=== PATIENT | female | born 1955 | race Caucasian/White ===

== ENCOUNTER 2017-05-24 17:46 | Inpatient (IN) | payer BC, SELFPAY ==
[~2017-05-24] VITALS: Ht 167.6 cm; Wt 100.0 kg
[~2017-05-24 17:46] MED LIST: AMLO5; ASPI81CH PO; Ativan1 MG PO; CRUTCH2 USE; CYCL10 PO; ESCI10 PO; FISH1000 PO; GABA300 PO; GEMF600; GEMF600 PO; HYDACE5 PO; HYDMOR2 PO; IBUP800 PO; LOSA25 PO; LOSA50 PO; LOSHYD; LOSHYD100 PO; Lopressor 50 mg50 MG PO; METCAR500 PO; METO50; METO50 PO; NIACIN; NIASPAN PO; NITR100 PO; Norco 5-325 Ta1 EACH PO; OLME20 PO; OLME20-12. PO; OMEP20ER PO; ONDA4 PO; OXYACE5T PO; OXYC30 PO; PENVK500 PO; POLY500 PO; PRED20; PRED20 PO; SPRIX1 EACH NS; ZOLP5 PO; [UNRECOGNIZED DRUG - OTHER]
[2017-05-24 18:16] LABS: BASOPHILS ABSOLUTE AUTO 0.03 K/mm3 (0.00-0.23); BASOPHILS PERCENT AUTO 0 % (0-2); EOSINOPHILS ABSOLUTE AUTO 0.04 K/mm3 (0.00-0.68); EOSINOPHILS PERCENT AUTO 0 % (0-6); Hematocrit 44.8 % (33.0-51.0); Hemoglobin 15.6 g/dL (11.5-16.0); IMMATURE GRAN ABSOLUTE AUTO 0.02 K/mm3 (0.00-0.10); IMMATURE GRAN PERCENT AUTO 0 % (0-1); LYMPHOCYTES PERCENT AUTO 34 % (21-46); MONOCYTES ABSOLUTE AUTO 0.69 K/mm3 (0.16-1.47); MONOCYTES PERCENT AUTO 7 % (4-13); Mean Corpuscular HGB 34.1 pg (26.0-34.0); Mean Corpuscular HGB Conc 34.8 g/dL (31.5-36.5); Mean Corpuscular Volume 98 fL (80-100); Mean Platelet Volume 9.3 fL (9.1-12.4); NEUTROPHILS ABSOLUTE AUTO 5.39 K/mm3 (1.96-9.15); NEUTROPHILS PERCENT AUTO 58 % (41-73); Platelet Count 343 K/mm3 (150-400); RDW Coefficient Variation 12.5 % (11.7-14.2); RDW Standard Deviation 44.5 fL (35.1-46.3); Red Blood Cell Count 4.58 M/mm3 (3.80-5.20); White Blood Cell Count 9.37 K/mm3 (4.00-11.30)
[2017-05-24] MEDS ORDERED: Omeprazole20 M1 PO (18:31)
[2017-05-24] MEDS ORDERED: ZOLP5 PO (18:32)
[2017-05-24] MEDS ORDERED: GEMF600 PO (18:33)
[2017-05-24] MEDS ORDERED: NIAC500ER PO (18:34)
[2017-05-24] MEDS ORDERED: ONDA4ODT MM (18:34)
[2017-05-24] MEDS ORDERED: Aspirin EC81 MG PO (18:34)
[2017-05-24] MEDS ORDERED: CYCL10 PO (18:34)
[2017-05-24 18:35] LABS: D-Dimer, Quantitative 1.14 mg/L FEU (0.00-0.52)
[2017-05-24] MEDS ORDERED: HYDPAM25 PO (18:35)
[2017-05-24] MEDS ORDERED: METCAR500 PO (18:35)
[2017-05-24 18:40] LABS: Alanine Aminotransfer (ALT/SGP 29 U/L (12-78); Albumin, Blood 3.7 g/dL (3.4-5.0); Albumin/Globulin Ratio 0.9 (0.8-1.8); Alk Phos 116 U/L (50-136); Anion Gap 19 mmol/L (6-16); Aspartate Aminotrans (AST/SGOT 25 U/L (12-37); Blood Urea Nitrogen 20 mg/dL (8-24); Bun/Creatinine Ratio 27.6 (12.0-20.0); CO2, Blood 18 mmol/L (21-32); Calcium, Blood 10.2 mg/dL (8.5-10.1); Chloride, Blood 99 mmol/L (98-108); Creatinine, Blood 0.72 mg/dL (0.40-1.00); Globulin, Blood 3.9 g/dL (2.2-4.0); Glomerular Filtration Rate >60 (60-); Glucose, Blood 201 mg/dL (70-99); Magnesium, Blood 2.5 mg/dL (1.6-2.4); Potassium, Blood 2.6 mmol/L (3.5-5.5); Sodium, Blood 136 mmol/L (136-145); Total Protein, Blood 7.6 g/dL (6.4-8.2); Troponin I <0.015 ng/mL (0.000-0.040)
[2017-05-24 21:43] LABS: International Normalized Ratio 0.96
[2017-05-25 04:25] LABS: BASOPHILS ABSOLUTE AUTO 0.04 K/mm3 (0.00-0.23); BASOPHILS PERCENT AUTO 1 % (0-2); EOSINOPHILS PERCENT AUTO 2 % (0-6); Hematocrit 38.9 % (33.0-51.0); Hemoglobin 13.2 g/dL (11.5-16.0); IMMATURE GRAN ABSOLUTE AUTO 0.02 K/mm3 (0.00-0.10); IMMATURE GRAN PERCENT AUTO 0 % (0-1); LYMPHOCYTES ABSOLUTE AUTO 3.47 K/mm3 (0.84-5.20); LYMPHOCYTES PERCENT AUTO 39 % (21-46); MONOCYTES ABSOLUTE AUTO 0.87 K/mm3 (0.16-1.47); MONOCYTES PERCENT AUTO 10 % (4-13); Mean Corpuscular HGB 34.3 pg (26.0-34.0); Mean Corpuscular HGB Conc 33.9 g/dL (31.5-36.5); Mean Platelet Volume 9.3 fL (9.1-12.4); NEUTROPHILS ABSOLUTE AUTO 4.27 K/mm3 (1.96-9.15); NEUTROPHILS PERCENT AUTO 48 % (41-73); Platelet Count 275 K/mm3 (150-400); RDW Coefficient Variation 12.9 % (11.7-14.2); RDW Standard Deviation 46.9 fL (35.1-46.3); Red Blood Cell Count 3.85 M/mm3 (3.80-5.20); White Blood Cell Count 8.87 K/mm3 (4.00-11.30)
[2017-05-25 04:30] LABS: Mean Corpuscular Volume 101 fL (80-100)
[2017-05-25 05:01] LABS: Alanine Aminotransfer (ALT/SGP 21 U/L (12-78); Albumin, Blood 3.2 g/dL (3.4-5.0); Alk Phos 85 U/L (50-136); Anion Gap 9 mmol/L (6-16); Aspartate Aminotrans (AST/SGOT 21 U/L (12-37); Bilirubin, Total 1.4 mg/dL (0.1-1.0); Blood Urea Nitrogen 18 mg/dL (8-24); Bun/Creatinine Ratio 27.5 (12.0-20.0); CO2, Blood 26 mmol/L (21-32); Chloride, Blood 104 mmol/L (98-108); Creatinine, Blood 0.65 mg/dL (0.40-1.00); Globulin, Blood 3.1 g/dL (2.2-4.0); Glomerular Filtration Rate >60 (60-); Glucose, Blood 142 mg/dL (70-99); Potassium, Blood 3.7 mmol/L (3.5-5.5); Sodium, Blood 139 mmol/L (136-145); Total Protein, Blood 6.3 g/dL (6.4-8.2)
[2017-05-25 05:27] LABS: Calcium, Blood 8.4 mg/dL (8.5-10.1)
[2017-05-26 05:11] LABS: BASOPHILS ABSOLUTE AUTO 0.03 K/mm3 (0.00-0.23); BASOPHILS PERCENT AUTO 1 % (0-2); EOSINOPHILS ABSOLUTE AUTO 0.19 K/mm3 (0.00-0.68); EOSINOPHILS PERCENT AUTO 4 % (0-6); Hemoglobin 12.1 g/dL (11.5-16.0); IMMATURE GRAN ABSOLUTE AUTO 0.01 K/mm3 (0.00-0.10); IMMATURE GRAN PERCENT AUTO 0 % (0-1); LYMPHOCYTES ABSOLUTE AUTO 1.99 K/mm3 (0.84-5.20); LYMPHOCYTES PERCENT AUTO 42 % (21-46); MONOCYTES ABSOLUTE AUTO 0.45 K/mm3 (0.16-1.47); MONOCYTES PERCENT AUTO 10 % (4-13); Mean Corpuscular HGB Conc 32.7 g/dL (31.5-36.5); Mean Platelet Volume 9.2 fL (9.1-12.4); NEUTROPHILS ABSOLUTE AUTO 2.07 K/mm3 (1.96-9.15); NEUTROPHILS PERCENT AUTO 44 % (41-73); Platelet Count 205 K/mm3 (150-400); RDW Coefficient Variation 12.7 % (11.7-14.2); RDW Standard Deviation 48.5 fL (35.1-46.3); Red Blood Cell Count 3.56 M/mm3 (3.80-5.20); White Blood Cell Count 4.74 K/mm3 (4.00-11.30)
[2017-05-26 05:17] LABS: Mean Corpuscular Volume 104 fL (80-100)
[2017-05-26 05:47] LABS: Magnesium, Blood 2.3 mg/dL (1.6-2.4)
[2017-05-26 05:48] LABS: Anion Gap 5 mmol/L (6-16); Blood Urea Nitrogen 19 mg/dL (8-24); Bun/Creatinine Ratio 31.4 (12.0-20.0); CO2, Blood 27 mmol/L (21-32); Calcium, Blood 8.4 mg/dL (8.5-10.1); Chloride, Blood 105 mmol/L (98-108); Creatinine, Blood 0.61 mg/dL (0.40-1.00); Glomerular Filtration Rate >60 (60-); Glucose, Blood 113 mg/dL (70-99); Potassium, Blood 4.1 mmol/L (3.5-5.5); Sodium, Blood 137 mmol/L (136-145)
[2017-05-26] MEDS ORDERED: LOPE2C PO (10:30)
[2017-05-26] MEDS ORDERED: Percocet 5-3251 EACH PO (10:32)
== END 2017-05-26 11:33 | disposition home or self-care (01) | DRG 309 ==
LOC: ER 17:46 → PCU 17:47
PROVIDERS: Emergency Medicine; Internal Medicine
PROC: 3E0234Z Introduction of Serum, Toxoid and Vaccine into Muscle, Percutaneous Approach (ICD-10-PCS; principal; 2017-05-25)
DX: I48.91 Unspecified atrial fibrillation (principal); S22.31XA Fracture of one rib, right side, initial encounter for closed fracture; E86.0 Dehydration; E87.6 Hypokalemia; I10 Essential (primary) hypertension; K44.9 Diaphragmatic hernia without obstruction or gangrene; Z23 Encounter for immunization; Z79.82 Long term (current) use of aspirin; Z79.899 Other long term (current) drug therapy; Z88.8 Allergy status to other drugs, medicaments and biological substances
CPT/HCPCS: 36415; 70450; 71045; 71260; 80048; 80053; 83036; 83735; 83880; 84484; 85025; 85379; 85610; 85730; 87015; 87045; 87046; 87205; 87899; 93005; 93010; 96365; 96367; 96368; 96372; 96375; 96376; 99285; G0008; G0378; J1644; J1650; J2001; J2060; J2270; J2405; J3480; J7030; J7050; Q2038; Q9967

== ENCOUNTER 2017-05-28 17:46 | Observation (INO) | payer BC, SELFPAY ==
[~2017-05-28] VITALS: Ht 167.6 cm; Wt 104.7 kg
[~2017-05-28 17:46] MED LIST changes: +Aspirin EC81 MG PO; +HYDPAM25 PO; +LOPE2C PO; +NIAC500ER PO; +ONDA4ODT MM; +Omeprazole20 M1 PO; +Percocet 5-3251 EACH PO
[2017-05-28 18:28] LABS: BASOPHILS ABSOLUTE AUTO 0.02 K/mm3 (0.00-0.23); BASOPHILS PERCENT AUTO 0 % (0-2); EOSINOPHILS ABSOLUTE AUTO 0.11 K/mm3 (0.00-0.68); EOSINOPHILS PERCENT AUTO 2 % (0-6); Hematocrit 42.8 % (33.0-51.0); Hemoglobin 15.3 g/dL (11.5-16.0); IMMATURE GRAN ABSOLUTE AUTO 0.02 K/mm3 (0.00-0.10); IMMATURE GRAN PERCENT AUTO 0 % (0-1); LYMPHOCYTES ABSOLUTE AUTO 3.19 K/mm3 (0.84-5.20); LYMPHOCYTES PERCENT AUTO 46 % (21-46); MONOCYTES ABSOLUTE AUTO 0.33 K/mm3 (0.16-1.47); MONOCYTES PERCENT AUTO 5 % (4-13); Mean Corpuscular HGB 34.9 pg (26.0-34.0); Mean Corpuscular HGB Conc 35.7 g/dL (31.5-36.5); Mean Platelet Volume 9.2 fL (9.1-12.4); NEUTROPHILS PERCENT AUTO 47 % (41-73); Platelet Count 287 K/mm3 (150-400); RDW Coefficient Variation 12.5 % (11.7-14.2); RDW Standard Deviation 44.5 fL (35.1-46.3); Red Blood Cell Count 4.38 M/mm3 (3.80-5.20); White Blood Cell Count 6.97 K/mm3 (4.00-11.30)
[2017-05-28 18:39] LABS: Mean Corpuscular Volume 98 fL (80-100)
[2017-05-28 18:42] LABS: Source, Urine Clean Catch
[2017-05-28 18:53] LABS: Troponin I <0.015 ng/mL (0.000-0.040)
[2017-05-28 18:53] LABS: Appearance, Urine Clear (Clear); Bilirubin, Urine Neg (Neg); Blood, Urine 2+ (Neg); Color, Urine Yellow (P-Yellow); Glucose Qualitative, Urine Neg (Neg); Ketones, Urine Neg (Neg); Leukocyte Esterase, Urine 1+ (Neg); Nitrite, Urine Neg (Neg); Protein, Urine Neg (Neg); Specific Gravity, Urine 1.005 (1.003-1.022); Urobilinogen, Urine NORM (Normal)
[2017-05-28 19:09] LABS: Alanine Aminotransfer (ALT/SGP 36 U/L (12-78); Albumin, Blood 3.6 g/dL (3.4-5.0); Albumin/Globulin Ratio 0.9 (0.8-1.8); Alk Phos 102 U/L (50-136); Anion Gap 17 mmol/L (6-16); Aspartate Aminotrans (AST/SGOT 42 U/L (12-37); Bilirubin, Total 0.6 mg/dL (0.1-1.0); Blood Urea Nitrogen 13 mg/dL (8-24); Bun/Creatinine Ratio 21.8 (12.0-20.0); CO2, Blood 16 mmol/L (21-32); Calcium, Blood 8.8 mg/dL (8.5-10.1); Chloride, Blood 107 mmol/L (98-108); Glomerular Filtration Rate >60 (60-); Glucose, Blood 156 mg/dL (70-99); Sodium, Blood 140 mmol/L (136-145); Total Protein, Blood 7.6 g/dL (6.4-8.2)
[2017-05-28 19:15] LABS: White Blood Cells, Urine 0-2 /hpf (0-5)
[2017-05-28 19:16] LABS: Bacteria Few /hpf; Squamous Epithelial Cells Few /hpf (Few)
[2017-05-28] MEDS ORDERED: ZOLP5 PO (20:49)
[2017-05-29 02:24] LABS: BASOPHILS ABSOLUTE AUTO 0.04 K/mm3 (0.00-0.23); BASOPHILS PERCENT AUTO 1 % (0-2); EOSINOPHILS ABSOLUTE AUTO 0.21 K/mm3 (0.00-0.68); EOSINOPHILS PERCENT AUTO 3 % (0-6); Hematocrit 40.8 % (33.0-51.0); Hemoglobin 13.9 g/dL (11.5-16.0); IMMATURE GRAN ABSOLUTE AUTO 0.02 K/mm3 (0.00-0.10); IMMATURE GRAN PERCENT AUTO 0 % (0-1); LYMPHOCYTES ABSOLUTE AUTO 4.14 K/mm3 (0.84-5.20); LYMPHOCYTES PERCENT AUTO 55 % (21-46); MONOCYTES ABSOLUTE AUTO 0.74 K/mm3 (0.16-1.47); MONOCYTES PERCENT AUTO 10 % (4-13); Mean Corpuscular HGB 34.5 pg (26.0-34.0); Mean Corpuscular HGB Conc 34.1 g/dL (31.5-36.5); Mean Platelet Volume 9.2 fL (9.1-12.4); NEUTROPHILS ABSOLUTE AUTO 2.33 K/mm3 (1.96-9.15); NEUTROPHILS PERCENT AUTO 31 % (41-73); Platelet Count 248 K/mm3 (150-400); RDW Coefficient Variation 12.8 % (11.7-14.2); RDW Standard Deviation 46.9 fL (35.1-46.3); Red Blood Cell Count 4.03 M/mm3 (3.80-5.20); White Blood Cell Count 7.48 K/mm3 (4.00-11.30)
[2017-05-29 02:27] LABS: Mean Corpuscular Volume 101 fL (80-100)
[2017-05-29 02:44] LABS: CPK Creatine Kinase 48 U/L (26-193); Troponin I <0.015 ng/mL (0.000-0.040)
[2017-05-29 02:47] LABS: Alanine Aminotransfer (ALT/SGP 27 U/L (12-78); Albumin, Blood 3.4 g/dL (3.4-5.0); Alk Phos 82 U/L (50-136); Anion Gap 6 mmol/L (6-16); Aspartate Aminotrans (AST/SGOT 28 U/L (12-37); Bilirubin, Total 0.4 mg/dL (0.1-1.0); Blood Urea Nitrogen 14 mg/dL (8-24); Bun/Creatinine Ratio 24.3 (12.0-20.0); CO2, Blood 25 mmol/L (21-32); Calcium, Blood 8.4 mg/dL (8.5-10.1); Chloride, Blood 110 mmol/L (98-108); Creatinine, Blood 0.58 mg/dL (0.40-1.00); Globulin, Blood 3.5 g/dL (2.2-4.0); Glomerular Filtration Rate >60 (60-); Glucose, Blood 98 mg/dL (70-99); Sodium, Blood 141 mmol/L (136-145); Total Protein, Blood 6.9 g/dL (6.4-8.2)
[2017-05-29 12:06] LABS: CPK Creatine Kinase 39 U/L (26-193); Troponin I <0.015 ng/mL (0.000-0.040)
[2017-05-29] MEDS ORDERED: ALPR.5 PO (12:11)
== END 2017-05-29 14:41 | disposition home or self-care (01) ==
LOC: ER 17:46 → MEDS 17:47 → ER 17:47 → MEDS 17:47 → ENPENDDIS 05-29 10:00 → MEDS 05-29 13:15 → ER 05-29 14:04 → MEDS 05-29 14:04
PROVIDERS: Internal Medicine; Physician Assistant
DX: R07.89 Other chest pain (principal); G89.29 Other chronic pain; I10 Essential (primary) hypertension; Z79.891 Long term (current) use of opiate analgesic; F10.20 Alcohol dependence, uncomplicated; E87.6 Hypokalemia; I48.0 Paroxysmal atrial fibrillation; E87.2 Acidosis; M19.90 Unspecified osteoarthritis, unspecified site; K31.84 Gastroparesis; Z79.82 Long term (current) use of aspirin; Z79.899 Other long term (current) drug therapy; Z88.1 Allergy status to other antibiotic agents; Z88.8 Allergy status to other drugs, medicaments and biological substances
CPT/HCPCS: 36415; 71046; 80053; 81001; 82550; 83690; 84484; 85025; 87086; 93005; 93010; 96372; 96374; 96375; 96376; 99285; G0378; J1170; J1650; J2060; J2270; J3480; J3490; J7030

== ENCOUNTER 2017-05-30 20:45 | Emergency (ER) | payer BC, SELFPAY ==
[~2017-05-30] VITALS: Ht 167.6 cm; Wt 95.2 kg
[~2017-05-30 20:45] MED LIST changes: +ALPR.5 PO
[2017-05-30 22:03] LABS: BASOPHILS ABSOLUTE AUTO 0.03 K/mm3 (0.00-0.23); BASOPHILS PERCENT AUTO 0 % (0-2); EOSINOPHILS ABSOLUTE AUTO 0.24 K/mm3 (0.00-0.68); EOSINOPHILS PERCENT AUTO 3 % (0-6); Hematocrit 41.4 % (33.0-51.0); Hemoglobin 14.2 g/dL (11.5-16.0); IMMATURE GRAN ABSOLUTE AUTO 0.03 K/mm3 (0.00-0.10); IMMATURE GRAN PERCENT AUTO 0 % (0-1); LYMPHOCYTES ABSOLUTE AUTO 2.72 K/mm3 (0.84-5.20); LYMPHOCYTES PERCENT AUTO 37 % (21-46); MONOCYTES ABSOLUTE AUTO 0.65 K/mm3 (0.16-1.47); MONOCYTES PERCENT AUTO 9 % (4-13); Mean Corpuscular HGB 34.5 pg (26.0-34.0); Mean Corpuscular HGB Conc 34.3 g/dL (31.5-36.5); Mean Corpuscular Volume 101 fL (80-100); Mean Platelet Volume 9.5 fL (9.1-12.4); NEUTROPHILS ABSOLUTE AUTO 3.77 K/mm3 (1.96-9.15); NEUTROPHILS PERCENT AUTO 51 % (41-73); Platelet Count 284 K/mm3 (150-400); RDW Coefficient Variation 12.7 % (11.7-14.2); RDW Standard Deviation 46.2 fL (35.1-46.3); Red Blood Cell Count 4.12 M/mm3 (3.80-5.20); White Blood Cell Count 7.44 K/mm3 (4.00-11.30)
[2017-05-30 22:23] LABS: Alanine Aminotransfer (ALT/SGP 24 U/L (12-78); Albumin, Blood 3.6 g/dL (3.4-5.0); Alk Phos 93 U/L (50-136); Anion Gap 8 mmol/L (6-16); Aspartate Aminotrans (AST/SGOT 29 U/L (12-37); Bilirubin, Total 0.4 mg/dL (0.1-1.0); Blood Urea Nitrogen 11 mg/dL (8-24); Bun/Creatinine Ratio 18.1 (12.0-20.0); CO2, Blood 25 mmol/L (21-32); Calcium, Blood 8.6 mg/dL (8.5-10.1); Chloride, Blood 109 mmol/L (98-108); Creatinine, Blood 0.61 mg/dL (0.40-1.00); Globulin, Blood 3.7 g/dL (2.2-4.0); Glomerular Filtration Rate >60 (60-); Glucose, Blood 138 mg/dL (70-99); Potassium, Blood 3.7 mmol/L (3.5-5.5); Sodium, Blood 142 mmol/L (136-145); Total Protein, Blood 7.3 g/dL (6.4-8.2); Troponin I <0.015 ng/mL (0.000-0.040)
== END 2017-05-31 00:10 | disposition home or self-care (01) ==
LOC: ER 20:45
PROVIDERS: Emergency Medicine
DX: R07.89 Other chest pain (principal); I48.91 Unspecified atrial fibrillation; F41.9 Anxiety disorder, unspecified; Z88.8 Allergy status to other drugs, medicaments and biological substances; Z88.5 Allergy status to narcotic agent; Z91.030 Bee allergy status; Z88.1 Allergy status to other antibiotic agents; Z79.899 Other long term (current) drug therapy; Z79.82 Long term (current) use of aspirin; Z96.653 Presence of artificial knee joint, bilateral; Z90.710 Acquired absence of both cervix and uterus; Z90.89 Acquired absence of other organs; Z90.49 Acquired absence of other specified parts of digestive tract
CPT/HCPCS: 36415; 71046; 80053; 84484; 85025; 93005; 93010; 96374; 96375; 96376; 99284; J2270; J2405

== ENCOUNTER 2017-08-07 17:03 | Observation (INO) | payer BC, SELFPAY ==
[~2017-08-07] VITALS: Ht 167.6 cm; Wt 95.2 kg
[2017-08-07 17:45] LABS: Hematocrit 42.9 % (33.0-51.0); Hemoglobin 14.9 g/dL (11.5-16.0); Mean Corpuscular HGB 34.6 pg (26.0-34.0); Mean Corpuscular HGB Conc 34.7 g/dL (31.5-36.5); Mean Corpuscular Volume 100 fL (80-100); RDW Coefficient Variation 11.8 % (11.7-14.2); RDW Standard Deviation 43.6 fL (35.1-46.3); Red Blood Cell Count 4.31 M/mm3 (3.80-5.20); White Blood Cell Count 5.31 K/mm3 (4.00-11.30)
[2017-08-07 17:47] LABS: Mean Platelet Volume 9.6 fL (9.1-12.4); Platelet Count 240 K/mm3 (150-400)
[2017-08-07 17:54] LABS: Alanine Aminotransfer (ALT/SGP 42 U/L (12-78); Albumin, Blood 3.6 g/dL (3.4-5.0); Albumin/Globulin Ratio 0.9 (0.8-1.8); Alk Phos 109 U/L (50-136); Anion Gap 15 mmol/L (6-16); Aspartate Aminotrans (AST/SGOT 53 U/L (12-37); Bilirubin, Total 0.7 mg/dL (0.1-1.0); Blood Urea Nitrogen 18 mg/dL (8-24); Bun/Creatinine Ratio 29.3 (12.0-20.0); CO2, Blood 18 mmol/L (21-32); Calcium, Blood 9.1 mg/dL (8.5-10.1); Chloride, Blood 105 mmol/L (98-108); Creatinine, Blood 0.61 mg/dL (0.40-1.00); Glomerular Filtration Rate >60 (60-); Glucose, Blood 175 mg/dL (70-99); Potassium, Blood 2.9 mmol/L (3.5-5.5); Sodium, Blood 138 mmol/L (136-145); Total Protein, Blood 7.6 g/dL (6.4-8.2); Troponin I <0.015 ng/mL (0.000-0.040)
[2017-08-07 18:03] LABS: BASOPHILS PERCENT MAN 0 % (0-2); EOSINOPHILS ABSOLUTE MAN 0.15 K/mm3 (0.00-0.68); EOSINOPHILS PERCENT MAN 3 % (0-6); LYMPHOCYTES ABSOLUTE MAN 2.44 K/mm3 (0.84-5.20); LYMPHOCYTES PERCENT MAN 46 % (21-46); MONOCYTES ABSOLUTE MAN 0.47 K/mm3 (0.16-1.47); MONOCYTES PERCENT MAN 9 % (4-13); NEUTROPHILS ABSOLUTE MAN 2.23 K/mm3 (1.96-9.15); SEG NEUTROPHILS PERCENT MAN 42 % (41-73); TOTAL CELLS COUNTED 100
[2017-08-07] MEDS ORDERED: GABA600 PO (19:23)
[2017-08-07] MEDS ORDERED: ELIQUIS5 MG PO (19:36)
[2017-08-08 01:42] LABS: Anion Gap 11 mmol/L (6-16); Blood Urea Nitrogen 21 mg/dL (8-24); Bun/Creatinine Ratio 37.6 (12.0-20.0); CO2, Blood 22 mmol/L (21-32); Calcium, Blood 8.6 mg/dL (8.5-10.1); Chloride, Blood 107 mmol/L (98-108); Creatinine, Blood 0.56 mg/dL (0.40-1.00); Glomerular Filtration Rate >60 (60-); Glucose, Blood 126 mg/dL (70-99); Potassium, Blood 3.3 mmol/L (3.5-5.5); Sodium, Blood 140 mmol/L (136-145)
[2017-08-08] MEDS ORDERED: ASPI81CH PO (18:11)
[2017-08-08] MEDS ORDERED: Percocet 5-3251 EACH PO (18:12)
== END 2017-08-08 18:47 | disposition home or self-care (01) ==
LOC: ER 17:03 → MEDS 17:04
PROVIDERS: Internal Medicine; Physician Assistant
DX: R07.9 Chest pain, unspecified (principal); I48.91 Unspecified atrial fibrillation; I10 Essential (primary) hypertension; E87.6 Hypokalemia; R01.1 Cardiac murmur, unspecified; Z88.1 Allergy status to other antibiotic agents; Z88.5 Allergy status to narcotic agent; Z88.8 Allergy status to other drugs, medicaments and biological substances; Z79.899 Other long term (current) drug therapy
CPT/HCPCS: 36415; 71046; 80048; 80053; 83036; 83735; 83880; 84484; 85025; 93005; 93010; 93308; 93321; 96365; 96366; 96375; 99285; G0378; J2001; J2405; J3480; J7030

== ENCOUNTER → 2017-11-03 | Outpatient (CLI) | payer BC, SELFPAY ==
[~2017-11-03] MED LIST changes: +ELIQUIS5 MG PO; +GABA600 PO
== END | disposition home or self-care (01) ==
LOC: LAB SHORT 10:20 → LAB UCHC 10:20
DX: N39.0 Urinary tract infection, site not specified (principal)
CPT/HCPCS: 87077; 87086; 87186

== ENCOUNTER → 2017-11-10 | Outpatient (CLI) | payer BC, SELFPAY | END | disposition home or self-care (01) | LOC: LAB EV 12:38 → LAB SHORT 12:38 | DX: N39.0 Urinary tract infection, site not specified (principal) | CPT/HCPCS: 87086 ==

== ENCOUNTER 2018-01-10 20:26 | Emergency (ER) | payer BC, SELFPAY ==
[~2018-01-10] VITALS: Ht 170.2 cm; Wt 95.2 kg
== END 2018-01-10 22:35 | disposition home or self-care (01) ==
LOC: ER 20:26
DX: S01.112A Laceration without foreign body of left eyelid and periocular area, initial encounter (principal); K21.9 Gastro-esophageal reflux disease without esophagitis; G62.9 Polyneuropathy, unspecified; Z91.030 Bee allergy status; Z91.038 Other insect allergy status; Z88.1 Allergy status to other antibiotic agents; Z88.8 Allergy status to other drugs, medicaments and biological substances; Z88.5 Allergy status to narcotic agent; Z79.899 Other long term (current) drug therapy; Z23 Encounter for immunization; W19.XXXA Unspecified fall, initial encounter; W22.8XXA Striking against or struck by other objects, initial encounter
CPT/HCPCS: 12013; 90471; 90714; 99282

== ENCOUNTER → 2018-02-09 | Outpatient (CLI) | payer BC | END | disposition home or self-care (01) | LOC: LAB EV 13:22 → LAB SHORT 13:22 | DX: N39.0 Urinary tract infection, site not specified (principal) | CPT/HCPCS: 87086 ==

== ENCOUNTER 2018-07-31 07:14 | Day surgery (SDC) | payer BC, OTHER ==
[2018-08-16] MEDS ORDERED: METO50 PO (11:03)
[2018-08-16] MEDS ORDERED: POLY500 PO (11:04)
[2018-08-16] MEDS ORDERED: LOSA50 PO (11:04)
[2018-08-16] MEDS ORDERED: FISH OIL 1,001000 MG PO (11:04)
[2018-08-16] MEDS ORDERED: ONDA8 PO (11:05)
[2018-08-16] MEDS ORDERED: ASPI81CH PO (11:05)
[2018-08-16] MEDS ORDERED: Percocet 5-3251 EACH PO (11:06)
== END 2018-07-31 22:38 | disposition home or self-care (01) ==
LOC: MOI US 07:14 → MOI MAM 07:30 → MOI US 08:30 → MOI MAM 08:30 → MOI US 22:38
PROC: 0HBU3ZX Excision of Left Breast, Percutaneous Approach, Diagnostic (ICD-10-PCS; principal; 2018-07-31)
DX: C50.812 Malignant neoplasm of overlapping sites of left female breast (principal); Z17.0 Estrogen receptor positive status [ER+]
CPT/HCPCS: 19083; 19084; 77065; 88305; 88360; A4648; G0279

== ENCOUNTER 2018-08-21 07:22 | Day surgery (SDC) | payer MEDICARE, BC ==
[~2018-08-21] VITALS: Ht 160 cm; Wt 101.6 kg
[~2018-08-21 07:22] MED LIST changes: +FISH OIL 1,001000 MG PO; +ONDA8 PO
--- NOTE | 2018-08-21 10:48 | NUR ---
History, Chart, Medications and Allergies reviewed before start of procedure. Patient confirms NPO status and agrees with scheduled surgery. Lungs clear T/O to Auscultation. Patient reports completing Chlorhexadine shower X2 prior to admission to hospital. Patient States Post-Procedure ride home has been arranged. Pre-Op teaching done. Pt verbalizes understanding.
--- NOTE | 2018-08-21 11:12 | NUR ---
FAMILY LIFE EDUCATOR REPORT COMPLETED AT BEDSIDE.
--- NOTE | 2018-08-21 15:42 | NUR ---
1535 Patient up to Ambulate independently. Gait steady. Discharge instructions reviewed with patient. Patient verbalizes understanding. Copy given to patient to take home. Patient States Post-Procedure ride home has been arranged. Discharged via wheelchair to private car for ride home. PT PLACES CONTACT LENSES IN BILAT EYES PRIOR TO DC.
== END 2018-08-21 22:43 | disposition home or self-care (01) ==
LOC: RAD 07:22 → MOI US 07:30 → RAD 07:30 → ORSCMMR 09:23 → RAD 22:43
DX: C50.412 Malignant neoplasm of upper-outer quadrant of left female breast (principal); I10 Essential (primary) hypertension; E11.9 Type 2 diabetes mellitus without complications; M54.9 Dorsalgia, unspecified; E78.5 Hyperlipidemia, unspecified; Z79.82 Long term (current) use of aspirin; Z79.899 Other long term (current) drug therapy; Z88.1 Allergy status to other antibiotic agents; Z88.8 Allergy status to other drugs, medicaments and biological substances; Z88.5 Allergy status to narcotic agent
CPT/HCPCS: 19281; 19282; 38792; A9520; J0690; J1100; J1200; J2250; J2270; J2370; J2405; J2704; J2710; J3010; J7120; Q9968

== ENCOUNTER 2018-09-09 12:55 | Emergency (ER) | payer BC ==
[~2018-09-09] VITALS: Ht 165.1 cm; Wt 99.8 kg
[2018-09-09] MEDS ORDERED: ZOLP5 PO (13:55)
[2018-09-09] MEDS ORDERED: Norco 5-325 Ta1 EACH PO (14:42)
== END 2018-09-09 15:02 | disposition home or self-care (01) ==
LOC: ER 12:55
DX: S43.014A Anterior dislocation of right humerus, initial encounter (principal); S43.034A Inferior dislocation of right humerus, initial encounter; I10 Essential (primary) hypertension; I48.91 Unspecified atrial fibrillation; Z79.82 Long term (current) use of aspirin; Z79.899 Other long term (current) drug therapy; W18.30XA Fall on same level, unspecified, initial encounter
CPT/HCPCS: 23650; 36415; 73020; 99152; 99283-25; J2704; J7030

== ENCOUNTER 2018-09-12 12:37 | Day surgery (SDC) | payer BC ==
[~2018-09-12] VITALS: Ht 165.1 cm; Wt 100.3 kg
[2018-09-12] MEDS ORDERED: BAYER CHEWABLE81 MG (12:57)
--- NOTE | 2018-09-12 15:34 | NUR ---
09/12/18 1534 Leeann Cross LATE ENTRY PORT CXR TO CONFIRM PLACEMENT AT 1505
== END 2018-09-12 16:09 | disposition home or self-care (01) ==
LOC: ORSCSDS 12:37
PROVIDERS: Surgery
PROC: 0JH60WZ Insertion of Totally Implantable Vascular Access Device into Chest Subcutaneous Tissue and Fascia, Open Approach (ICD-10-PCS; principal; 2018-09-12 13:45)
DX: C50.412 Malignant neoplasm of upper-outer quadrant of left female breast (principal); I10 Essential (primary) hypertension; E78.5 Hyperlipidemia, unspecified; Z79.899 Other long term (current) drug therapy
CPT/HCPCS: 77001; C1788; J0690; J1100; J1642; J2250; J2370; J2405; J2704; J7120

== ENCOUNTER 2018-09-28 11:24 | Emergency (ER) | payer BC, OTHER ==
[~2018-09-28] VITALS: Ht 165.1 cm; Wt 95.2 kg
[~2018-09-28 11:24] MED LIST changes: +BAYER CHEWABLE81 MG
[2018-09-28 12:28] LABS: Hematocrit 36.9 % (33.0-51.0); Hemoglobin 12.6 g/dL (11.5-16.0); Mean Corpuscular HGB 35.7 pg (26.0-34.0); Mean Corpuscular HGB Conc 34.1 g/dL (31.5-36.5); Mean Corpuscular Volume 105 fL (80-100); Platelet Count 129 K/mm3 (150-400); RDW Coefficient Variation 12.2 % (11.7-14.2); RDW Standard Deviation 47.2 fL (35.1-46.3); Red Blood Cell Count 3.53 M/mm3 (3.80-5.20); White Blood Cell Count 3.79 K/mm3 (4.00-11.30)
[2018-09-28 12:51] LABS: Alanine Aminotransfer (ALT/SGP 297 U/L (12-78); Albumin, Blood 3.1 g/dL (3.4-5.0); Albumin/Globulin Ratio 0.9 (0.8-1.8); Alk Phos 150 U/L (50-136); Anion Gap 6 mmol/L (6-16); Aspartate Aminotrans (AST/SGOT 269 U/L (12-37); Bilirubin, Total 0.5 mg/dL (0.1-1.0); Blood Urea Nitrogen 11 mg/dL (8-24); Bun/Creatinine Ratio 19.4 (12.0-20.0); CO2, Blood 29 mmol/L (21-32); Calcium, Blood 8.9 mg/dL (8.5-10.1); Chloride, Blood 107 mmol/L (98-108); Creatinine, Blood 0.57 mg/dL (0.40-1.00); Globulin, Blood 3.3 g/dL (2.2-4.0); Glomerular Filtration Rate >60 (60-); Glucose, Blood 104 mg/dL (70-99); Potassium, Blood 4.3 mmol/L (3.5-5.5); Sodium, Blood 142 mmol/L (136-145); Total Protein, Blood 6.4 g/dL (6.4-8.2); Troponin I <0.015 ng/mL (0.000-0.040)
[2018-09-28 13:04] LABS: BAND PERCENT MAN 3 % (0-8); BASOPHILS ABSOLUTE MAN 0.11 K/mm3 (0.00-0.23); BASOPHILS PERCENT MAN 3 % (0-2); EOSINOPHILS ABSOLUTE MAN 0.11 K/mm3 (0.00-0.68); EOSINOPHILS PERCENT MAN 3 % (0-6); LYMPHOCYTES % ATYPICAL MANUAL 2 % (0-0); LYMPHOCYTES ABSOLUTE MAN 1.55 K/mm3 (0.84-5.20); LYMPHOCYTES PERCENT MAN 39 % (21-46); MONOCYTES ABSOLUTE MAN 0.11 K/mm3 (0.16-1.47); MONOCYTES PERCENT MAN 3 % (4-13); NEUTROPHILS ABSOLUTE MAN 1.89 K/mm3 (1.96-9.15); SEG NEUTROPHILS PERCENT MAN 47 % (41-73); TOTAL CELLS COUNTED 100
[2018-09-28] MEDS ORDERED: Percocet 5-3251 EACH PO (16:55)
== END 2018-09-28 17:18 | disposition home or self-care (01) ==
LOC: ER 11:24
PROVIDERS: Emergency Medicine
DX: R07.9 Chest pain, unspecified (principal); Z79.899 Other long term (current) drug therapy; Z90.49 Acquired absence of other specified parts of digestive tract; Z88.1 Allergy status to other antibiotic agents; Z91.038 Other insect allergy status; Z88.8 Allergy status to other drugs, medicaments and biological substances
CPT/HCPCS: 36415; 71046; 71260; 74177; 80053; 83690; 84484; 85025; 85379; 93005; 93010; 96374-59; 96375-59; 99284-25; J2270; J2405; Q9967

== ENCOUNTER 2018-10-15 22:19 | Observation (INO) | payer BC, OTHER ==
[~2018-10-15] VITALS: Ht 165.1 cm; Wt 98.7 kg
[2018-10-15 22:58] LABS: BASOPHILS ABSOLUTE AUTO 0.07 K/mm3 (0.00-0.23); BASOPHILS PERCENT AUTO 1 % (0-2); Hematocrit 33.7 % (33.0-51.0); Hemoglobin 11.8 g/dL (11.5-16.0); LYMPHOCYTES PERCENT AUTO 7 % (21-46); MONOCYTES ABSOLUTE AUTO 0.82 K/mm3 (0.16-1.47); MONOCYTES PERCENT AUTO 6 % (4-13); Mean Corpuscular HGB 35.4 pg (26.0-34.0); NRBC ABSOLUTE 0.04 K/mm3 (0.00-0.02); NRBC Auto 0.3 /100 WBC (0.0-0.2); RDW Coefficient Variation 12.5 % (11.7-14.2); RDW Standard Deviation 45.1 fL (35.1-46.3); Red Blood Cell Count 3.33 M/mm3 (3.80-5.20); White Blood Cell Count 12.88 K/mm3 (4.00-11.30)
[2018-10-15 22:59] LABS: EOSINOPHILS ABSOLUTE AUTO 0.01 K/mm3 (0.00-0.68); EOSINOPHILS PERCENT AUTO 0 % (0-6); IMMATURE GRAN PERCENT AUTO 6 % (0-1); Mean Corpuscular Volume 101 fL (80-100); NEUTROPHILS ABSOLUTE AUTO 10.28 K/mm3 (1.96-9.15); NEUTROPHILS PERCENT AUTO 80 % (41-73); Platelet Count 200 K/mm3 (150-400)
[2018-10-15 23:07] LABS: BAND PERCENT MAN 2 % (0-8); BASOPHILS PERCENT MAN 0 % (0-2); EOSINOPHILS PERCENT MAN 0 % (0-6); LYMPHOCYTES ABSOLUTE MAN 0.77 K/mm3 (0.84-5.20); LYMPHOCYTES PERCENT MAN 6 % (21-46); METAMYELOCYTE ABSOLUTE MAN 0.12 K/mm3 (0.00-0.00); METAMYELOCYTE PERCENT MAN 1 % (0-0); MONOCYTES ABSOLUTE MAN 1.15 K/mm3 (0.16-1.47); MONOCYTES PERCENT MAN 9 % (4-13); NEUTROPHILS ABSOLUTE MAN 10.69 K/mm3 (1.96-9.15); SEG NEUTROPHILS PERCENT MAN 81 % (41-73); TOTAL CELLS COUNTED 100
[2018-10-15 23:09] LABS: Alanine Aminotransfer (ALT/SGP 27 U/L (12-78); Albumin, Blood 3.3 g/dL (3.4-5.0); Albumin/Globulin Ratio 0.9 (0.8-1.8); Alk Phos 121 U/L (50-136); Anion Gap 10 mmol/L (6-16); Aspartate Aminotrans (AST/SGOT 17 U/L (12-37); Bilirubin, Total 0.3 mg/dL (0.1-1.0); Blood Urea Nitrogen 8 mg/dL (8-24); Bun/Creatinine Ratio 14.1 (12.0-20.0); CO2, Blood 25 mmol/L (21-32); Calcium, Blood 9.2 mg/dL (8.5-10.1); Chloride, Blood 107 mmol/L (98-108); Creatinine, Blood 0.57 mg/dL (0.40-1.00); Globulin, Blood 3.8 g/dL (2.2-4.0); Glomerular Filtration Rate >60 (60-); Glucose, Blood 157 mg/dL (70-99); Sodium, Blood 142 mmol/L (136-145); Total Protein, Blood 7.1 g/dL (6.4-8.2)
[2018-10-15 23:10] LABS: PROMYELOCYTE ABSOLUTE MAN 0.12 K/mm3 (0.00-0.00); PROMYELOCYTE PERCENT MAN 1 % (0-0)
[2018-10-15] MEDS ORDERED: FLUC100 PO (23:34)
[2018-10-15 23:45] LABS: D-Dimer, Quantitative 1.16 mg/L FEU (0.00-0.52); International Normalized Ratio 0.99; Prothrombin Time Results 10.5 Sec (9.7-11.5)
[2018-10-16] MEDS ORDERED: Lomotil Tablet1 EACH PO (02:02)
--- NOTE | 2018-10-16 04:42 | NUR ---
PROPELLANT CHARGE ZONE ASSEMBLER SUMMARY NEW ADMIT FROM THE ED TONIGHT. PT AAOX4 AND PLEASANT WITH CARE. CAME IN WITH CP R/T AFIB W/ RVR. PT PLACED ON TELEMETRY, HAS BEEN NSR IN 80-90'S SINCE ARRIVING TO THE FLOOR. GAVE PERCOCET FOR SOME CHEST DISCOMFORT WHICH RELIEVED PAIN. PT DENIES SOB, N/V, DIAPHORESIS. PT ABLE TO AMBULATE WITH A STANDBY ASSIST. SAYS SHE IS MORE WEAK THAN NORMAL DUE TO RECENTLY STARTING CHEMO. LAST TREATMENT 2 WEEKS AGO. VSS, WILL CONTINUE TO MONITOR.
[2018-10-16 05:21] LABS: Anion Gap 7 mmol/L (6-16); Blood Urea Nitrogen 10 mg/dL (8-24); Bun/Creatinine Ratio 19.9 (12.0-20.0); CO2, Blood 25 mmol/L (21-32); Calcium, Blood 8.4 mg/dL (8.5-10.1); Chloride, Blood 109 mmol/L (98-108); Glomerular Filtration Rate >60 (60-); Glucose, Blood 133 mg/dL (70-99); Sodium, Blood 141 mmol/L (136-145)
[2018-10-16] MEDS ORDERED: XYLOCAINE 2% VISCOUS PO (12:23)
[2018-10-16] MEDS ORDERED: NYST100000 PO (12:24)
--- NOTE | 2018-10-16 14:45 | NUR ---
DISCHARGE PT DISCHARGED TO HOME. THIS RN EXPLAINED DISCHARGE INSTRUCTIONS AND MEDICATIONS TO PT AND SHE REPORTS SHE UNDERSTANDS. IV REMOVED WITHOUT DIFFICULTY. [facility] ON [address] PER PT REQUEST. PT TRANSFERRED TO PRIVATE VEHICLE VIA WHEELCHAIR. BELONGINGS WITH PT.
== END 2018-10-16 14:00 | disposition home or self-care (01) ==
LOC: ER 22:19 → MEDS 22:20
PROVIDERS: Emergency Medicine; ADMIT Hospitalist
DX: R07.9 Chest pain, unspecified (principal); I48.0 Paroxysmal atrial fibrillation; C50.912 Malignant neoplasm of unspecified site of left female breast; I11.9 Hypertensive heart disease without heart failure; I35.0 Nonrheumatic aortic (valve) stenosis; G89.29 Other chronic pain; M54.9 Dorsalgia, unspecified; M19.90 Unspecified osteoarthritis, unspecified site; B37.0 Candidal stomatitis; K21.9 Gastro-esophageal reflux disease without esophagitis; Z88.1 Allergy status to other antibiotic agents; Z88.5 Allergy status to narcotic agent; Z88.8 Allergy status to other drugs, medicaments and biological substances; Z79.899 Other long term (current) drug therapy; Z98.890 Other specified postprocedural states
CPT/HCPCS: 36415; 71260; 80048; 80053; 83735; 84443; 84484; 85025; 85379; 85610; 85730; 93005; 93010; 93306; 96361-59; 96372; 96374-59; 96375-59; 96376-59; 99285-25; G0378; J0153; J1650; J2270; J7030; Q9967

== ENCOUNTER 2018-12-08 12:21 | Emergency (ER) | payer BC, OTHER ==
[~2018-12-08] VITALS: Ht 167.6 cm; Wt 86.2 kg
[~2018-12-08 12:21] MED LIST changes: +FLUC100 PO; +Lomotil Tablet1 EACH PO; +NYST100000 PO; +XYLOCAINE 2% VISCOUS PO
[2018-12-08 12:54] LABS: BASOPHILS ABSOLUTE AUTO 0.01 K/mm3 (0.00-0.23); BASOPHILS PERCENT AUTO 0 % (0-2); EOSINOPHILS ABSOLUTE AUTO 0.03 K/mm3 (0.00-0.68); EOSINOPHILS PERCENT AUTO 1 % (0-6); Hematocrit 28.4 % (33.0-51.0); Hemoglobin 9.6 g/dL (11.5-16.0); IMMATURE GRAN ABSOLUTE AUTO 0.02 K/mm3 (0.00-0.10); IMMATURE GRAN PERCENT AUTO 1 % (0-1); LYMPHOCYTES ABSOLUTE AUTO 0.63 K/mm3 (0.84-5.20); LYMPHOCYTES PERCENT AUTO 18 % (21-46); MONOCYTES ABSOLUTE AUTO 0.23 K/mm3 (0.16-1.47); MONOCYTES PERCENT AUTO 6 % (4-13); Mean Corpuscular HGB 39.7 pg (26.0-34.0); Mean Corpuscular HGB Conc 33.8 g/dL (31.5-36.5); Mean Platelet Volume 9.8 fL (9.1-12.4); NEUTROPHILS ABSOLUTE AUTO 2.66 K/mm3 (1.96-9.15); NEUTROPHILS PERCENT AUTO 74 % (41-73); NRBC ABSOLUTE 0.03 K/mm3 (0.00-0.02); NRBC Auto 0.8 /100 WBC (0.0-0.2); Platelet Count 223 K/mm3 (150-400); RDW Coefficient Variation 14.1 % (11.7-14.2); Red Blood Cell Count 2.42 M/mm3 (3.80-5.20); White Blood Cell Count 3.58 K/mm3 (4.00-11.30)
[2018-12-08 12:55] LABS: Mean Corpuscular Volume 117 fL (80-100)
[2018-12-08 13:19] LABS: Salicylate <1.7 mg/dL (2.8-20.0)
[2018-12-08 13:20] LABS: Alanine Aminotransfer (ALT/SGP 19 U/L (12-78); Albumin, Blood 3.2 g/dL (3.4-5.0); Albumin/Globulin Ratio 0.9 (0.8-1.8); Alk Phos 59 U/L (50-136); Anion Gap 13 mmol/L (6-16); Aspartate Aminotrans (AST/SGOT 21 U/L (12-37); Bilirubin, Total 0.7 mg/dL (0.1-1.0); Blood Urea Nitrogen 10 mg/dL (8-24); Bun/Creatinine Ratio 15.8 (12.0-20.0); CO2, Blood 18 mmol/L (21-32); Calcium, Blood 8.4 mg/dL (8.5-10.1); Chloride, Blood 107 mmol/L (98-108); Creatinine, Blood 0.63 mg/dL (0.40-1.00); Globulin, Blood 3.5 g/dL (2.2-4.0); Glomerular Filtration Rate >60 (60-); Glucose, Blood 124 mg/dL (70-99); Potassium, Blood 3.3 mmol/L (3.5-5.5); Sodium, Blood 138 mmol/L (136-145); Total Protein, Blood 6.7 g/dL (6.4-8.2)
[2018-12-08 13:23] LABS: Thyroid Stimulating Hormone 0.637 uIU/mL (0.360-4.800)
[2018-12-08 13:29] LABS: Ethanol (Alcohol), Blood, Med 327 mg/dL
[2018-12-08 13:33] LABS: Acetaminophen, Random <2.0 ug/mL (10.0-30.0)
[2018-12-08 14:11] LABS: Source, Urine Clean Catch
[2018-12-08 14:16] LABS: Bilirubin, Urine Neg (Neg); Blood, Urine Neg (Neg); Glucose Qualitative, Urine Neg (Neg); Ketones, Urine Neg (Neg); Leukocyte Esterase, Urine Neg (Neg); Nitrite, Urine Neg (Neg); Protein, Urine Neg (Neg); Specific Gravity, Urine 1.005 (1.003-1.022); Urobilinogen, Urine NORM (Normal); pH, Urine 6.5 (5.0-8.0)
[2018-12-08 14:28] LABS: Appearance, Urine Clear (Clear); Color, Urine Yellow (P-Yellow)
[2018-12-08 14:37] LABS: U Amphetamine Screen Not Detected; U Barbituate Screen Not Detected; U Benzodiazapine Screen DETECTED; U Buprenorphine Screen Not Detected; U Cannabinoids Screen Not Detected; U Cocaine Screen Not Detected; U Methadone Screen Not Detected; U Methamphetamine Screen Not Detected; U Opiates Screen Not Detected; U Oxycodone Screen Not Detected; U Phencyclidine Screen Not Detected; U Propoxyphene Screen Not Detected
== END 2018-12-08 15:56 | disposition home or self-care (01) ==
LOC: ER 12:21
PROVIDERS: Emergency Medicine
DX: F10.129 Alcohol abuse with intoxication, unspecified (principal); R41.82 Altered mental status, unspecified; Y90.8 Blood alcohol level of 240 mg/100 ml or more; Z88.8 Allergy status to other drugs, medicaments and biological substances; Z88.6 Allergy status to analgesic agent; Z88.1 Allergy status to other antibiotic agents; Z91.030 Bee allergy status; Z79.899 Other long term (current) drug therapy
CPT/HCPCS: 70450; 72125; 80053; 81003; 81025; 84443; 85025; 93005; 93010; 96374; 96375; 99285-25; G0480; J2310; J2405

== ENCOUNTER 2019-03-12 13:43 | Emergency (ER) | payer BC, OTHER ==
[~2019-03-12] VITALS: Ht 165.1 cm; Wt 88.9 kg
[2019-03-12 14:22] LABS: BASOPHILS ABSOLUTE AUTO 0.04 K/mm3 (0.00-0.23); BASOPHILS PERCENT AUTO 0 % (0-2); EOSINOPHILS ABSOLUTE AUTO 0.22 K/mm3 (0.00-0.68); EOSINOPHILS PERCENT AUTO 2 % (0-6); Hematocrit 39.4 % (33.0-51.0); Hemoglobin 12.9 g/dL (11.5-16.0); IMMATURE GRAN ABSOLUTE AUTO 0.03 K/mm3 (0.00-0.10); IMMATURE GRAN PERCENT AUTO 0 % (0-1); LYMPHOCYTES ABSOLUTE AUTO 2.31 K/mm3 (0.84-5.20); LYMPHOCYTES PERCENT AUTO 24 % (21-46); MONOCYTES ABSOLUTE AUTO 0.78 K/mm3 (0.16-1.47); MONOCYTES PERCENT AUTO 8 % (4-13); Mean Corpuscular HGB Conc 32.7 g/dL (31.5-36.5); Mean Corpuscular Volume 107 fL (80-100); Mean Platelet Volume 9.3 fL (9.1-12.4); NEUTROPHILS ABSOLUTE AUTO 6.31 K/mm3 (1.96-9.15); NEUTROPHILS PERCENT AUTO 65 % (41-73); Platelet Count 277 K/mm3 (150-400); RDW Coefficient Variation 13.2 % (11.7-14.2); RDW Standard Deviation 52.7 fL (35.1-46.3); Red Blood Cell Count 3.69 M/mm3 (3.80-5.20); White Blood Cell Count 9.69 K/mm3 (4.00-11.30)
[2019-03-12 14:41] LABS: Alanine Aminotransfer (ALT/SGP 20 U/L (12-78); Albumin, Blood 3.4 g/dL (3.4-5.0); Albumin/Globulin Ratio 0.9 (0.8-1.8); Alk Phos 114 U/L (50-136); Anion Gap 4 mmol/L (6-16); Aspartate Aminotrans (AST/SGOT 16 U/L (12-37); Bilirubin, Total 0.6 mg/dL (0.1-1.0); Blood Urea Nitrogen 16 mg/dL (8-24); Bun/Creatinine Ratio 27.4 (12.0-20.0); CO2, Blood 27 mmol/L (21-32); Calcium, Blood 9.5 mg/dL (8.5-10.1); Chloride, Blood 107 mmol/L (98-108); Creatinine, Blood 0.59 mg/dL (0.40-1.00); Globulin, Blood 3.7 g/dL (2.2-4.0); Glomerular Filtration Rate >60 (60-); Glucose, Blood 117 mg/dL (70-99); Potassium, Blood 3.7 mmol/L (3.5-5.5); Sodium, Blood 138 mmol/L (136-145); Total Protein, Blood 7.1 g/dL (6.4-8.2); Troponin I 0.027 ng/mL (0.000-0.040)
== END 2019-03-12 15:23 | disposition home or self-care (01) ==
LOC: ER 13:43
PROVIDERS: Physician Assistant
DX: R09.1 Pleurisy (principal); I10 Essential (primary) hypertension; I48.91 Unspecified atrial fibrillation; Z85.3 Personal history of malignant neoplasm of breast; Z88.1 Allergy status to other antibiotic agents; Z91.030 Bee allergy status; Z88.5 Allergy status to narcotic agent; Z88.8 Allergy status to other drugs, medicaments and biological substances; Z79.899 Other long term (current) drug therapy
CPT/HCPCS: 36415; 71260; 80053; 84484; 85025; 93005; 93010; 96374-59; 99284-25; J1170; Q9967

== ENCOUNTER 2019-06-26 19:45 | Inpatient (IN) | payer MEDICARE, BC, OTHER ==
[~2019-06-26] VITALS: Ht 165.1 cm; Wt 96.3 kg
[~2019-06-26 19:45] MED LIST changes: -GABA600 PO; +GABAPENTIN600 MG PO; -ONDA8 PO; -Omeprazole20 M1 PO; +Ondansetron Odt8 MG SL
[2019-06-26] MEDS ORDERED: ELIQUIS5 MG PO (20:13)
[2019-06-26 20:51] LABS: International Normalized Ratio 1.1; Prothrombin Time Results 11.7 Sec (9.7-11.5)
[2019-06-26 20:57] LABS: Troponin I 0.117 ng/mL (0.000-0.040)
[2019-06-26] MEDS ORDERED: Ventolin/Prove6.7 GM INH (20:57)
[2019-06-26] MEDS ORDERED: CYCL10 PO (20:57)
[2019-06-26] MEDS ORDERED: OXYC10TA19 PO (20:59)
[2019-06-26] MEDS ORDERED: Doxepin HCl10 MG PO (20:59)
[2019-06-26] MEDS ORDERED: ANAS1 PO (21:03)
[2019-06-26] MEDS ORDERED: D3-501250 MCG PO (21:04)
[2019-06-26 21:18] LABS: BASOPHILS ABSOLUTE AUTO 0.05 K/mm3 (0.00-0.23); BASOPHILS PERCENT AUTO 1 % (0-2); EOSINOPHILS ABSOLUTE AUTO 0.09 K/mm3 (0.00-0.68); EOSINOPHILS PERCENT AUTO 1 % (0-6); Hematocrit 41.3 % (33.0-51.0); Hemoglobin 13.6 g/dL (11.5-16.0); IMMATURE GRAN ABSOLUTE AUTO 0.02 K/mm3 (0.00-0.10); IMMATURE GRAN PERCENT AUTO 0 % (0-1); LYMPHOCYTES ABSOLUTE AUTO 1.25 K/mm3 (0.84-5.20); LYMPHOCYTES PERCENT AUTO 18 % (21-46); MONOCYTES ABSOLUTE AUTO 0.69 K/mm3 (0.16-1.47); MONOCYTES PERCENT AUTO 10 % (4-13); Mean Corpuscular HGB 35.6 pg (26.0-34.0); Mean Corpuscular HGB Conc 32.9 g/dL (31.5-36.5); Mean Corpuscular Volume 108 fL (80-100); NEUTROPHILS ABSOLUTE AUTO 4.71 K/mm3 (1.96-9.15); NEUTROPHILS PERCENT AUTO 69 % (41-73); Platelet Count 244 K/mm3 (150-400); RDW Coefficient Variation 15.2 % (11.7-14.2); RDW Standard Deviation 60.1 fL (35.1-46.3); Red Blood Cell Count 3.82 M/mm3 (3.80-5.20); White Blood Cell Count 6.81 K/mm3 (4.00-11.30)
[2019-06-26 21:27] LABS: Alanine Aminotransfer (ALT/SGP 32 U/L (12-78); Albumin, Blood 3.4 g/dL (3.4-5.0); Albumin/Globulin Ratio 0.9 (0.8-1.8); Alk Phos 187 U/L (50-136); Anion Gap 14 mmol/L (6-16); Aspartate Aminotrans (AST/SGOT 23 U/L (12-37); Bilirubin, Total 0.6 mg/dL (0.1-1.0); Blood Urea Nitrogen 12 mg/dL (8-24); Bun/Creatinine Ratio 15.9 (12.0-20.0); CO2, Blood 18 mmol/L (21-32); Calcium, Blood 8.9 mg/dL (8.5-10.1); Chloride, Blood 110 mmol/L (98-108); Creatinine, Blood 0.75 mg/dL (0.40-1.00); Globulin, Blood 3.6 g/dL (2.2-4.0); Glomerular Filtration Rate >60 (60-); Glucose, Blood 145 mg/dL (70-99); Potassium, Blood 3.5 mmol/L (3.5-5.5); Sodium, Blood 142 mmol/L (136-145)
[2019-06-27] MEDS ORDERED: ACET500 PO (02:05)
--- NOTE | 2019-06-27 02:25 | NUR ---
ASSUMED CARE OF PATIENT AT APPROXIMATELY 0200; CROSSBAR FRAME WIRER [place] Miller TOOK REPORT AND CARE OF PATIENT AT 0130. PATIENT ALERT AND ORIENTED X4; WEAKNESS AND SOB WITH AMBULATION. PATIENT REPORTS SHE FEELS BETTER COMPARED TO ARRIVAL TO ED. PATIENT REPORTS CHEST PRESSURE 4/10 MID CHEST; NO RADIATION ANYWHERE. PATIENT REPORTS IMPROVED SINCE IN ED; REPORTS JUST TOOK OXYCODONE BEFORE ADMIT. PATIENT REPORTS CHRONIC NUMBNESS IN FINGERS FROM CHEMO. PATIENT DENIES TINGLING, DIZZINESS AND NAUSEA. SR/ST WITH POSSIBLE FLUTTER AT TIMES ON TELE; OXYGEN SATURATION ABOVE 90% ON ROOM AIR. CARDIZEM AT 10ML/HR. ADMISSION COMPLETE. PATIENT CURRENTLY RESTING IN BED; CALL LIGHT IN REACH; BED IN LOWEST POSISTION; BED ALARM ON; WILL CONTINUE TO MONITOR AND ASSESS UNTIL END OF SHIFT.
[2019-06-27 03:03] LABS: Anion Gap 6 mmol/L (6-16); Blood Urea Nitrogen 11 mg/dL (8-24); Bun/Creatinine Ratio 16.4 (12.0-20.0); CO2, Blood 25 mmol/L (21-32); Calcium, Blood 8.8 mg/dL (8.5-10.1); Chloride, Blood 110 mmol/L (98-108); Creatinine, Blood 0.67 mg/dL (0.40-1.00); Glomerular Filtration Rate >60 (60-); Glucose, Blood 130 mg/dL (70-99); Potassium, Blood 4.1 mmol/L (3.5-5.5); Sodium, Blood 141 mmol/L (136-145); Troponin I 0.109 ng/mL (0.000-0.040)
--- NOTE | 2019-06-27 03:15 | NUR ---
CALLED DR. HENDERSON TO REPORT PATIENT HAS BEEN SR/ST; CARDZIEM GTT HAS BEEN TURNED OFF; EKG DONE BY AFTAB SERRANO CN SHOWS SR. PATIENT ALSO REQUESTED MEDICAION FOR COUGH. ORDERS TO RESTART HOME DOSE OF METOPROLOL AND DR. HENDERSON WILL PUT ORDERS IN FOR COUGH. WILL CONTINUE TO MONITOR AND ASSESS UNTIL END OF SHIFT.
--- NOTE | 2019-06-27 03:20 | NUR ---
CALLED ER TO REPORT 4 MEDICATIONS PULLED ON OVERRIDE AND OVERDUE; SPOKE TO GAEL; WILL PASS ONTO ER BUILDING COORDINATOR
--- NOTE | 2019-06-27 05:24 | NUR ---
PATIENT REPORTS CHEST PAIN DOWN FROM 4 TO A 3 WITH NO INTERVENTIONS. REQUESTED PRN PAIN MEDICATIONS FOR LEFT KNEE PAIN THAT IS CHRONIC.
--- NOTE | 2019-06-27 16:08 | NUR ---
Spiritual care visit conducted. Patient is lying in bed and alert. Patient shares about her medical history, her family history and her amish background. Patient expresses her desire to be around for a while and shares her concerns with all she has been through. I listen empathically, conduct a life review, explore spiritual beliefs and provide pastoral correctional classification counselor and prayer. Patient responds well and shows signs of improved hope. I will continue to remain available to patient and family.
--- NOTE | 2019-06-27 17:40 | NUR ---
SHIFT NOTE PT RESTING WELL IN BED T/O THE DAY. PT INDEPENDANT UP TO BSC. PT DID REPORTS KNEE PAIN THIS AFTERNNON WHICH SHE WAS TREATED WITH OXYCODONE FOR PAIN WHICH WAS TOLERATED WELL. DOSAGE CHANGE OF METOPOROL AND LASIX ORDERED, WHICH WERE ADMINISTERED ACCORDINGLY. PT OTHERWISE IS ALERT, SLIGHTLY FORGETFULL AT TIMES OF HER OWN HEALTH HX WHICH SHE CONTRIBUTES TO "CANCER BRAIN", PT IS OTHERWISE APPROPRIATE AND USES CALL LIGHT NEEDED
--- NOTE | 2019-06-27 21:47 | NUR ---
FLAG SIGNALER MISTI REPORTS PATIENT AFIB 139. WAS NSR 90 AT SHIFT CHANGE. PO TOPROL 75 MG GIVEN AT 20:58. WILL CONTINUE TO MONITOR.
--- NOTE | 2019-06-27 22:16 | NUR ---
PRN LOPRESSOR 25 MG GIVEN FOR HR >110. [employer] (T/A) REPORTS AFIB 140. NATURAL GAS BASIS TRADERMARIANO STREETER REPORTED TO GIVE PRN LOPRESSOR. WILL CONTINUE TO MONITOR.
--- NOTE | 2019-06-27 23:04 | NUR ---
NANOTECHNICIAN MISTI REPORTS AFIB 160-170 AND THAN PATIENT CONVERTED TO ST 109. WILL CONTINUE TO MONITOR.
--- NOTE | 2019-06-28 04:53 | NUR ---
INBOUND TELEMARKETER REPORTS NSR 86. WILL CONTINUE TO MONITOR.
--- NOTE | 2019-06-28 04:55 | NUR ---
SHIFT SUMMARY PATIENT HAD MULTIPLE TELEMETRY EVENTS. STARTED OUT AT NSR 90 AT SHIFT CHANGE AND CONVERTED TO AFIB 139 FOLLOWED BY AFIB 160-170. PO LOPRESSOR 75 MG XL HAD BEEN GIVEN AND ANOTHER PRN 25 MG LOPRESSOR GIVEN PER EMAR.PATIENT CONVERTED TO ST 109 AND CURRENTLY NSR 86. AXOX 4 AND SBA TO BR. PIV REMAINS INTACT. REPORTED BILATERAL KNEE PAIN AND 10 MG OXYCODONE GIVEN PER EMAR. PATIENT REQUESTED AMBIEN 5 MG AND HOSPITALIST [employer] APPEALS REPRESENTATIVE ORDERED IT X ONE FOR INSOMNIA. DENIES SOB AND N/V. SPOUSE PRESENT FIRST FEW HOURS OF SHIFT. COOPERATIVE WITH CARE. CALL LIGHT IN REACH. BED IN LOWEST POSITION. WILL CONTINUE TO MONITOR UNTIL DAY SHIFT NURSE ASSUMES CARE.
[2019-06-28 06:03] LABS: Anion Gap 7 mmol/L (6-16); Blood Urea Nitrogen 17 mg/dL (8-24); Bun/Creatinine Ratio 24.8 (12.0-20.0); CO2, Blood 25 mmol/L (21-32); Chloride, Blood 105 mmol/L (98-108); Creatinine, Blood 0.69 mg/dL (0.40-1.00); Glomerular Filtration Rate >60 (60-); Glucose, Blood 126 mg/dL (70-99); Potassium, Blood 4.1 mmol/L (3.5-5.5); Sodium, Blood 137 mmol/L (136-145)
[2019-06-28] MEDS ORDERED: BENZ100A PO (09:43)
[2019-06-28] MEDS ORDERED: ANAS1 PO (09:43)
[2019-06-28] MEDS ORDERED: FURO40 PO (09:44)
[2019-06-28] MEDS ORDERED: METO25 PO (09:46)
[2019-06-28] MEDS ORDERED: POTA10T PO (09:46)
[2019-06-28] MEDS ORDERED: METO100ER PO (09:47)
--- NOTE | 2019-06-28 11:20 | NUR ---
PT D/C WITH ALL BELONGINGS WITH HER, EXPRESSED UNDERSTANDING OF DC TEACHING DENIES FURHTER NEEDS, REPORTS UNDERSTANDING OF MEDICATIONS
== END 2019-06-28 11:14 | disposition home or self-care (01) | DRG 280 ==
LOC: ER 19:45 → ERHOLD 21:39 → PCU 21:39
PROVIDERS: Emergency Medicine; Internal Medicine; Physician Assistant; ADMIT Hospitalist
DX: I48.0 Paroxysmal atrial fibrillation (principal); I50.41 Acute combined systolic (congestive) and diastolic (congestive) heart failure; I21.A1 Myocardial infarction type 2; K21.9 Gastro-esophageal reflux disease without esophagitis; C50.912 Malignant neoplasm of unspecified site of left female breast; I08.3 Combined rheumatic disorders of mitral, aortic and tricuspid valves; Z92.21 Personal history of antineoplastic chemotherapy; Z92.3 Personal history of irradiation
CPT/HCPCS: 36415; 71045; 80048; 80053; 83735; 83880; 84443; 84484; 85025; 85610; 93005; 93010; 93306; 94640; 96365; 96366; 96375; 96376; 99285-25; A9270-GY; J1940; J2270; J2405; J3010; J7030

== ENCOUNTER 2019-07-12 14:36 | Inpatient (IN) | payer MEDICARE, BC, OTHER ==
[~2019-07-12] VITALS: Ht 167.6 cm; Wt 98.7 kg
[~2019-07-12 14:36] MED LIST changes: +ACET500 PO; +ANAS1 PO; +BENZ100A PO; +D3-501250 MCG PO; +Doxepin HCl10 MG PO; +FURO40 PO; +METO25 PO; +METO50ER PO; +OXYC10TA19 PO; -Ondansetron Odt8 MG SL; +POTCHL20ER PO; +Ventolin/Prove6.7 GM INH
[2019-07-12 16:00] LABS: BASOPHILS ABSOLUTE AUTO 0.05 K/mm3 (0.00-0.23); BASOPHILS PERCENT AUTO 1 % (0-2); EOSINOPHILS PERCENT AUTO 1 % (0-6); Hematocrit 42.9 % (33.0-51.0); IMMATURE GRAN ABSOLUTE AUTO 0.02 K/mm3 (0.00-0.10); IMMATURE GRAN PERCENT AUTO 0 % (0-1); LYMPHOCYTES ABSOLUTE AUTO 1.09 K/mm3 (0.84-5.20); LYMPHOCYTES PERCENT AUTO 15 % (21-46); MONOCYTES ABSOLUTE AUTO 0.93 K/mm3 (0.16-1.47); MONOCYTES PERCENT AUTO 13 % (4-13); Mean Corpuscular HGB 34.5 pg (26.0-34.0); Mean Corpuscular HGB Conc 32.6 g/dL (31.5-36.5); Mean Corpuscular Volume 106 fL (80-100); Mean Platelet Volume 9.4 fL (9.1-12.4); NEUTROPHILS ABSOLUTE AUTO 4.96 K/mm3 (1.96-9.15); NEUTROPHILS PERCENT AUTO 69 % (41-73); Platelet Count 215 K/mm3 (150-400); RDW Coefficient Variation 13.9 % (11.7-14.2); RDW Standard Deviation 54.4 fL (35.1-46.3); Red Blood Cell Count 4.06 M/mm3 (3.80-5.20); White Blood Cell Count 7.15 K/mm3 (4.00-11.30)
[2019-07-12 16:14] LABS: Alanine Aminotransfer (ALT/SGP 37 U/L (12-78); Albumin, Blood 3.5 g/dL (3.4-5.0); Albumin/Globulin Ratio 1.1 (0.8-1.8); Alk Phos 142 U/L (50-136); Anion Gap 7 mmol/L (6-16); Aspartate Aminotrans (AST/SGOT 27 U/L (12-37); Bilirubin, Total 1.4 mg/dL (0.1-1.0); Blood Urea Nitrogen 19 mg/dL (8-24); Bun/Creatinine Ratio 26.4 (12.0-20.0); CO2, Blood 29 mmol/L (21-32); Calcium, Blood 9.1 mg/dL (8.5-10.1); Chloride, Blood 100 mmol/L (98-108); Creatinine, Blood 0.72 mg/dL (0.40-1.00); Globulin, Blood 3.3 g/dL (2.2-4.0); Glomerular Filtration Rate >60 (60-); Glucose, Blood 124 mg/dL (70-99); Potassium, Blood 3.5 mmol/L (3.5-5.5); Sodium, Blood 136 mmol/L (136-145); Total Protein, Blood 6.8 g/dL (6.4-8.2); Troponin I 0.034 ng/mL (0.000-0.040)
[2019-07-12 17:52] LABS: Free Thyroxine 1.21 ng/dL (0.70-1.60)
[2019-07-12 17:53] LABS: Thyroid Stimulating Hormone 4.23 uIU/mL (0.360-4.800)
[2019-07-12] MEDS ORDERED: Pacerone400 MG PO (19:07)
[2019-07-12] MEDS ORDERED: AMBIEN5 MG PO (19:09)
[2019-07-13 05:34] LABS: BASOPHILS ABSOLUTE AUTO 0.06 K/mm3 (0.00-0.23); BASOPHILS PERCENT AUTO 1 % (0-2); EOSINOPHILS ABSOLUTE AUTO 0.22 K/mm3 (0.00-0.68); EOSINOPHILS PERCENT AUTO 4 % (0-6); Hemoglobin 12.5 g/dL (11.5-16.0); IMMATURE GRAN ABSOLUTE AUTO 0.01 K/mm3 (0.00-0.10); IMMATURE GRAN PERCENT AUTO 0 % (0-1); LYMPHOCYTES ABSOLUTE AUTO 0.96 K/mm3 (0.84-5.20); LYMPHOCYTES PERCENT AUTO 19 % (21-46); MONOCYTES ABSOLUTE AUTO 0.88 K/mm3 (0.16-1.47); MONOCYTES PERCENT AUTO 18 % (4-13); Mean Corpuscular HGB 34.1 pg (26.0-34.0); Mean Corpuscular HGB Conc 32.1 g/dL (31.5-36.5); Mean Corpuscular Volume 106 fL (80-100); Mean Platelet Volume 9.9 fL (9.1-12.4); NEUTROPHILS ABSOLUTE AUTO 2.82 K/mm3 (1.96-9.15); NEUTROPHILS PERCENT AUTO 57 % (41-73); Platelet Count 198 K/mm3 (150-400); RDW Coefficient Variation 13.8 % (11.7-14.2); RDW Standard Deviation 54.9 fL (35.1-46.3); Red Blood Cell Count 3.67 M/mm3 (3.80-5.20); White Blood Cell Count 4.95 K/mm3 (4.00-11.30)
[2019-07-13 06:09] LABS: Anion Gap 7 mmol/L (6-16); Blood Urea Nitrogen 18 mg/dL (8-24); CO2, Blood 30 mmol/L (21-32); Calcium, Blood 8.7 mg/dL (8.5-10.1); Chloride, Blood 103 mmol/L (98-108); Creatinine, Blood 0.78 mg/dL (0.40-1.00); Glomerular Filtration Rate >60 (60-); Glucose, Blood 116 mg/dL (70-99); Potassium, Blood 2.8 mmol/L (3.5-5.5); Sodium, Blood 140 mmol/L (136-145)
--- NOTE | 2019-07-13 18:23 | NUR ---
PT D/O DIAPHORESIS, CHEST PAIN /10, AND SHOB. B/P NOTED LOW 87/[address] LEZAMA CALLED AND NEW ORDER REC'D. BLOOD PRESSURE CONTINUES TO DROP.
--- NOTE | 2019-07-13 18:30 | NUR ---
pt states that diaphoresis and shortness of breath had started in the ED. Per Blessing Rosenberg, pt had low blood pressure in the Ed. pt states that the right side chest pain, which she states is now a sharp pain, started once she came up to PCU. She is breathing at 20 breaths/minute,. lying down, without use of accessory muscles or obvious difficulty. States diaphoresis is gone, but still feels short of breath. Blood pressure still low, with NS infusing at wide open. She is also receiving amiodarone drip. Dr. Fonseca states she will be here to see the pt shortly.
--- NOTE | 2019-07-13 18:33 | NUR ---
States pain is 7/10, the same level of pain since she arrived. Appears without distress or anxiety at this time. Respirations even, unlabored, and sinus rhythm in the 70s per patient monitor tech.
--- NOTE | 2019-07-13 18:51 | NUR ---
PT PRESSURE IS IN THE LOW 70'S, ONE READING 65 SYSTOLIC, IN TOUCH WITH DR. LEZAMA, WILL BE MOVING PT TO ICU, BOLUS WILL CONTINUE.
--- NOTE | 2019-07-13 18:51 | NUR ---
Call to the pt s Arsh to let him know that the pt will be transferring to ICU 10 shortly. Pt reports that her chest pain is sharp, 6/10 on the right side. Respiratory effort and rate are unchanged from earlier.
--- NOTE | 2019-07-13 19:53 | NUR ---
in to see pt. new orders recieved, will move pt to icu, report given to Alan QUINTANA. taken to icu via bed.
--- NOTE | 2019-07-13 21:19 | NUR ---
ASSUMED CARE PT ARRIVED TO ICU 10 AT 1945. PT IS AWAKE, ALERT, AND ORIENTED. PT IS DIAPHORETIC AND COMPLAINING OF CHEST PAIN THAT RADIATES TO RIGHT SHOULDER. PT IS COMPLAINING OF SOB. SPO2 >94% ON 2L NC. HR 70'S NSR. UNABLE TO OBTAIN BP AT TIME OF ARRIVAL WITH NIBP AND MANUAL. DR LEZAMA IN ROOM AT TIME OF ARRIVAL. STAT CT CHEST ORDERED. PT MED WITH 0.5MG MORPHINE IV PRIOR TO BEING TAKEN TO CT. PT TOLERATED CT WELL. UPON RETURN TO ICU, BP VIA DOPPLER ON BOTH RIGHT AND LEFT ARM'S IS 70/D. DR LEZAMA UPDATED TO BP'S AND CT RESULTS. ORDERS RECIEVED TO DC AMIO GTT AND START LOW DOSE LEVOPHED VIA PERIPHERAL IV TO KEEP SBP GREATER THAN 90. PT REMAINS NSR 70'S. IV KCL INFUSING AT THIS TIME. PT COLOR HAS IMPROVED AND PT DOES NOT APPEAR TO BE IN ANY DISTRESS. NO FAMILY AT BEDSIDE. WILL CONTINUE TO MONITOR.
--- NOTE | 2019-07-13 22:58 | NUR ---
DOPPLER BP LEVOPHED INCREASED TO 8 MCG/MIN, BP 83/ DOPPLER.
--- NOTE | 2019-07-13 23:30 | NUR ---
DR CROUCH CONSULT PT CONTINUES TO HAVE HYPOTENSION WITH DOPPLER BP'S IN THE 70'S. LEVOPHED AT 8 MCG/MIN THROUGH RIGHT HAND PERIPHERAL IV. DR CROUCH CALLED AND STATES SHE WILL COME IN TO SEE THE PT TONIGHT.
[2019-07-14 04:19] LABS: BASOPHILS ABSOLUTE AUTO 0.02 K/mm3 (0.00-0.23); BASOPHILS PERCENT AUTO 0 % (0-2); EOSINOPHILS ABSOLUTE AUTO 0.01 K/mm3 (0.00-0.68); EOSINOPHILS PERCENT AUTO 0 % (0-6); Hematocrit 49.3 % (33.0-51.0); Hemoglobin 15.3 g/dL (11.5-16.0); IMMATURE GRAN ABSOLUTE AUTO 0.11 K/mm3 (0.00-0.10); IMMATURE GRAN PERCENT AUTO 1 % (0-1); LYMPHOCYTES ABSOLUTE AUTO 0.92 K/mm3 (0.84-5.20); LYMPHOCYTES PERCENT AUTO 12 % (21-46); MONOCYTES ABSOLUTE AUTO 0.67 K/mm3 (0.16-1.47); MONOCYTES PERCENT AUTO 9 % (4-13); Mean Corpuscular HGB 33.8 pg (26.0-34.0); Mean Platelet Volume 9.5 fL (9.1-12.4); NEUTROPHILS ABSOLUTE AUTO 6.15 K/mm3 (1.96-9.15); NEUTROPHILS PERCENT AUTO 78 % (41-73); NRBC ABSOLUTE 0.02 K/mm3 (0.00-0.02); NRBC Auto 0.3 /100 WBC (0.0-0.2); Platelet Count 218 K/mm3 (150-400); RDW Coefficient Variation 14.6 % (11.7-14.2); RDW Standard Deviation 60.1 fL (35.1-46.3); Red Blood Cell Count 4.52 M/mm3 (3.80-5.20); White Blood Cell Count 7.88 K/mm3 (4.00-11.30)
[2019-07-14 04:25] LABS: Mean Corpuscular Volume 109 fL (80-100)
[2019-07-14 04:40] LABS: Troponin I 0.04 ng/mL (0.000-0.040)
[2019-07-14 04:42] LABS: Bun/Creatinine Ratio 14.1 (12.0-20.0); Calcium, Blood 8.7 mg/dL (8.5-10.1); Creatinine, Blood 1.63 mg/dL (0.40-1.00)
[2019-07-14 04:46] LABS: Potassium, Blood 5.3 mmol/L (3.5-5.5)
--- NOTE | 2019-07-14 06:14 | NUR ---
SHIFT SUMMARY PT HAS REMAINED ALERT AND ORIENTED THROUGHOUT THE SHIFT. DR CROUCH AND DR LEZAMA MADE MULTIPLE VISITS THROUGHOUT THE NIGHT TO SEE PT. CENTRAL LINE PLACED TO RIGHT IJ, AND LEVOPHED INFUSING AT 10 MCG/MIN. UNABLE TO OBTAIN NIBP OR MANUAL BP'S THROUHOUT THE NIGHT DESPITE DIFFERENT BP CUFFS AND POSITIONS. DOPPLER BP'S HAVE REMAINED 80-100'S. DR CROUCH AND LISE ARE AWARE. PT CONTINUES TO HAVE PAIN TO RIGHT SHOULDER/CHEST. PT MED PER EMAR. PT TAKING PO FLUIDS WELL. PT COMPLAINS OF DRY MOUTH. PT WITH ONE VOID ON BEDPAN THIS SHIFT. HR HAS REMAINED NSR 60-70'S. PT ON 2L O2 NC. NO FAMILY AT BEDSIDE AT THIS TIME. WILL CONTINUE TO MONITOR AND REPORT OFF TO ONCOMING RN.
--- NOTE | 2019-07-14 08:30 | NUR ---
ASSESSMENT- PT AWAKE, ALERT, COOPERATIVE. C/O GENERALIZED PAIN AND DISCOMFORT. STATES HAD SOME DIAPHORESIS. SKIN COOL, COLD LEFT ARM AND HAND. RADIAL PULSES FAINT, HAVE BEEN UNABLE TO OBTAIN MONITOR BP, NOW ONE BP READABLE, THEN READING ONLY MEAN PRESSURE. LEVOPHED GTT AT 10 MCG/MIN VIA RIJ CENTRAL LINE, DI. LUNGS CLEAR, NO SOB AT REST BUT STATES BECOMES VERY DYSPNEIC WITH ANY ACTIVITY. NO N/V. FEET COOL, STATES HAS NEUROPHATHY.
[2019-07-14 08:42] LABS: Source, Urine Catheter
[2019-07-14 09:03] LABS: Bilirubin, Urine Neg (Neg); Blood, Urine Neg (Neg); Glucose Qualitative, Urine Neg (Neg); Ketones, Urine Neg (Neg); Leukocyte Esterase, Urine Neg (Neg); Nitrite, Urine Neg (Neg); Protein, Urine 1+ (Neg); Urobilinogen, Urine NORM (Normal); pH, Urine 6.5 (5.0-8.0)
--- NOTE | 2019-07-14 09:06 | NUR ---
DR. LEZAMA HERE-UDPATED. ASSESSED PT. PT TOLERATED TURNING FOR LINEN CHANGE-C/O SOB WITH ANY MOVEMENT. COLOR PALE, NSR. STILL DOPPLE BP. C/O ACHE RIGHT NECK TO JAW. RHYTHM UNCHANGED. CLEANING PLACED FOR INCREASED WOB WITH ANY ACTIVITY AND TO MONITOR UO. UA SENT.
[2019-07-14 09:21] LABS: Appearance, Urine Clear (Clear); Color, Urine Yellow (P-Yellow)
--- NOTE | 2019-07-14 11:28 | NUR ---
PT RESTING IN BED VISITING WITH FAMILY. NO DISTRESS. BP READING FROM MONITOR
--- NOTE | 2019-07-14 12:21 | NUR ---
PT TAKING CLEAR LIQUIDS. BP STABLE, LEVOPHED OFF. ENCOURAGED TO REST. UO LOW
--- NOTE | 2019-07-14 13:06 | NUR ---
PHYSICIAN VISIT- DR. CROUCH HERE-UPDATED WITH URINE OUTPUT, VS, LABS. LEVOPHED REMAINS OFF.
--- NOTE | 2019-07-14 14:11 | NUR ---
PT HAS BEEN ABLE TO SLEEP WITHOUT COMPLAINTS. VS STABLE. MAINTAINING SATURATIONS WITH NASAL CANNULA 1 L/MIN. LEVOPHED REMAINS OFF. HANDS WARM, FEET COOL. CONTINUE TO MONITOR. NS STARTED AT 100 CC/HR
--- NOTE | 2019-07-14 16:16 | NUR ---
PHYSICIAN- DR. LEZAMA HERE AND UPDATED. NS HAS BEEN STARTED. HEPARIN GTT TO START AT 1800. VSS. PT ABLE TO SLEEP WITHOUT COMPLAINTS
--- NOTE | 2019-07-14 18:17 | NUR ---
PT WITH STABLE VS. WAS ABLE TO TAKE NAP AND STATES FEELS BETTER. LESS SOB WITH MOVEMENT. UO LOW BUT IMPROVING. HEPARIN GTT STARTED PER ORDERS. REMAINS SR. ANASARCA, FEET SWOLLEN TO KNEES. LEFT FOOT COOL BUT RIGHT FOOT WARM. RADIAL PULSES, PT PULSES PALPABLE.
--- NOTE | 2019-07-14 18:52 | NUR ---
DR. LEZAMA, DR. AVILA HERE. PLANS FOR TRANSFER TO [facility]. PT AGREEABLE.
--- NOTE | 2019-07-14 19:20 | NUR ---
ASSUMED CARE BEDSIDE REPORT RECIEVED. PT IS AWAKE, ALERT, AND ORIENTED. PT EXPRESSED CONCERN/ANXEITY ABOUT TRANSFER TO [facility]. PT AND FAMILY REASSURED AND EDUCATED ABOUT NEED FOR TRANSFER AND CURRENT ILLNESS. VITAL SIGNS STABLE AT THIS TIME. PT ON 1L O2 NC. CL TO RIJ C/D/I, HEPARIN INFUSING AT 13 UNITS/KG/HR AND NS AT 100 ML/HR. PT TAKING PO FLUID INTAKE WELL. CLEANING IN PLACE WITH YELLOW OUTPUT NOTED. PT SKIN COLOR PINK/PALE AND WARM. WILL CONTINUE TO MONITOR.
--- NOTE | 2019-07-15 00:01 | NUR ---
TRANSFER TO [facility] REPORT CALLED TO MARIANO SWANN AT [facility]. ALL QUESTIONS ANSWERED. PT AND FAMILY UPDATED. BELONGING TO BE TAKEN WITH PT. PT IS ALERT, ORIENTED AND VITAL SIGNS STABLE. PT ANXIOUS AT THIS TIME. PT PROVIDED WITH REASSURANCE. NS INFUSING AT 100 ML/HR AND HEPARIN GTT INFUSING AT 13 UNIT/KG/HR. CLEANING IN PLACE.
[2019-08-10] MEDS ORDERED: LANOXIN125 MCG PO (17:05)
[2019-08-10] MEDS ORDERED: ATOR80 PO (17:05)
[2019-08-10] MEDS ORDERED: CLOP75 PO (17:05)
[2019-08-10] MEDS ORDERED: DOCU100 PO ×2 (17:05→19:05)
[2019-08-10] MEDS ORDERED: TUMS500 MG PO (17:06)
[2019-08-10] MEDS ORDERED: MAGNESIUM OXID500 MG PO (17:06)
[2019-08-10] MEDS ORDERED: GUAI600T33 PO (17:06)
[2019-08-10] MEDS ORDERED: BENZ100A PO (17:06)
[2019-08-10] MEDS ORDERED: MIRALAX17 GM PO (17:07)
[2019-08-10] MEDS ORDERED: NITR.4SL SL (17:07)
[2019-08-10] MEDS ORDERED: METO25 PO (18:56)
[2019-08-10] MEDS ORDERED: LISI5 PO (18:56)
[2019-08-14] MEDS ORDERED: PANT20 PO (11:24)
== END 2019-07-15 00:50 | disposition short-term general hospital (02) | DRG 306 ==
LOC: ER 14:36 → ERHOLD 17:21 → ICUW 17:21 → PCU 07-13 18:10 → ICUW 07-13 19:45
PROVIDERS: Emergency Medicine; Internal Medicine Cardiovascular Disease; ADMIT Hospitalist
PROC: 3E043XZ Introduction of Vasopressor into Central Vein, Percutaneous Approach (ICD-10-PCS; principal; 2019-07-14)
PROC: 05HM33Z Insertion of Infusion Device into Right Internal Jugular Vein, Percutaneous Approach (ICD-10-PCS; 2019-07-14)
DX: I08.3 Combined rheumatic disorders of mitral, aortic and tricuspid valves (principal); I50.33 Acute on chronic diastolic (congestive) heart failure; R57.0 Cardiogenic shock; N17.0 Acute kidney failure with tubular necrosis; E27.49 Other adrenocortical insufficiency; I48.91 Unspecified atrial fibrillation; C50.912 Malignant neoplasm of unspecified site of left female breast; E87.6 Hypokalemia; I27.20 Pulmonary hypertension, unspecified
CPT/HCPCS: 36415; 36556; 71045; 71275; 80048; 80053; 80400; 82533; 82947; 83880; 84439; 84443; 84484; 85025; 85730; 87040; 92960; 93005; 93010; 93306; 96374-59; 96375-59; 96376-59; 99285-25; C1751; J0282; J0461; J0696; J0834; J1100; J1644; J1720; J1940; J2270; J2543; J2704; J3480; J7030; J7040; J7050; J7060; Q9967

== ENCOUNTER 2019-10-03 15:57 | Observation (INO) | payer BC, OTHER ==
[~2019-10-03] VITALS: Ht 167.6 cm; Wt 91.3 kg
[~2019-10-03 15:57] MED LIST changes: +AMBIEN5 MG PO; +AMIODARONE HCL200 M1 PO; +ATOR80 PO; +CLOP75 PO; +DOCU100 PO; -GABAPENTIN600 MG PO; +GUAI600T33 PO; +LANOXIN125 MCG PO; +LISI5 PO; +MAGNESIUM OXID500 MG PO; +MIRALAX17 GM PO; +NITR.4SL SL; +PANT20 PO; +TUMS500 MG PO
[2019-10-03 16:30] LABS: BASOPHILS ABSOLUTE AUTO 0.05 K/mm3 (0.00-0.23); BASOPHILS PERCENT AUTO 1 % (0-2); EOSINOPHILS ABSOLUTE AUTO 0.36 K/mm3 (0.00-0.68); EOSINOPHILS PERCENT AUTO 6 % (0-6); Hematocrit 38.7 % (33.0-51.0); Hemoglobin 13.2 g/dL (11.5-16.0); IMMATURE GRAN ABSOLUTE AUTO 0.02 K/mm3 (0.00-0.10); IMMATURE GRAN PERCENT AUTO 0 % (0-1); LYMPHOCYTES PERCENT AUTO 27 % (21-46); MONOCYTES ABSOLUTE AUTO 0.72 K/mm3 (0.16-1.47); MONOCYTES PERCENT AUTO 11 % (4-13); Mean Corpuscular HGB 34.4 pg (26.0-34.0); Mean Corpuscular HGB Conc 34.1 g/dL (31.5-36.5); Mean Corpuscular Volume 101 fL (80-100); Mean Platelet Volume 9.4 fL (9.1-12.4); NEUTROPHILS ABSOLUTE AUTO 3.45 K/mm3 (1.96-9.15); NEUTROPHILS PERCENT AUTO 55 % (41-73); Platelet Count 231 K/mm3 (150-400); RDW Coefficient Variation 13.1 % (11.7-14.2); RDW Standard Deviation 47.7 fL (35.1-46.3); Red Blood Cell Count 3.84 M/mm3 (3.80-5.20)
[2019-10-03 16:49] LABS: Alanine Aminotransfer (ALT/SGP 29 U/L (12-78); Albumin, Blood 3.9 g/dL (3.4-5.0); Alk Phos 127 U/L (50-136); Anion Gap 5 mmol/L (6-16); Aspartate Aminotrans (AST/SGOT 38 U/L (12-37); Bilirubin, Total 0.9 mg/dL (0.1-1.0); Blood Urea Nitrogen 11 mg/dL (8-24); CO2, Blood 30 mmol/L (21-32); Calcium, Blood 9.5 mg/dL (8.5-10.1); Chloride, Blood 100 mmol/L (98-108); Creatinine, Blood 0.65 mg/dL (0.40-1.00); Globulin, Blood 3.9 g/dL (2.2-4.0); Glomerular Filtration Rate >60 (60-); Glucose, Blood 162 mg/dL (70-99); Potassium, Blood 4.2 mmol/L (3.5-5.5); Sodium, Blood 135 mmol/L (136-145); Total Protein, Blood 7.8 g/dL (6.4-8.2); Troponin I 0.026 ng/mL (0.000-0.040)
[2019-10-03] MEDS ORDERED: OMEP20ER PO (16:50)
[2019-10-03] MEDS ORDERED: METO50 PO (23:00)
--- NOTE | 2019-10-04 07:26 | NUR ---
PROFESSOR OF BUSINESS SUMMARY PT ARRIVED TO UNIT AT 2127 VIA STRETCHER. A/O X4. INTRODUCTED TO STAFF AND ROOM. TELE APPLIED. PT STATES CHEST 3/10 "SQUEEZING" PAIN, PT STATES PAIN TOLERALE. PAIN DOES NOT RADIATE AND THERE IS PAIN AT REST. PT EDUCATED TROPONINS WERE WNL AND CHEST XAY WAS INSIGNIFICANT. PT STATES CHEST PAIN HAS DECREASED TO A 2/10 THIS MORNING. 1 ASSIST WITH FWW. MEDICATED FOR ARTHRITIC PAIN ONCE TONIGHT. REPORT GIVEN TO AM NURSE. PLEASANT AND COOPERATIVE.
--- NOTE | 2019-10-04 11:40 | NUR ---
PATIENT DISCHARGED TO HOME, TAKEN OUT TO MEET HER SPOUSE VIA W/C. IV REMOVED WITHOUT INCIDENT. HAS ALL BELONGINGS.
== END 2019-10-04 11:36 | disposition home or self-care (01) ==
LOC: ER 15:57 → MEDS 15:58 → ENPENDDIS 10-04 10:41 → MEDS 10-04 11:36
PROVIDERS: Physician Assistant; ADMIT Internal Medicine
DX: R07.89 Other chest pain (principal); I25.10 Atherosclerotic heart disease of native coronary artery without angina pectoris; I63.9 Cerebral infarction, unspecified; I50.32 Chronic diastolic (congestive) heart failure; I25.2 Old myocardial infarction; K21.9 Gastro-esophageal reflux disease without esophagitis; Z95.2 Presence of prosthetic heart valve; Z88.5 Allergy status to narcotic agent; Z88.1 Allergy status to other antibiotic agents; Z91.038 Other insect allergy status; Z88.8 Allergy status to other drugs, medicaments and biological substances; Z79.01 Long term (current) use of anticoagulants; Z79.899 Other long term (current) drug therapy; Z79.02 Long term (current) use of antithrombotics/antiplatelets
CPT/HCPCS: 36415; 71046; 80053; 83880; 84484; 85025; 93005; 93010; 94760; 96374; 99285-25; A9270-GY; G0378; J2270

== ENCOUNTER 2019-10-19 14:40 | Inpatient (IN) | payer MEDICARE, BC, OTHER ==
[~2019-10-19] VITALS: Ht 165.1 cm; Wt 86.3 kg
[2019-10-19] MEDS ORDERED: Amiodarone HCl200 MG PO (15:21)
[2019-10-19] MEDS ORDERED: ELIQUIS5 M2 PO (15:22)
[2019-10-19] MEDS ORDERED: ATOR80 PO (15:22)
[2019-10-19] MEDS ORDERED: Plavix75 MG PO (15:23)
[2019-10-19] MEDS ORDERED: DIGOX125 MC2 PO (15:24)
[2019-10-19] MEDS ORDERED: Docusate Sodiu100 M1 PO (15:24)
[2019-10-19] MEDS ORDERED: FURO40 PO ×2 (15:24)
[2019-10-19] MEDS ORDERED: MAGNESIUM OXID500 MG PO (15:25)
[2019-10-19] MEDS ORDERED: Hair, Skin & N1 EACH PO (15:25)
[2019-10-19] MEDS ORDERED: LISI5 PO (15:25)
[2019-10-19] MEDS ORDERED: GABA300 PO (15:25)
[2019-10-19] MEDS ORDERED: Nitro-Dur1 EAC5 (15:26)
[2019-10-19] MEDS ORDERED: OMEP20ER PO (15:26)
[2019-10-19] MEDS ORDERED: POTA10T PO (15:26)
[2019-10-19] MEDS ORDERED: ALBU90OI INH (15:27)
[2019-10-19] MEDS ORDERED: BENZ100A PO ×2 (15:27→21:18)
[2019-10-19] MEDS ORDERED: GUAI600T33 PO ×2 (15:27→19:48)
[2019-10-19] MEDS ORDERED: CYCL10 PO ×2 (15:27→19:46)
[2019-10-19] MEDS ORDERED: POLYETHYLENE G500 G1 PO (15:28)
[2019-10-19] MEDS ORDERED: NITROGLYCERIN0.4 M2 SL (15:29)
[2019-10-19] MEDS ORDERED: ONDA4ODT MM (15:29)
[2019-10-19] MEDS ORDERED: OXYC10TA19 PO (15:29)
[2019-10-19 15:31] LABS: BASOPHILS ABSOLUTE AUTO 0.04 K/mm3 (0.00-0.23); BASOPHILS PERCENT AUTO 1 % (0-2); EOSINOPHILS ABSOLUTE AUTO 0.37 K/mm3 (0.00-0.68); EOSINOPHILS PERCENT AUTO 5 % (0-6); Hematocrit 35.2 % (33.0-51.0); Hemoglobin 12.1 g/dL (11.5-16.0); IMMATURE GRAN ABSOLUTE AUTO 0.02 K/mm3 (0.00-0.10); IMMATURE GRAN PERCENT AUTO 0 % (0-1); LYMPHOCYTES ABSOLUTE AUTO 1.95 K/mm3 (0.84-5.20); LYMPHOCYTES PERCENT AUTO 26 % (21-46); MONOCYTES ABSOLUTE AUTO 0.81 K/mm3 (0.16-1.47); MONOCYTES PERCENT AUTO 11 % (4-13); Mean Corpuscular HGB Conc 34.4 g/dL (31.5-36.5); Mean Corpuscular Volume 99 fL (80-100); Mean Platelet Volume 9.5 fL (9.1-12.4); NEUTROPHILS ABSOLUTE AUTO 4.26 K/mm3 (1.96-9.15); NEUTROPHILS PERCENT AUTO 57 % (41-73); Platelet Count 208 K/mm3 (150-400); RDW Coefficient Variation 12.8 % (11.7-14.2); RDW Standard Deviation 46.4 fL (35.1-46.3); Red Blood Cell Count 3.56 M/mm3 (3.80-5.20); White Blood Cell Count 7.45 K/mm3 (4.00-11.30)
[2019-10-19 15:49] LABS: Alanine Aminotransfer (ALT/SGP 27 U/L (12-78); Albumin, Blood 3.6 g/dL (3.4-5.0); Alk Phos 109 U/L (50-136); Anion Gap 9 mmol/L (6-16); Aspartate Aminotrans (AST/SGOT 33 U/L (12-37); Bilirubin, Total 0.8 mg/dL (0.1-1.0); Blood Urea Nitrogen 16 mg/dL (8-24); Bun/Creatinine Ratio 18.3 (12.0-20.0); CO2, Blood 24 mmol/L (21-32); Chloride, Blood 106 mmol/L (98-108); Creatinine, Blood 0.87 mg/dL (0.40-1.00); Globulin, Blood 3.6 g/dL (2.2-4.0); Glomerular Filtration Rate >60 (60-); Glucose, Blood 110 mg/dL (70-99); Potassium, Blood 3.2 mmol/L (3.5-5.5); Sodium, Blood 139 mmol/L (136-145); Total Protein, Blood 7.2 g/dL (6.4-8.2); Troponin I 0.023 ng/mL (0.000-0.040)
[2019-10-19 15:58] LABS: Digoxin (Lanoxin) 0.88 ug/mL (0.80-2.00)
[2019-10-19] MEDS ORDERED: AMBIEN5 MG PO (16:58)
[2019-10-19] MEDS ORDERED: DIGOX125 MC1 PO (16:59)
--- NOTE | 2019-10-19 18:56 | NUR ---
PT ADMITTED. PT ORIENTED TO FLOOR. CALL LIGHT & PHONE IN REACH. PAIN MEDS GIVEN. REPORT TO BE GIVEN TO ONCOMING NURSE.
[2019-10-19] MEDS ORDERED: MIRALAX17 GM PO (19:47)
[2019-10-19] MEDS ORDERED: DIPATR PO (19:49)
[2019-10-19] MEDS ORDERED: Percocet 10-321 EACH PO ×2 (19:50→19:51)
[2019-10-19] MEDS ORDERED: ANAS1 PO (21:05)
[2019-10-20 03:35] LABS: BASOPHILS ABSOLUTE AUTO 0.05 K/mm3 (0.00-0.23); BASOPHILS PERCENT AUTO 1 % (0-2); EOSINOPHILS ABSOLUTE AUTO 0.39 K/mm3 (0.00-0.68); EOSINOPHILS PERCENT AUTO 7 % (0-6); Hematocrit 34.6 % (33.0-51.0); Hemoglobin 11.2 g/dL (11.5-16.0); IMMATURE GRAN ABSOLUTE AUTO 0.02 K/mm3 (0.00-0.10); IMMATURE GRAN PERCENT AUTO 0 % (0-1); LYMPHOCYTES PERCENT AUTO 29 % (21-46); MONOCYTES ABSOLUTE AUTO 0.69 K/mm3 (0.16-1.47); MONOCYTES PERCENT AUTO 13 % (4-13); Mean Corpuscular HGB 33.5 pg (26.0-34.0); Mean Corpuscular HGB Conc 32.4 g/dL (31.5-36.5); Mean Corpuscular Volume 104 fL (80-100); Mean Platelet Volume 9.1 fL (9.1-12.4); NEUTROPHILS ABSOLUTE AUTO 2.62 K/mm3 (1.96-9.15); NEUTROPHILS PERCENT AUTO 50 % (41-73); Platelet Count 176 K/mm3 (150-400); RDW Coefficient Variation 13.2 % (11.7-14.2); RDW Standard Deviation 49.9 fL (35.1-46.3); Red Blood Cell Count 3.34 M/mm3 (3.80-5.20); White Blood Cell Count 5.27 K/mm3 (4.00-11.30)
[2019-10-20 04:00] LABS: Alanine Aminotransfer (ALT/SGP 21 U/L (12-78); Albumin, Blood 3.2 g/dL (3.4-5.0); Albumin/Globulin Ratio 0.9 (0.8-1.8); Alk Phos 96 U/L (50-136); Anion Gap 5 mmol/L (6-16); Aspartate Aminotrans (AST/SGOT 24 U/L (12-37); Bilirubin, Total 0.8 mg/dL (0.1-1.0); Blood Urea Nitrogen 20 mg/dL (8-24); Bun/Creatinine Ratio 26.5 (12.0-20.0); CO2, Blood 30 mmol/L (21-32); Calcium, Blood 8.7 mg/dL (8.5-10.1); Chloride, Blood 106 mmol/L (98-108); Creatinine, Blood 0.75 mg/dL (0.40-1.00); Globulin, Blood 3.4 g/dL (2.2-4.0); Glomerular Filtration Rate >60 (60-); Glucose, Blood 110 mg/dL (70-99); Magnesium, Blood 2.4 mg/dL (1.6-2.4); Sodium, Blood 141 mmol/L (136-145); Total Protein, Blood 6.6 g/dL (6.4-8.2)
--- NOTE | 2019-10-20 04:14 | NUR ---
SUMMARY PT HAD SOME CX PAIN UPON ARRIVAL. PROVIDER CALLED AND ORDERED MORPHINE. PT HAS EXPERIENCED INCREASED RELIEF W/ MORPHINE. PT HAD NO OTHER ISSUES. PT WAS ABLE TO SLEEP DURING SHIFT. PT CURRENTLY SLEEPING AND BREATHING EASY. CALL LIGHT IN REACH.
--- NOTE | 2019-10-20 16:34 | NUR ---
SHIFT SUMMARY- PT A/OX4, SBA WITH FWW UP TO BATHROOM. PT MEDICATED FOR CHRONIC LEFT HIP PAIN/ JOINT PAIN WELL HEADACHE. LS CLEAR, ON RA. TELE SR WITH FIRST DEGREE AT 81, CADIOLOGY CONSULT WITH PLAN FOR ANGIO ON TUESDAY AND HEPARIN GTT TO START TOMORROW AM AT 0800. XARELTO STOPPED. RAPID COVID NEGATIVE. 2+ BLE EDEMA. PT DID REPORT SOME MILD CHEST PAIN THAT RESOLVED WITH MORPHINE. DIZZINESS AT TIMES UPON STANDING. MULTIPLE IV ATTEMPTS TODAY FOR NEW IV SITE WITHOUT SUCCESS, PT DOES HAVE A FUNCTIONING FIELD START AT THIS TIME. NO OTHER ACUTE CHANGES THIS SHIFT.
[2019-10-21 05:12] LABS: International Normalized Ratio 1.05; Prothrombin Time Results 11.2 Sec (9.7-11.5)
--- NOTE | 2019-10-21 05:45 | NUR ---
SHIFT SUMMARY ASSUMED CARE OF PT AT 1900. PT IS A/OX4, DENIES N/T IN EXTREMITES. HEART SOUNDS REGULAR, TELE SHOWS SINUS WITH FIRST DEGREE BLOCK @ 81, DENIES CP AT THIS TIME BUT C/O HEADACHE DUE TO INCREASED DOSE OF NITRO, PATCHES TAKEN OFF AT 2230 AND REAPPLIED THIS AM. LUNG SOUNDS CLEAR, DENIES SOB AT THIS TIME. PT IS SBA WITH WALKER TO BATHROOM. PT C/O PAIN IN HER JOINTS AND HIPS, MEDICATED PER EMAR. NO ACUTE EVENTS DURING THE NIGHT. PT SLEPT T/O THE NIGHT. CALL LIGHT IN REACH, BED IN LOWEST POSTION, WILL CONTINUE TO MONITOR UNTIL DAYSHIFT NURSE ARRIVES.
--- NOTE | 2019-10-21 18:31 | NUR ---
SHIFT SUMMARY PATIENT IS PLEASNAT, ALERT AND ORIENTED INDEPENDENT IN THE ROOM. CALLS APPROPRIATLEY. ALVARADO BE NPO AT MIDNIGHT 10/22/19. PATIENT HAS NOTED INTERMITTENT CHEST PAIN TODAY. SHE WAS STARTED ON A HEPARIN DRIP AND IS EXPECTED FOR ANGIOGRAPHY TOMORROW AM ON 10/22/19. 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 DOES HAVE CHRONIC PAIN FROM OSTEOARTHRITIS.
--- NOTE | 2019-10-22 04:39 | NUR ---
SHIFT SUMMARY PT HAD UNEVENTFUL NIGHT. CHRONIC PAIN TO LEFT HIP. MEDICATED PER EMAR. SOME MILD CHEST PAIN WITH EXERTION. PT DENIES ANY SOB OR NAUSEA. PT NPO SINCE MIDNIGHT FOR ANGIO TODAY. VITAL SIGNS STABLE. NO ACUTE CHANGES THIS SHIFT. WILL CONTINUE TO MONITOR.
--- NOTE | 2019-10-22 09:26 | NUR ---
PT LEFT FOR ANGIO RIGHT AT SHIFT CHANGE. PT LOOK TO BE COMFORTABLE AND COOPERATIVE. NO DISTRESS NOTED. REPORT WAS PASSED TO ICU 7 NURSE AT 0922. ALL BELONGINGS WHERE COLLECTED AND TAKEN TO ICU.
--- NOTE | 2019-10-22 09:30 | NUR ---
INITIAL ASSESSMENT Assumed care of pt upon arrival to ICU 7 at 0910 from [facility]. Pt PCU status. Pt previously in room 328, went to [facility] for coronary angiogram. Pt arrived to unit with right transradial site with TR band in place. Color, sensation, pulses, capillary refill equal BUE. Site free of drainage or hematoma. Pt educated on activity restrictions and verbalizes understanding. Pt A&O x 4. Answers questions, follows commands, verbalizes needs. SpO2 90% or greater RA. Lungs clear, dim in bases. SR per monitor. BLE edema, nonpitting. ABD soft, nontender, nondistended. Bed in lowest position. Call light in reach. Pt denies need at this time.
--- NOTE | 2019-10-22 09:43 | NUR ---
CALL PLACED TO DR MYERS Clarified nitro paste. Provider states this order to be discontinued.
[2019-10-22] MEDS ORDERED: ASPI81CH PO (14:27)
[2019-10-22] MEDS ORDERED: AMLO5 PO (14:27)
[2019-10-22] MEDS ORDERED: METO50ER PO (14:28)
[2019-10-22] MEDS ORDERED: OXYC10TA19 PO (14:30)
--- NOTE | 2019-10-22 15:44 | NUR ---
DISCHARGE Pt discharged from ICU 8 at 1520 via wheelchair accompanied by this RN. Pt met spouse at patient entrance, who is driving her home. Medication list faxed to [facility], which pt states is her preferred pharmacy. This RN scheduled cardiology follow up for patient. Attempted to schedule appointment for primary care provider, however unable to reach a vector control specialist. Pt states she will call and arrange an appoitment. TR band deflated at 1400. Opsite placed at 1500. No changes to initial assessment of site. Pt verbalizes understanding of radial site precautions. Reviewed new medication regimen. Discussed side effects of new prescribed medications and blood thinners.
== END 2019-10-22 15:20 | disposition home or self-care (01) | DRG 287 ==
LOC: ER 14:40 → MEDS 14:41 → ICUE 10-22 08:47
PROVIDERS: Emergency Medicine; Internal Medicine Interventional Cardiology; Nurse Practitioner Acute Care; ADMIT Internal Medicine
PROC: B2111ZZ Fluoroscopy of Multiple Coronary Arteries using Low Osmolar Contrast (ICD-10-PCS; principal; 2019-10-22)
PROC: 4A023N7 Measurement of Cardiac Sampling and Pressure, Left Heart, Percutaneous Approach (ICD-10-PCS; 2019-10-22)
PROC: 4A033BC Measurement of Arterial Pressure, Coronary, Percutaneous Approach (ICD-10-PCS; 2019-10-22)
DX: I25.119 Atherosclerotic heart disease of native coronary artery with unspecified angina pectoris (principal); I50.42 Chronic combined systolic (congestive) and diastolic (congestive) heart failure; Z86.73 Personal history of transient ischemic attack (TIA), and cerebral infarction without residual deficits; I35.0 Nonrheumatic aortic (valve) stenosis; I48.0 Paroxysmal atrial fibrillation; K21.9 Gastro-esophageal reflux disease without esophagitis; Z96.653 Presence of artificial knee joint, bilateral; E87.6 Hypokalemia; Z95.2 Presence of prosthetic heart valve
CPT/HCPCS: 36415; 71046; 80053; 80162; 83690; 83735; 83880; 84484; 85025; 85347; 85610; 85730; 93005; 93010; 93306; 93571; 96374; 96376; 99152; 99153; 99285-25; A9270; A9270-GY; C1769; C1887; C1894; G0378; J1644; J2250; J2270; J7030; Q9967; U0002

== ENCOUNTER 2019-11-16 10:27 | Inpatient (IN) | payer MEDICARE, BC, OTHER ==
[~2019-11-16] VITALS: Ht 167.6 cm; Wt 89.6 kg
[~2019-11-16 10:27] MED LIST changes: +ALBU90OI INH; +AMLO5 PO; +Amiodarone HCl200 MG PO; +DIGOX125 MC1 PO; +DIGOX125 MC2 PO; +DIPATR PO; +Docusate Sodiu100 M1 PO; +ELIQUIS5 M2 PO; +Hair, Skin & N1 EACH PO; +NITROGLYCERIN0.4 M2 SL; +Nitro-Dur1 EAC5; +POLYETHYLENE G500 G1 PO; +POTA10T PO; +Percocet 10-321 EACH PO; +Plavix75 MG PO
[2019-11-16 11:03] LABS: BASOPHILS ABSOLUTE AUTO 0.04 K/mm3 (0.00-0.23); BASOPHILS PERCENT AUTO 1 % (0-2); EOSINOPHILS ABSOLUTE AUTO 0.25 K/mm3 (0.00-0.68); EOSINOPHILS PERCENT AUTO 4 % (0-6); Hematocrit 36.3 % (33.0-51.0); Hemoglobin 12.6 g/dL (11.5-16.0); IMMATURE GRAN ABSOLUTE AUTO 0.01 K/mm3 (0.00-0.10); IMMATURE GRAN PERCENT AUTO 0 % (0-1); LYMPHOCYTES ABSOLUTE AUTO 1.77 K/mm3 (0.84-5.20); LYMPHOCYTES PERCENT AUTO 25 % (21-46); MONOCYTES ABSOLUTE AUTO 0.63 K/mm3 (0.16-1.47); MONOCYTES PERCENT AUTO 9 % (4-13); Mean Corpuscular HGB Conc 34.7 g/dL (31.5-36.5); Mean Corpuscular Volume 98 fL (80-100); Mean Platelet Volume 9.2 fL (9.1-12.4); NEUTROPHILS ABSOLUTE AUTO 4.53 K/mm3 (1.96-9.15); NEUTROPHILS PERCENT AUTO 63 % (41-73); Platelet Count 238 K/mm3 (150-400); RDW Coefficient Variation 12.3 % (11.7-14.2); RDW Standard Deviation 44.3 fL (35.1-46.3); Red Blood Cell Count 3.71 M/mm3 (3.80-5.20); White Blood Cell Count 7.23 K/mm3 (4.00-11.30)
[2019-11-16 11:24] LABS: Alanine Aminotransfer (ALT/SGP 24 U/L (12-78); Albumin, Blood 3.7 g/dL (3.4-5.0); Albumin/Globulin Ratio 0.9 (0.8-1.8); Alk Phos 125 U/L (50-136); Anion Gap 9 mmol/L (6-16); Aspartate Aminotrans (AST/SGOT 33 U/L (12-37); Bilirubin, Total 1.1 mg/dL (0.1-1.0); Blood Urea Nitrogen 15 mg/dL (8-24); Bun/Creatinine Ratio 20.7 (12.0-20.0); CO2, Blood 26 mmol/L (21-32); Calcium, Blood 9.5 mg/dL (8.5-10.1); Chloride, Blood 107 mmol/L (98-108); Creatinine, Blood 0.72 mg/dL (0.40-1.00); Glomerular Filtration Rate >60 (60-); Glucose, Blood 131 mg/dL (70-99); Potassium, Blood 3.7 mmol/L (3.5-5.5); Sodium, Blood 142 mmol/L (136-145); Total Protein, Blood 7.7 g/dL (6.4-8.2); Troponin I 0.019 ng/mL (0.000-0.040)
[2019-11-16 16:03] LABS: D-Dimer, Quantitative 0.72 mg/L FEU (0.00-0.52); International Normalized Ratio 1.07; Prothrombin Time Results 11.4 Sec (9.7-11.5)
[2019-11-16 16:08] LABS: Phosphorus, Blood 4.6 mg/dL (2.5-4.9); Troponin I 0.022 ng/mL (0.000-0.040)
--- NOTE | 2019-11-16 17:48 | NUR ---
REPORT FROM MARIANO MCFADDEN OF ER. PATIENT IN CHEST PAIN ADMITTED TO ICU 1 AT 1736. CHEST PAIN CONTINUES 11/22. DR. MAN PAGED TO NOTIFY OF PATIENT ARRIVAL.
[2019-11-16] MEDS ORDERED: OXYC10TA19 PO (18:36)
--- NOTE | 2019-11-16 18:37 | NUR ---
DR. MAN IN. CONSENT SIGNED FOR PCI WITH ANTICIPATION THAT IT WILL BE ON TUESDAY AFTER ELIQUIS HAS WORN OFF. ORDER FOR NTG GTT AND POTASSIUM CHANGED FROM IV TO PO
--- NOTE | 2019-11-16 19:05 | NUR ---
NTG STARTED AT 10 MCG/MIN. 2 MG IV MORPHINE GIVEN. SBP 140. NTG TITRATED TO 20 MCG/MIN. REPORT GIVEN TO MARIANO HOLCOMB
--- NOTE | 2019-11-16 22:00 | NUR ---
ASSUMPTION OF CARE ASSUMED CARE OF PT @ 1900, PT ALERT AND ORIENTED x4, O2 SATURATIONS>90% ON RA, MONITOR SHOWS SINUS RHYTHM WITH HR 70'S, BP STABLE ON NITRO GTT @ 20 (SEE FLOWSHEET FOR TITRATIONS), PT REPORTS CP 11/22, MORPHINE ADMINISTERED BY RAMÓN RN. PT DENIES GI/ ISSUES. SBA TO BSC. PT WITH EDEMA TO BLE, REPORTS NORMAL, Hx OF CHARCOT FOOT. CALL PLACED TO DR MAN AT APPROX 1999 TO CLARIFY METOPROLOL ORDER, UPDATED ON NITRO GTT RATE AND CURRENT VITAL SIGNS. PER DR MAN OKAY TO GIVE ORDERED DOSE, GOAL TO MAINTAIN SBP>90. CALL LIGHT WITHIN REACH, PT USING APPROPRIATELY.
--- NOTE | 2019-11-16 23:15 | NUR ---
HYPOTENSION PT WITH SBP IN THE 80'S, NITRO TITRATED DOWN FROM 25 TO 20, NOTIFIED PT OF CHANGE IN GTT RATE AND TO NOTIFY RN IF CP INCREASES. BP CONTINUED TO DROP TO SBP IN 70'S, NITRO REDUCED TO [address] AND CALL PLAC[address] TO DR MAN. ORDERS TO GIVE 250ml NS BOLUS AND THEN MEDICATE WITH MORPHINE, THEN TITRATE NITRO GTT TOLERATED. PT TO REMAIN NPO AT THIS TIME.
[2019-11-17 02:18] LABS: BASOPHILS ABSOLUTE AUTO 0.04 K/mm3 (0.00-0.23); BASOPHILS PERCENT AUTO 1 % (0-2); EOSINOPHILS ABSOLUTE AUTO 0.37 K/mm3 (0.00-0.68); EOSINOPHILS PERCENT AUTO 7 % (0-6); Hematocrit 33.6 % (33.0-51.0); Hemoglobin 11.1 g/dL (11.5-16.0); IMMATURE GRAN ABSOLUTE AUTO 0.02 K/mm3 (0.00-0.10); IMMATURE GRAN PERCENT AUTO 0 % (0-1); LYMPHOCYTES PERCENT AUTO 25 % (21-46); MONOCYTES ABSOLUTE AUTO 0.69 K/mm3 (0.16-1.47); MONOCYTES PERCENT AUTO 12 % (4-13); Mean Corpuscular HGB 33.4 pg (26.0-34.0); Mean Corpuscular Volume 101 fL (80-100); Mean Platelet Volume 8.7 fL (9.1-12.4); NEUTROPHILS ABSOLUTE AUTO 3.09 K/mm3 (1.96-9.15); NEUTROPHILS PERCENT AUTO 55 % (41-73); Platelet Count 208 K/mm3 (150-400); RDW Coefficient Variation 12.8 % (11.7-14.2); RDW Standard Deviation 47.8 fL (35.1-46.3); Red Blood Cell Count 3.32 M/mm3 (3.80-5.20); White Blood Cell Count 5.61 K/mm3 (4.00-11.30)
[2019-11-17 02:41] LABS: Alanine Aminotransfer (ALT/SGP 19 U/L (12-78); Albumin, Blood 3.3 g/dL (3.4-5.0); Alk Phos 106 U/L (50-136); Anion Gap 5 mmol/L (6-16); Aspartate Aminotrans (AST/SGOT 21 U/L (12-37); Bilirubin, Total 1.1 mg/dL (0.1-1.0); Blood Urea Nitrogen 17 mg/dL (8-24); Bun/Creatinine Ratio 20.3 (12.0-20.0); CO2, Blood 29 mmol/L (21-32); Calcium, Blood 8.6 mg/dL (8.5-10.1); Chloride, Blood 107 mmol/L (98-108); Creatinine, Blood 0.84 mg/dL (0.40-1.00); Globulin, Blood 3.3 g/dL (2.2-4.0); Glomerular Filtration Rate >60 (60-); Glucose, Blood 107 mg/dL (70-99); Potassium, Blood 3.7 mmol/L (3.5-5.5); Sodium, Blood 141 mmol/L (136-145); Total Protein, Blood 6.6 g/dL (6.4-8.2); Troponin I 0.016 ng/mL (0.000-0.040)
--- NOTE | 2019-11-17 06:00 | NUR ---
SHIFT SUMMARY PT REMAINS ALERT AND ORIENTED T/O SHIFT, O2 SATURATIONS>90% ON RA, MONITOR SHOWS SINUS RHYTHM WITH HR 60'S-70'S, EKG COMPLETED THIS AM- SEE PTS CHART, PT CONTINUES TO REPORT CP, NITRO GTT INF (SEE FLOWSHEET FOR TITRATIONS) SOME HYPOTENSION THIS SHIFT (SEE PREVIOUS NOTE), PT MEDICATED WITH PRN PAIN MEDICATIONS FOR CHEST AND HEAD PAIN, SEE PAIN ASSESSMENTS. PT TO BSC WITH SBA, DENIES ANY GI/ ISSUES.
--- NOTE | 2019-11-17 07:19 | NUR ---
ASSUMED CARE REPORT FROM MARIANO HOLCOMB. PATIENT IS STILL C/O OF CHEST PAIN 08/23 AND DIEHL 10/23. NTG GTT TITRATED TO 12 MCG/MIN. PATIENT NPO PER DR MAN ORDER.
[2019-11-17 09:45] LABS: Source, Urine Catheter
[2019-11-17 09:49] LABS: Appearance, Urine Clear (Clear); Bilirubin, Urine Neg (Neg); Blood, Urine Neg (Neg); Color, Urine Yellow (P-Yellow); Glucose Qualitative, Urine Neg (Neg); Ketones, Urine Neg (Neg); Leukocyte Esterase, Urine Neg (Neg); Nitrite, Urine Neg (Neg); Protein, Urine Neg (Neg); Urobilinogen, Urine NORM (Normal)
--- NOTE | 2019-11-17 10:06 | NUR ---
MORNING SUMMARY: PATIENT EXPERIENCING INCREASED CHEST PAIN AND HIP PAIN WITH BSC USE. CLEANING CATHETER PLACED USING STERILE TECHNIQUE AND ASSISTANCE FROM MOI RN AND HOMERO RN. INITIALLY 18FR ATTEMPTED, BUT URETHRA WAS BETTER VISUALIZED WITH 18 FR BELOW IT AND 16FR INSERTED. TOLERATED WELL. IMMEDIATE RETURN OF CLEAR YELLOW URINE. DR. MAN IN. ORDER FOR HEPARIN GTT TO BE DOSED BY PHARMACY. HEPARIN GTT TO BE STOPPED AT 0500 TOMORROW FOR 0900 PCI. NPO AFTER MIDNIGHT. DR. HENDERSON IN. MORPHINE DOSE INCREASED FOR CONTINUED CHEST PAIN AND DIEHL. BOTH DOWN TO 3/10 PAIN AFTER 4 MG MORPHINE IV. PATIENT HAS SEVERE ALLERGY TO FENTANYL. NO BP ON LEFT ARM D/T MASTECTOMY. PATIENT POSITIONS SELF IN BED TO COMFORT.
--- NOTE | 2019-11-17 14:41 | NUR ---
NTG AT 25 MCG/MIN. CHEST PAIN ALMOST GONE, BUT PT HAS A DIEHL.
--- NOTE | 2019-11-17 17:29 | NUR ---
HEPARIN GTT TO 15 UNITS/KG/HR PER PHARMACY. NTG GTT TITRATED TO 20 MCG/MIN FOR INCREASED DIEHL. CHEST PAIN REPORTED AT 05/25.
--- NOTE | 2019-11-17 18:35 | NUR ---
CHEST PAIN 0/10 WITH NTG GTT AT 20 MCG/MIN. OXYCODONE AND TYLENOL GIVEN FOR DIEHL AND HIP PAIN. URINE OUTPUT FOR SHIFT 1400 CC. WILL REPORT TO ONCOMING SHIFT.
--- NOTE | 2019-11-17 21:34 | NUR ---
ASSUMPTION OF CARE ASSUMED CARE OF PT @ 1900, PT AWAKE AND ORIENTED x4, MONITOR SHOWS SINUS RHYTHM, PT DENIES CP, NITRO INFUSING @ 20 AND HEPARIN @ 15 (SEE FLOWSHEET FOR TITRATION AND RATES), BP STABLE. O2 SATURATIONS>90% ON RA, PT DENIES SOB. CLEANING IN PLACE DRAINING LIGHT YELLOW URINE. PT REPORTS MILD HEADACHE, PRN PAIN MEDICATION PROVIDED. PT UNDERSTANDS PLAN FOR THIS SHIFT, NPO AFTER MIDNIGHT, CLEAR LIQUIDS ONLY AT THIS TIME. CALL LIGHT WITHIN REACH, PT USING APPROPRIATELY.
--- NOTE | 2019-11-18 05:12 | NUR ---
SHIFT SUMMARY NO ACUTE CHANGES THIS SHIFT, PT REMAINS FREE FROM CHEST PAIN FOR ENTIRE SHIFT, CONTINUED HEAD ACHE, PRN PAIN MEDICATIONS ADEQUATE FOR PAIN CONTROL. NO CHANGES IN NITRO GTT T/O SHIFT, HEPARIN GTT PLACED ON SB AT 0500. PT HAS BEEN NPO SINCE 2300. PLAN FOR PRIVATE BANKER AT 0900. VSS THROUGHOUT SHIFT, PT REMAINS ON RA WITH O2 SATURATIONS>90%, PT DENIES SOB. PT HAS RESTED WELL W/O NIGHT, WAKES UP AND USES CALL LIGHT APPROPRIATELY AND MAKES NEEDS KNOWN.
--- NOTE | 2019-11-18 06:00 | NUR ---
PT REPORTING INCREASING HEAD PAIN, CONTINUES TO DENY CP, NITRO TITRATED TO 15.
--- NOTE | 2019-11-18 06:10 | NUR ---
DR MAN IN TO SEE PT, NO NEW ORDERS AT THIS ITME.
--- NOTE | 2019-11-18 06:55 | NUR ---
ASSUMED CARE REPORT FROM MARIANO HOLCOMB. PATIENT IS AWAKE, CHEST PAIN FREE ON NTG GTT. DIEHL 08/23. HEPARIN WAS TURNED OFF AT 0500 AND PATIENT HAS BEEN NPO SINCE MIDNIGHT. WILL GIVE AM MEDS AND PAIN MEDS FOR DIEHL. SCHEDULED FOR CYLINDER PRESS FEEDER AT 0900.
--- NOTE | 2019-11-18 08:04 | NUR ---
VISIT DR. HENDERSON IN NO NEW ORDERS. SON AND IN TO VISIT.
--- NOTE | 2019-11-18 08:37 | NUR ---
PATIENT TO [employer] AT 0829 WITH MARIANO MCINTOSH AND MARIANO LAND
--- NOTE | 2019-11-18 12:23 | NUR ---
PATIENT RETURNED FROM ORTHOTIC/PROSTHETIC PRACTITIONER AROUND 1040. NTG GTT AT 15 MCG/MIN. SHEATH IN RIGHT FEMORAL. HEPARIN WITH PRESSURE BAG INFUSING THROUGH CORDIS. GROIN SITE SOFT TO PALP. PATIENT WILL TRANSFER TO [facility] IN [place]. DR. GERBER IS ACCEPTING. BRITTA FROM [facility] [phone]) CALLED TO ADVISE SHE WILL BE ON A WAITLIST FOR A BED AND PROBABLY WON'T BE ACCEPTED UNTIL TOMORROW. DR. MAN CONSULTED RE: HEPARIN GTT. ORDERS TO RESTART IT AT 1000 UNITS AN HOUR 6 HOURS AFTER SHEATH IS PULLED. PTT IS CRITICALLY HIGH AT THIS TIME.
--- NOTE | 2019-11-18 16:09 | NUR ---
PATIENT REPOSITIONED. PTT ORDERED IN PREP FOR SHEATH REMOVAL. GROIN SITE SOFT TO PALP. SLIGHT OOZE AROUND SHEATH ON 2x2 UNDER CLEAR DRESSING.
--- NOTE | 2019-11-18 17:03 | NUR ---
SHEATH PULLED AT 1701 BY MARIANO SALEEM.
--- NOTE | 2019-11-18 17:27 | NUR ---
HEMOSTASIS 1721. CLEAR OCCLUSIVE DRESSING PLACED HOB TO 35 DEGREES
--- NOTE | 2019-11-18 18:03 | NUR ---
NTG GTT TO 20 MCG/MIN FOR CHEST PAIN 08/23.
--- NOTE | 2019-11-18 20:13 | NUR ---
DR MYERS IN TO SEE PT, ASSESSED GROIN SITE, NO NEW ORDERS AT THIS TIME.
--- NOTE | 2019-11-18 20:17 | NUR ---
ASSUMPTION OF CARE PT ALERT AND ORIENTED x4, O2 SATURATIONS>90% ON RA, MONITOR SHOWS SINUS RHTYHM WITH HR 70'S, PT REPORTS CP 3/10 AND HEADACHE 4/10, NITRO INFUSING @ 20 (SEE FLOWSHEET FOR TITRATIONS), PRN OXYCODONE PROVIDED FOR HEADACHE. R GROIN SITE WITH TEGADERM DRESSING, SCANT BLOOD DRAINAGE, NO HEMATOMA OR TENDERNESS NOTED, PT AWARE OF NEED TO KEEP LEG IMMOBILIZED. PLAN FOR TRANSFER TO [facility] WHEN BED BECOMES AVAILABLE, PT AND FAMILY AWARE. CALL LIGHT WITHIN REACH, PT USES APPROPRIATELY.
--- NOTE | 2019-11-18 23:16 | NUR ---
HEPARIN GTT INITIATED PER ORDER, PT SLEEPING IN BED, AROUSES WITH VERBAL STIMULI, SOME CONFUSION UPON WAKING. PT THOUGHT SHE WAS AT HOME, ASKED WHERE WAS, PT EASILY REORIENTED, PERRLA. PT NOW ANSWERING QUESTIONS APPROPRIATELY AND ORIENTED TO SELF, LOCATION, EVENT, FOLLOWING DIRECTIONS.
--- NOTE | 2019-11-19 05:14 | NUR ---
SHIFT SUMMARY NO ACUTE CHANGES THIS SHIFT. PT RESTED WELL T/O NIGHT, AROUSES TO VERBAL STIMULI AND ORIENTED x4. PT REMAINS ON RA WITH O2>90%, MONITOR SHOWS SINUS RHYTHM WITH HR 60'S, BP STABLE, NITRO GTT INFUSING @ 15 (SEE FLOWSHEET FOR TITRATIONS), HEPARIN STARTED THIS SHIFT @ 2300. PT CHEST PAIN FREE LATER IN SHIFT (SEE PAIN ASSESSMENTS). CLEANING REMAINS IN PLACE. PT AWARE OF PLAN FOR TRANSFER, AWAITING FOR AVAILABLE BED. CALL LIGHT IN PLACE, PT USING APPROPRIATELY.
[2019-11-19 06:10] LABS: BASOPHILS ABSOLUTE AUTO 0.03 K/mm3 (0.00-0.23); BASOPHILS PERCENT AUTO 1 % (0-2); EOSINOPHILS ABSOLUTE AUTO 0.54 K/mm3 (0.00-0.68); EOSINOPHILS PERCENT AUTO 9 % (0-6); Hemoglobin 10.6 g/dL (11.5-16.0); IMMATURE GRAN ABSOLUTE AUTO 0.02 K/mm3 (0.00-0.10); IMMATURE GRAN PERCENT AUTO 0 % (0-1); LYMPHOCYTES ABSOLUTE AUTO 1.45 K/mm3 (0.84-5.20); LYMPHOCYTES PERCENT AUTO 23 % (21-46); MONOCYTES ABSOLUTE AUTO 0.63 K/mm3 (0.16-1.47); MONOCYTES PERCENT AUTO 10 % (4-13); Mean Corpuscular HGB 33.4 pg (26.0-34.0); Mean Corpuscular HGB Conc 33.1 g/dL (31.5-36.5); Mean Corpuscular Volume 101 fL (80-100); Mean Platelet Volume 8.7 fL (9.1-12.4); NEUTROPHILS ABSOLUTE AUTO 3.64 K/mm3 (1.96-9.15); NEUTROPHILS PERCENT AUTO 58 % (41-73); Platelet Count 170 K/mm3 (150-400); RDW Coefficient Variation 12.3 % (11.7-14.2); RDW Standard Deviation 45.3 fL (35.1-46.3); Red Blood Cell Count 3.17 M/mm3 (3.80-5.20); White Blood Cell Count 6.31 K/mm3 (4.00-11.30)
[2019-11-19 06:25] LABS: Anion Gap 6 mmol/L (6-16); Blood Urea Nitrogen 10 mg/dL (8-24); Bun/Creatinine Ratio 14.4 (12.0-20.0); CO2, Blood 26 mmol/L (21-32); Calcium, Blood 9.1 mg/dL (8.5-10.1); Chloride, Blood 109 mmol/L (98-108); Creatinine, Blood 0.69 mg/dL (0.40-1.00); Glomerular Filtration Rate >60 (60-); Glucose, Blood 132 mg/dL (70-99); Potassium, Blood 3.9 mmol/L (3.5-5.5); Sodium, Blood 141 mmol/L (136-145)
--- NOTE | 2019-11-19 07:11 | NUR ---
ASSUMED CARE REPORT FROM MARIANO HOLCOMB. NTG AT 20 MCG/MIN. HEPARIN GTT WILL REMAIN THE SAME AT 15 UNITS/KG/HR. PATIENT SLEEPING.
--- NOTE | 2019-11-19 08:09 | NUR ---
DR. MAN CALLED TO ADVISE TRANSFER ORDER WAS UPDATED WITH HOSPITALIST AND A BED HAD COME AVAILABLE. MEDICATED FOR CONTINUED DIEHL WITH NTG ON. DR. HENDERSON AND HIS MEDICAL STUDENT WERE BOTH IN.
--- NOTE | 2019-11-19 10:53 | NUR ---
REPORT GIVEN TO MARIANO BAER OF [facility]. PATIENT WILL BE GOING TO ROOM 753. IS AT BEDSIDE. AMBULANCE SCHEDULED TO ARRIVE AT 1100. NTG GTT AT 18 MCG/MIN. HEPARIN GTT AT 15 UNITS/KG/HR
--- NOTE | 2019-11-19 11:21 | NUR ---
REPORT TO DANIELITO, [facility]. PATIENT MOVED TO [facility] AND OUT THE DOOR AT 1115, ENROUTE TO [facility] IN [place].
[2019-12-23] MEDS ORDERED: CENTRUM SILVER1 EAC2 PO (15:07)
[2019-12-23] MEDS ORDERED: PANT40 PO (15:08)
[2019-12-23] MEDS ORDERED: OYSTER SHELL 51 EACH PO (15:10)
[2019-12-23] MEDS ORDERED: ANAS1 PO (15:24)
[2019-12-23] MEDS ORDERED: OXYC5 PO (15:39)
[2019-12-23] MEDS ORDERED: CYCL10 PO (18:28)
[2019-12-23] MEDS ORDERED: ZOLP10 PO (18:29)
[2019-12-23] MEDS ORDERED: ONDA4 PO (18:30)
== END 2019-11-19 11:15 | disposition short-term general hospital (02) | DRG 281 ==
LOC: ER 10:27 → ICUW 16:23 → ICUE 16:23
PROVIDERS: Hospitalist; Nurse Practitioner Acute Care; Physician Assistant; Student in an Organized Health Care Education/Training Program; ADMIT Internal Medicine
PROC: 4A023N7 Measurement of Cardiac Sampling and Pressure, Left Heart, Percutaneous Approach (ICD-10-PCS; principal; 2019-11-16)
PROC: B2111ZZ Fluoroscopy of Multiple Coronary Arteries using Low Osmolar Contrast (ICD-10-PCS; 2019-11-16)
PROC: B240ZZ3 Ultrasonography of Single Coronary Artery, Intravascular (ICD-10-PCS; 2019-11-16)
DX: I21.4 Non-ST elevation (NSTEMI) myocardial infarction (principal); I50.42 Chronic combined systolic (congestive) and diastolic (congestive) heart failure; F11.20 Opioid dependence, uncomplicated; I25.110 Atherosclerotic heart disease of native coronary artery with unstable angina pectoris; I11.0 Hypertensive heart disease with heart failure; M19.90 Unspecified osteoarthritis, unspecified site; K21.9 Gastro-esophageal reflux disease without esophagitis; I48.0 Paroxysmal atrial fibrillation; Z95.5 Presence of coronary angioplasty implant and graft; Z95.2 Presence of prosthetic heart valve; I25.2 Old myocardial infarction; Z85.3 Personal history of malignant neoplasm of breast; Z86.73 Personal history of transient ischemic attack (TIA), and cerebral infarction without residual deficits; Z82.49 Family history of ischemic heart disease and other diseases of the circulatory system; Z88.1 Allergy status to other antibiotic agents; Z88.5 Allergy status to narcotic agent; Z88.8 Allergy status to other drugs, medicaments and biological substances; Z79.01 Long term (current) use of anticoagulants; Z79.02 Long term (current) use of antithrombotics/antiplatelets; Z79.82 Long term (current) use of aspirin; Z79.899 Other long term (current) drug therapy
CPT/HCPCS: 36415; 51703; 71046; 71275; 76937; 80048; 80053; 81003; 83735; 83880; 84100; 84484; 85025; 85347; 85379; 85610; 85730; 86850; 86900; 86901; 92978; 93005; 93010; 93454; 96374-59; 96375; 96376-59; 99152; 99153; 99285-25; A9270; A9270-GY; C1725; C1751; C1753; C1769; C1887; C1894; J1170; J1644; J2250; J2270; J3480; J7030; J7040; J7050; Q9967

== ENCOUNTER 2020-02-23 10:19 | Inpatient (IN) | payer MEDICARE, BC, OTHER ==
[~2020-02-23] VITALS: Ht 167.6 cm; Wt 90.7 kg
[~2020-02-23 10:19] MED LIST changes: +CENTRUM SILVER1 EAC2 PO; +OXYC5 PO; +OYSTER SHELL 51 EACH PO; +PANT40 PO; +ZOLP10 PO
[2020-02-23 10:39] LABS: BASOPHILS ABSOLUTE AUTO 0.04 K/mm3 (0.00-0.23); BASOPHILS PERCENT AUTO 1 % (0-2); EOSINOPHILS ABSOLUTE AUTO 0.12 K/mm3 (0.00-0.68); EOSINOPHILS PERCENT AUTO 2 % (0-6); Hematocrit 38.1 % (33.0-51.0); Hemoglobin 13.1 g/dL (11.5-16.0); IMMATURE GRAN ABSOLUTE AUTO 0.02 K/mm3 (0.00-0.10); IMMATURE GRAN PERCENT AUTO 0 % (0-1); LYMPHOCYTES ABSOLUTE AUTO 1.89 K/mm3 (0.84-5.20); LYMPHOCYTES PERCENT AUTO 30 % (21-46); MONOCYTES ABSOLUTE AUTO 0.41 K/mm3 (0.16-1.47); MONOCYTES PERCENT AUTO 6 % (4-13); Mean Corpuscular HGB 33.7 pg (26.0-34.0); Mean Corpuscular HGB Conc 34.4 g/dL (31.5-36.5); Mean Corpuscular Volume 98 fL (80-100); Mean Platelet Volume 8.5 fL (9.1-12.4); NEUTROPHILS ABSOLUTE AUTO 3.93 K/mm3 (1.96-9.15); NEUTROPHILS PERCENT AUTO 61 % (41-73); Platelet Count 251 K/mm3 (150-400); RDW Coefficient Variation 13.4 % (11.7-14.2); RDW Standard Deviation 48.3 fL (35.1-46.3); Red Blood Cell Count 3.89 M/mm3 (3.80-5.20); White Blood Cell Count 6.41 K/mm3 (4.00-11.30)
[2020-02-23] MEDS ORDERED: LEVSOD25 PO (10:49)
[2020-02-23] MEDS ORDERED: LETR2.5 PO (10:49)
[2020-02-23] MEDS ORDERED: ALDACTONE100 MG PO (10:50)
[2020-02-23] MEDS ORDERED: Vitamin D2000 UNIT PO (10:50)
[2020-02-23] MEDS ORDERED: TORSE20 PO (10:51)
[2020-02-23 10:59] LABS: Alanine Aminotransfer (ALT/SGP 44 U/L (12-78); Albumin, Blood 3.5 g/dL (3.4-5.0); Alk Phos 130 U/L (50-136); Anion Gap 7 mmol/L (6-16); Aspartate Aminotrans (AST/SGOT 39 U/L (12-37); Bilirubin, Total 0.8 mg/dL (0.1-1.0); Blood Urea Nitrogen 14 mg/dL (8-24); Bun/Creatinine Ratio 20.5 (12.0-20.0); CO2, Blood 26 mmol/L (21-32); Calcium, Blood 9.6 mg/dL (8.5-10.1); Chloride, Blood 107 mmol/L (98-108); Creatinine, Blood 0.68 mg/dL (0.40-1.00); Globulin, Blood 3.6 g/dL (2.2-4.0); Glomerular Filtration Rate >60 (60-); Glucose, Blood 142 mg/dL (70-99); Magnesium, Blood 1.9 mg/dL (1.6-2.4); Phosphorus, Blood 2.8 mg/dL (2.5-4.9); Potassium, Blood 3.8 mmol/L (3.5-5.5); Sodium, Blood 140 mmol/L (136-145); Total Protein, Blood 7.1 g/dL (6.4-8.2); Troponin I <0.015 ng/mL (0.000-0.040)
[2020-02-23] MEDS ORDERED: GABAPENTIN600 MG PO (15:48)
[2020-02-23] MEDS ORDERED: OXYC10TA19 PO (15:49)
[2020-02-23] MEDS ORDERED: K-Dur10 MEQ PO (15:49)
[2020-02-23] MEDS ORDERED: ZOLP5 PO (15:49)
--- NOTE | 2020-02-23 20:00 | NUR ---
ASSUMPTION OF CARE PT SLEEPING IN BED, AROUSES TO VERBAL STIMULI, ORIENTED x4, O2 SATURATIONS> 90% ON RA, MONITOR SHOWS SINUS RHYTHM WITH HR 70'S, NICARDIPINE GTT PLACED ON SB AT ASSUMPTION OF CARE, PLAN TO ADMINISTERE SCHEDULED BP MEDS AND PROVIDED PRN DIRECTED. PERITONEAL DIALYSIS IN PROGRESS, CATH SITE TO RLQ. INSULIN PUMP IN PLACE TO LLQ, PT REPORTS ABLE TO MANAGE PUMP, ORDER IN CHART FROM [facility] OKAY FOR PT TO USE WHILE IN HOSPITAL. PT DENIES /GI ISSUES, ANURIA AT BASELINE. PT MOVES ALL EXTREMETIES INDEPENDENTLY. PROVIDED PIEDAD CRACKER AND PEANUT BUTTER SNACK UPON REQUEST, PT EATS INDEPENDENTLY.
[2020-02-23] MEDS ORDERED: CYCL10 PO (21:23)
--- NOTE | 2020-02-24 00:53 | NUR ---
PT TO ICU 8 VIA RAQUEL WITH ED RN @ 2052, PT ALERT AND ORIENTED x4, REPORTS 4/10 CP/PRESSURE THAT IS WORSE WITH EXERTION. O2 SATURATIONS> 90% ON RA, MONITOR SHOWS SINUS RHYTHM WITH HR 80'S, BP STABLE. PT REPORTS DIARRHEA 02/21 BUT NO BM 02/22 DENIES FRANKIE OTHER GI/ ISSUES. PT REPORTS RECENT CHANGE IN DIURETIC MEDICATIONS D/T CHRONICALLY LOW POTASSIUM DESPITE SUPPLEMENTS WITH FUROSEMIDE. PT REPORTS APPROX 8lb WEIGHT GAIN IN PAST WEEK. IV LASIX ORDERED THIS ADMISSION, CALL PLACED TO DR MEDLEY PRIOR TO ADMINISTRATION, NEW ORDER FOR ONE TIME DOSE 40meq PO POTASSIUM. PT TOLERATING PO INTAKE, SWALLOWS PILLS WHOLE WITH WATER. PT 1 PERSON ASSIST TO BSC WITH WALKER, NOW DENIES INCREASED CP WITH EXERTION. MORPHINE x1 ADMINISTERED, MINIMALLY EFFECTIVE. NITRO SL x1, NO EFFECT FOR CP RELIEF.
[2020-02-24 04:41] LABS: Troponin I <0.015 ng/mL (0.000-0.040)
[2020-02-24 04:42] LABS: Anion Gap 7 mmol/L (6-16); Blood Urea Nitrogen 16 mg/dL (8-24); Bun/Creatinine Ratio 17.1 (12.0-20.0); CO2, Blood 28 mmol/L (21-32); Calcium, Blood 9.2 mg/dL (8.5-10.1); Chloride, Blood 105 mmol/L (98-108); Creatinine, Blood 0.94 mg/dL (0.40-1.00); Glomerular Filtration Rate >60 (60-); Glucose, Blood 150 mg/dL (70-99); Sodium, Blood 140 mmol/L (136-145)
--- NOTE | 2020-02-24 06:25 | NUR ---
SHIFT SUMMARY PT SLEPT WELL T/O NIGHT, O2 SATURATIONS>90% ON RA, MONITOR SHOWS SINUS RHYTHM WITH HR 70'S-80'S, PT HYPOTENSIVE WITH SLEEP, REMAINS AROUSABLE AND BP INCREASES TO SBP 90'S AND MAPS 70'S, PT CONTINUES TO REPORT 4/10 CP, NITRO NOT EFFECTIVE AND MORPHINE MILDLY EFFECTIVE. DISCUSSED VITALS AND CP WITH DR SMITH THIS AM, NO NEW ORDERS AT THIS TIME. CALL DOMINIQUE ORONA, PT USING APPROPRIATELY.
--- NOTE | 2020-02-24 08:00 | NUR ---
DR. BARR UPDATED ON PATIENT STATUS. INFORMED THAT PATIENT'S CHEST PAIN HAS NOT GONE UNDER 4/10. INFORMED THAT NITRO TANKS BLOOD PRESSURE SO BULK SYSTEM OPERATOR GAVE MORPHINE AND PATIENT STATED THAT IT DID HELP SOME. INFORMED THAT BULK SYSTEM OPERATOR REPORTED SBP 70S TO 80S WHILE PATIENT SLEEPING AND 90S WHEN AWAKE. NIGHT RN REPORTED THAT PATIENT ASYMPTOMATIC WITH THIS HYPOTENSION. NO ORDERS RECEIVED AT THIS TIME.
--- NOTE | 2020-02-24 08:15 | NUR ---
INITIAL ASSESSMENT PATIENT RESTING QUIETLY IN BED UPON ENTERING ROOM. PATIENT ALERT AND ORIENTED X 4, AFEBRILE. PATIENT COMPLAINING OF 4/10 LEFT CHEST PAIN THAT IS RADIATING TO LEFT SHOULDER. PATIENT REPORTS THAT PAIN IS PRESSURE/ ACHING FEELING. PATIENT ALSO COMPLAINS ABOUT CHRONIC HIP PAIN. PATIENT WEAK. 1 PA WITH FWW. PATIENT USES WALKER AT BASELINE. PATIENT SATTING 90% AND GREATER ON RA. LUNGS CLEAR THROUGHOUT. PATIENT IN SR, HR IN THE 70S. SBP IN THE 130S. SCDS PLACED. GI WNL. WNL. SCATTERED SCARS NOTED T/O PATIENT'S BODY. L BREAST DISCOLORED FROM CA TREATMENTS. NONPITTING EDEMA NOTED TO BLES. BED LOW, CALL LIGHT IN REACH. WILL CONTINUE TO MONITOR PATIENT FREQUENTLY THROUGHOUT SHIFT.
--- NOTE | 2020-02-24 08:38 | NUR ---
DR. MYERS IN TO SEE PATIENT THIS AM. IS GOING TO TAKE PATIENT TO [employer] CHIP TERRAZZO WORKER THIS AM. PATIENT NPO AT THIS TIME. STATED TO GIVE ALL AM MEDICATIONS EXCEPT LASIX.
[2020-02-24 10:27] LABS: International Normalized Ratio 0.96; Prothrombin Time Results 10.3 Sec (9.7-11.5)
--- NOTE | 2020-02-24 10:57 | NUR ---
PATIENT TAKEN TO LONG CHAIN BEAMER.
--- NOTE | 2020-02-24 15:08 | NUR ---
PATIENT BACK FROM COREMAKER MACHINE AT 1300. PATIENT HAS TR BAND IN PLACE TO R RADIAL. 13 CC AIR INSTILLED PER COREMAKER MACHINE RN. ARMBOARD IN PLACE. HAND COOL. NO BLEEDING, BRUISING, HEMATOMA NOTED AT RADIAL SITE.
--- NOTE | 2020-02-24 15:42 | NUR ---
2 CC AIR DEFLATED FROM R RADIAL TR BAND. SITE REMAINS STABLE, WITH NO CHANGES. NO BLEEDING, BRUISES, OR HEMATOMA NOTED.
--- NOTE | 2020-02-24 15:52 | NUR ---
2 CC AIR DEFLATED FROM R RADIAL TR CUFF. SITE REMAINS STABLE. NO BLEEDING, BRUISING, HEMATOMA NOTED. WILL CONTINUE TO MONITOR.
--- NOTE | 2020-02-24 16:10 | NUR ---
2 CC AIR DEFLATED FROM TR BAND. NO BLEEDING, BRUISING, HEMATOMA NOTED. WILL CONTINUE TO MONITOR.
--- NOTE | 2020-02-24 16:15 | NUR ---
PATIENT GIVEN PRN PAIN MEDICATION FOR COMPLAINT OF CHEST PAIN AND CHRONIC HIP PAIN. PATIENT AFEBRILE. HR IN THE 60S. SBP 1-TEENS TO 120S. AIR BEING SLOWLY DEFLATED FROM R RADIAL TR BAND. SITE REMAINS STABLE WITH NO BLEEDING, BRUISING, OR HEMATOMA NOTED. ARMBOARD IN PLACE. NO OTHER ACUTE CHANGES TO NOTE ON AT THIS TIME. WILL CONTINUE TO MONITOR.
--- NOTE | 2020-02-24 16:20 | NUR ---
2 CC AIR DEFLATED. REMAIN STABLE. NO BLEEDING, BRUISING, HEMATOMA NOTED. WILL CONTINUE TO MONITOR.
--- NOTE | 2020-02-24 16:31 | NUR ---
2 CC AIR DEFLATED FROM TR BAND. SITE REMAINS STABLE. NO BLEEDING, BRUISING, HEMATOMA NOTED. WILL CONTINUE TO MONITOR.
--- NOTE | 2020-02-24 16:44 | NUR ---
TR BAND COMPLETELY DEFLATED. TR BAND AND ARMBOARD REMAIN IN PLACE. NO BLEEDING, BRUISING, HEMATOMA TO NOTE ON. WILL CONTINUE TO MONITOR.
--- NOTE | 2020-02-24 18:53 | NUR ---
SHIFT SUMMARY PATIENT REMAINED CALM, COOPERATIVE AND PLEASANT. PATIENT REMAINED ALERT AND ORIENTED X 4. PATIENT REMAINED AFEBRILE. PATIENT GIVEN PRN MORPHINE AND OXYCODONE FOR COMPLAINTS OF CHRONIC HIP PAIN AND CHEST PAIN. CHEST PAIN DID NOT GET UNDER 4/10 THIS SHIFT AND REMAINS CONSTANT. PATIENT 1 PERSON ASSIST TO BSC WITH FWW. PATIENT HAS REMAINED SATTING 90% AND GREATER ON RA. LUNGS CLEAR THROUGHOUT. PATIENT IN SR, HR 60S TO 80S. SBP 90S TO 160S. SCDS IN PLACE. NO BM THIS SHIFT. PATIENT HAD GOOD APPETITE. PATIENT HAD GOOD URINARY OUTPUT. PATIENT GIVEN LASIX AND SPIRINOLACTONE THIS SHIFT. PATIENT TAKEN TO BOILERMAKER LOFTSMAN. NO INTERVENTIONS PERFORMED. TR BAND REMAINS IN PLACE TO R RADIAL SITE. TR BAND COMPLETELY DEFLATED. ARMBOARD REMAINS IN PLACE. NO BLEEDING, BRUISING, OR HEMATOMA NOTED AT THIS TIME. IVS SALINE LOCKED. ECHO PERFORMED THIS SHIFT. GI CONSULTED ON PATIENT FOR HIATAL HERNIA SEEN ON CT. PATIENT HAS NO COMPLAINTS AT THIS TIME. BED LOW, CALL LIGHT IN REACH. WILL BE GIVING REPORT TO ONCOMING INDUSTRIAL SERVICE TECHNICIAN NURSE SHORTLY.
--- NOTE | 2020-02-24 20:18 | NUR ---
CARE ASSUMED CARE AND REPORT ASSUMED FROM LYNN QUINTANA. PT SITTING UPRIGHT IN BED WATCHING TV. SHE IS A/O X 3, CALM AND COOPERATIVE. C/O PAIN TO HIPS AND CHEST; CHEST 4/10. OXYCODONE GIVEN FOR PAIN CONTROL. VSS. NSR, HR 70S AND BP WNL. AFEBRILE. TR BAND REMOVED AND CLOTH DOT DRESSING APPLIED OVER R RADIAL SITE. NO ACTIVE BLEEDING; NO HEMATOMA. ARMBOARD SECURED. PT AWARE OF NEED TO HAVE LIMITED USE AND ROM TO ARM. IV SALINE LOCKED. WILL CONTINUE TO MONITOR.
--- NOTE | 2020-02-24 23:09 | NUR ---
REASSESSMENT PT COMPLAINS OF CHEST PAIN THAT HAS INCREASED TO 5/10. MORPHINE 5 MG IVP GIVEN ALONG WITH GI COCKTAIL. VSS. AFEBRILE. WILL MONITOR PTS PAIN AND RESPONSE TO MEDICATION. AMBIEN GIVEN PER PT REQUEST FOR SLEEP. WILL CONTINUE TO MONITOR.
--- NOTE | 2020-02-25 05:17 | NUR ---
SHIFT SUMMARY NO SIGNIFICANT EVENTS DURING SHIFT. R RADIAL SITE REMAINED CLEAN AND DRY WITH NO SURROUNDING HEMATOMA. PT WAS GIVEN OXYCODONE DOSES X2 AND MORPHINE X1 NEEDED FOR PAIN. UP TO BEDSIDE COMMODE WITH 1 ASSIST AND USE OF WALKER. WAS ABLE TO TURN HERSELF IN BED. VSS ENTIRE SHIFT. REMAINED IN NSR. WILL GIVE BEDSIDE, HANDOFF REPORT TO DAY RN.
[2020-02-25 05:40] LABS: Anion Gap 7 mmol/L (6-16); Blood Urea Nitrogen 18 mg/dL (8-24); Bun/Creatinine Ratio 21.6 (12.0-20.0); CO2, Blood 27 mmol/L (21-32); Calcium, Blood 9.1 mg/dL (8.5-10.1); Chloride, Blood 104 mmol/L (98-108); Creatinine, Blood 0.84 mg/dL (0.40-1.00); Glomerular Filtration Rate >60 (60-); Glucose, Blood 124 mg/dL (70-99); Magnesium, Blood 2.3 mg/dL (1.6-2.4); Potassium, Blood 4.1 mmol/L (3.5-5.5); Sodium, Blood 138 mmol/L (136-145)
--- NOTE | 2020-02-25 07:30 | NUR ---
REC'D REPORT FROM MARIANO CRANDALL AND AM NOW ASSUMING CARE OF THIS PT.
--- NOTE | 2020-02-25 07:44 | NUR ---
AM ASSESSMENT: PT IS ALERT AND ORIENTED X3. PLEASANT AND COOPERATIVE WITH CARE. PT REPORTS PAIN IN BILATERAL HIPS (CHRONIC) AND CHEST PRESSURE IN LT SIDE OF CHEST, THAT EXTENDS UP LT NECK. PT DENIES IT RADIATING ANYWHERE ELSE. NO NAUSEA OR OTHER CARDIAC SYMPTOMS AT THIS TIME. PT MEDICATED WITH MORPHINE IV, PER ORDERS. PT ABLE TO MOVE SELF IN CALL. CALL LIGHT IN REACH AND PT ABLE TO CALL APPROPRIATELY. LUNGS ARE CLEAR T/O BILATERAALLY. SP02 >90% ON RA. HR REGULAR, 70'S RANGE. 2+ NON-PITTING EDEMA IN BILATERAL LE'S. ABD SOFT/ROUND/NON-TENDER X4'S. PT VOIDS PER TOILET. -FULL CODE STATUS -PCU STATUS, WILL TNX WHEN A BED IS AVAILABLE.
--- NOTE | 2020-02-25 08:39 | NUR ---
DR MAN IN TO ASSESS PT. DISCUSSED POTENTIAL DISCHARGE. SEE ANY NEW ORDERS.
--- NOTE | 2020-02-25 10:30 | NUR ---
PT MEDICATED WITH OXYCODONE, PT'S PAIN BACK UP TO A 7/.
--- NOTE | 2020-02-25 16:30 | NUR ---
Per admit trigger, I met with pt and spouse to offer encouragement and prayer. I met with outside of room, and listened to long stories about Denisa's mathews with cancer and cardiac problems. 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 This is very much a "team." Provided prayer for Denisa at bedside and she became tearful. She tells me she is hopeful for some answers and recovery. She apears to be processing her multiple illnesses appropriately. She will benefit from continued spiritual camp counselor/prayer. I will see Denisa as case-load permits.
--- NOTE | 2020-02-25 19:00 | NUR ---
SHIFT SUMMARY: PT REPORTS CONTINUED LT SIDED CHEST PRESSURE T/O SHIFT. MORPHINE IV AND PO OXYCODONE HAVE PROVED HELPFUL IN REDUCING PAIN FROM 7-8/10 TO 5-6/10. PT ALSO HAS CHRONIC PAIN, SHE HAS HAD 5 BILATERAL KNEE SURGERIES AND HAS SEVERE ARTHRITIS IN BILATERAL HIPS. PT ABLE TO MOVE AROUND IN BED AND ASSIST WITH REPOSITIONING. CAN TNX TO BSC WITH FWW/1 PERSON ASSIST. GAIT IS SLOW AND STEADY. LUNGS ARE CLEAR T/O, SLIGHTLY DIMINISHED IN BILATERAL BASES. SP02>90% ON RA. HR REGULAR, SR 70-80'S RANGE. 1-2 + LE NON-PITTING EDEMA. PIV'S SL'D. ABD SOFT/ROUND/NON-TENDER. PT W/ GOOD APPETITE ON CARDIAC DIET. PT WITH GOOD DIURETIC EFFECT FROM PO DIURETICS (CHANGED FROM IV LASIX TODAY). -PCU STATUS, WILL TNX WHEN BED IS AVAILABLE VS POSSIBLE D/C HOME TOMORROW. -FULL CODE STATUS
--- NOTE | 2020-02-25 19:32 | NUR ---
ASSESSMENT/ASSUMED CARE PT SITTING UP IN BED WATCHING TV. REPORTS PAIN 5/10 AFTER MORPHINE. STATES,"IT IS MORE THE HIP PAIN THAN ANYTHING". LUNGS CLEAR ON ROOMAIR. RESP EVEN AND NONLABORED. DENIES SOB OR COUGH. HEART RATE REGULAR. BP STABLE. 2+ EDEMA TO LOWER EXT. BT+ ABD SOFT AND NONTENDER. TR SITE TO RIGHT WRIST STABLE. ARM BOARD ON. IV TO BILAT AC'S CLEAR, FLUSHED WITHOUT DIFFICULTY. PT MOVING SELF IN BED.
--- NOTE | 2020-02-25 19:34 | NUR ---
REPORTED OFF TO MARIANO LONG AND SHE IS NOW ASSUMING CARE OF THIS PATIENT.
--- NOTE | 2020-02-25 21:06 | NUR ---
PAIN MED PT SITTING UP IN BED, BACK FROM BATHROOM. HS MEDS GIVEN. REPORTS PAIN 6/10 TO HIPS AND 4/10 TO CHEST. MED WITH OXYCODONE. PT GIVEN JELLO. STATES,"I'LL WAIT ON MY AMBIEN FOR NOW".
--- NOTE | 2020-02-25 23:19 | NUR ---
PAIN PT AWAKE, MOVING AND TURNING SELF IN BED. C/O HIP PAIN 11/22, MED WITH MORPHINE WITH GOOD RESULTS. VSS.
--- NOTE | 2020-02-26 03:23 | NUR ---
PAIN PT AWAKE, C/O HIP PAIN. MED WITH OXYCODONE. PT UP TO BSC WITH WALKER AND STANDBY ASSIST. VOIDED THAN BACK TO BED. VSS.
[2020-02-26 04:07] LABS: Anion Gap 6 mmol/L (6-16); Blood Urea Nitrogen 21 mg/dL (8-24); Bun/Creatinine Ratio 21.4 (12.0-20.0); CO2, Blood 29 mmol/L (21-32); Calcium, Blood 8.9 mg/dL (8.5-10.1); Chloride, Blood 102 mmol/L (98-108); Creatinine, Blood 0.98 mg/dL (0.40-1.00); Glomerular Filtration Rate >60 (60-); Glucose, Blood 125 mg/dL (70-99); Magnesium, Blood 2.1 mg/dL (1.6-2.4); Potassium, Blood 4.1 mmol/L (3.5-5.5); Sodium, Blood 137 mmol/L (136-145)
--- NOTE | 2020-02-26 05:35 | NUR ---
SHIFT SUMMARY PT RESTING QUIETLY. MED WITH MORPHINE AND OXYCODONE DURING THE NIGHT FOR C/O HIP AND CHEST PAIN. PT STATES,"IT IS MORE HIP PAIN THAN CHEST". PT UP TO BSC WITH WALKER AND STANDBY ASSIST. VOIDING CLEAR YELLOW URINE. RIGHT WIRST WITH ARM BOARD ON. TR SITE CLEAR, NO BLEEDING OR HEMATOMA. VSS. NO ACUTE CHANGE. REPORT TO ON COMING NURSE
[2020-02-26] MEDS ORDERED: XARELTO20 MG PO (10:09)
[2020-02-26] MEDS ORDERED: METO50ER PO (10:09)
[2020-02-26] MEDS ORDERED: Isosorbide Mono30 MG PO (10:10)
[2020-02-26] MEDS ORDERED: OMEP20ER PO (10:11)
[2020-02-26] MEDS ORDERED: SUCR1 PO (10:12)
--- NOTE | 2020-02-26 11:32 | NUR ---
DISCHARGE PT DISCHARGED TO HOME WITH VIA PRIVATE VEHICLE. MEDICATIONS CLARIFIED WITH DR. MAN BEFORE DISCHARGE. PT GIVEN DISCHARGE INSTRUCTIONS REGARDING MEDS, FOLLOW UP APPTS, AND ACTIVITY RESTRICTIONS WITH R RADIAL ANGIO. PT VERBALIZED UNDERSTANDING. PT REQUESTED TO MAKE HER OWN PCP FOLLOW UP SO SHE COORDINATE IT WITH OTHER APPOINTMENTS SHE HAS. ALL QUESTIONS WERE ANSWERED. ALL BELONGINGS SENT HOME WITH PT.
[2020-02-26] MEDS ORDERED: ELIQUIS5 MG PO (11:35)
== END 2020-02-26 11:24 | disposition home or self-care (01) | DRG 286 ==
LOC: ER 10:19 → ICUE 10:20 → ICUW 10:20 → ICUE 19:53
PROVIDERS: Emergency Medicine; Internal Medicine Cardiovascular Disease; Internal Medicine Interventional Cardiology; Student in an Organized Health Care Education/Training Program; ADMIT Family Medicine
PROC: 4A023N7 Measurement of Cardiac Sampling and Pressure, Left Heart, Percutaneous Approach (ICD-10-PCS; principal; 2020-02-24)
PROC: B2111ZZ Fluoroscopy of Multiple Coronary Arteries using Low Osmolar Contrast (ICD-10-PCS; 2020-02-24)
PROC: 4A033BC Measurement of Arterial Pressure, Coronary, Percutaneous Approach (ICD-10-PCS; 2020-02-24)
DX: I25.110 Atherosclerotic heart disease of native coronary artery with unstable angina pectoris (principal); I50.33 Acute on chronic diastolic (congestive) heart failure; I50.22 Chronic systolic (congestive) heart failure; Z95.5 Presence of coronary angioplasty implant and graft; Z20.828 Contact with and (suspected) exposure to other viral communicable diseases; I48.0 Paroxysmal atrial fibrillation; I25.2 Old myocardial infarction; K44.9 Diaphragmatic hernia without obstruction or gangrene; K21.9 Gastro-esophageal reflux disease without esophagitis; E78.5 Hyperlipidemia, unspecified; E87.6 Hypokalemia; I11.0 Hypertensive heart disease with heart failure; M19.90 Unspecified osteoarthritis, unspecified site; E03.9 Hypothyroidism, unspecified; R19.7 Diarrhea, unspecified; R79.89 Other specified abnormal findings of blood chemistry; Z86.73 Personal history of transient ischemic attack (TIA), and cerebral infarction without residual deficits; Z79.899 Other long term (current) drug therapy; Z79.01 Long term (current) use of anticoagulants; Z79.02 Long term (current) use of antithrombotics/antiplatelets; Z99.81 Dependence on supplemental oxygen; Z88.1 Allergy status to other antibiotic agents; Z88.5 Allergy status to narcotic agent; Z88.8 Allergy status to other drugs, medicaments and biological substances; Z95.2 Presence of prosthetic heart valve; Z85.3 Personal history of malignant neoplasm of breast
CPT/HCPCS: 36415; 71045; 71260; 76937; 80048; 80053; 83735; 83880; 84100; 84484; 85025; 85347; 85379; 85610; 85730; 93005; 93010; 93306; 93454; 93571; 93572; 96374; 96375; 96376; 99152; 99153; 99285-25; A9270; A9270-GY; C1725; C1769; C1887; C1894; G0378; J1644; J1940; J2250; J2270; J7030; J7050; Q9967; U0003

== ENCOUNTER → 2020-03-16 | Outpatient (CLI) | payer BC, OTHER ==
[~2020-03-16] MED LIST changes: +ALDACTONE100 MG PO; +GABAPENTIN600 MG PO; +Isosorbide Mono30 MG PO; +K-Dur10 MEQ PO; +LETR2.5 PO; +LEVSOD25 PO; +SUCR1 PO; +TORSE20 PO; +Vitamin D2000 UNIT PO; +XARELTO20 MG PO
== END | disposition home or self-care (01) ==
LOC: LAB EV 10:30 → LAB SHORT 10:30
DX: N39.0 Urinary tract infection, site not specified (principal)
CPT/HCPCS: 87077; 87086; 87186

== ENCOUNTER 2020-05-23 17:34 | Emergency (ER) | payer BC, SELFPAY ==
[~2020-05-23] VITALS: Ht 167.6 cm; Wt 89.8 kg
[~2020-05-23 17:34] MED LIST changes: -ALBU90OI INH; -ALDACTONE100 MG PO; -CENTRUM SILVER1 EAC2 PO; -Docusate Sodiu100 M1 PO; -GABAPENTIN600 MG PO; -Isosorbide Mono30 MG PO; -LETR2.5 PO; -LEVSOD25 PO; -OYSTER SHELL 51 EACH PO; -Plavix75 MG PO; -TORSE20 PO
[2020-05-23 18:39] LABS: BASOPHILS ABSOLUTE AUTO 0.04 K/mm3 (0.00-0.23); BASOPHILS PERCENT AUTO 1 % (0-2); EOSINOPHILS ABSOLUTE AUTO 0.12 K/mm3 (0.00-0.68); EOSINOPHILS PERCENT AUTO 2 % (0-6); Hematocrit 38.1 % (33.0-51.0); Hemoglobin 13.3 g/dL (11.5-16.0); IMMATURE GRAN ABSOLUTE AUTO 0.03 K/mm3 (0.00-0.10); IMMATURE GRAN PERCENT AUTO 0 % (0-1); LYMPHOCYTES ABSOLUTE AUTO 2.84 K/mm3 (0.84-5.20); LYMPHOCYTES PERCENT AUTO 39 % (21-46); MONOCYTES PERCENT AUTO 10 % (4-13); Mean Corpuscular HGB 35.8 pg (26.0-34.0); Mean Corpuscular HGB Conc 34.9 g/dL (31.5-36.5); Mean Corpuscular Volume 103 fL (80-100); Mean Platelet Volume 8.7 fL (9.1-12.4); NEUTROPHILS ABSOLUTE AUTO 3.49 K/mm3 (1.96-9.15); NEUTROPHILS PERCENT AUTO 48 % (41-73); Platelet Count 273 K/mm3 (150-400); RDW Coefficient Variation 13.2 % (11.7-14.2); RDW Standard Deviation 50.3 fL (35.1-46.3); Red Blood Cell Count 3.71 M/mm3 (3.80-5.20); White Blood Cell Count 7.22 K/mm3 (4.00-11.30)
[2020-05-23 19:01] LABS: Alanine Aminotransfer (ALT/SGP 51 U/L (12-78); Albumin, Blood 3.8 g/dL (3.4-5.0); Albumin/Globulin Ratio 0.9 (0.8-1.8); Alk Phos 117 U/L (50-136); Anion Gap 16 mmol/L (6-16); Aspartate Aminotrans (AST/SGOT 47 U/L (12-37); Bilirubin, Total 0.5 mg/dL (0.1-1.0); Blood Urea Nitrogen 22 mg/dL (8-24); Bun/Creatinine Ratio 30.4 (12.0-20.0); CO2, Blood 19 mmol/L (21-32); Calcium, Blood 9.4 mg/dL (8.5-10.1); Chloride, Blood 103 mmol/L (98-108); Creatinine, Blood 0.72 mg/dL (0.40-1.00); Globulin, Blood 4.1 g/dL (2.2-4.0); Glomerular Filtration Rate >60 (60-); Glucose, Blood 152 mg/dL (70-99); Sodium, Blood 138 mmol/L (136-145); Total Protein, Blood 7.9 g/dL (6.4-8.2); Troponin I <0.015 ng/mL (0.000-0.040)
== END 2020-05-23 22:50 | disposition home or self-care (01) ==
LOC: ER 17:34
PROVIDERS: Emergency Medicine
DX: R07.9 Chest pain, unspecified (principal); I48.0 Paroxysmal atrial fibrillation; I25.10 Atherosclerotic heart disease of native coronary artery without angina pectoris; K21.9 Gastro-esophageal reflux disease without esophagitis; I11.0 Hypertensive heart disease with heart failure; I50.42 Chronic combined systolic (congestive) and diastolic (congestive) heart failure; I25.2 Old myocardial infarction; Z79.01 Long term (current) use of anticoagulants; Z79.899 Other long term (current) drug therapy; Z79.02 Long term (current) use of antithrombotics/antiplatelets; Z88.5 Allergy status to narcotic agent; Z88.1 Allergy status to other antibiotic agents; Z91.030 Bee allergy status; Z88.8 Allergy status to other drugs, medicaments and biological substances; Z88.6 Allergy status to analgesic agent; Z86.73 Personal history of transient ischemic attack (TIA), and cerebral infarction without residual deficits; Z95.5 Presence of coronary angioplasty implant and graft
CPT/HCPCS: 71260; 80053; 83880; 84484; 85025; 93005; 93010; 96374-59; 96375-59; 99285-25; J2060; J2270; Q9967

== ENCOUNTER 2020-06-10 12:08 | Emergency (ER) | payer BC, SELFPAY ==
[~2020-06-10] VITALS: Ht 167.6 cm; Wt 91.2 kg
[2020-06-10 13:39] LABS: BASOPHILS ABSOLUTE AUTO 0.04 K/mm3 (0.00-0.23); BASOPHILS PERCENT AUTO 1 % (0-2); EOSINOPHILS ABSOLUTE AUTO 0.12 K/mm3 (0.00-0.68); EOSINOPHILS PERCENT AUTO 2 % (0-6); Hematocrit 39.6 % (33.0-51.0); Hemoglobin 13.3 g/dL (11.5-16.0); IMMATURE GRAN ABSOLUTE AUTO 0.04 K/mm3 (0.00-0.10); IMMATURE GRAN PERCENT AUTO 1 % (0-1); LYMPHOCYTES ABSOLUTE AUTO 1.62 K/mm3 (0.84-5.20); LYMPHOCYTES PERCENT AUTO 22 % (21-46); MONOCYTES ABSOLUTE AUTO 0.73 K/mm3 (0.16-1.47); MONOCYTES PERCENT AUTO 10 % (4-13); Mean Corpuscular HGB 35.8 pg (26.0-34.0); Mean Corpuscular HGB Conc 33.6 g/dL (31.5-36.5); Mean Corpuscular Volume 107 fL (80-100); Mean Platelet Volume 8.7 fL (9.1-12.4); NEUTROPHILS ABSOLUTE AUTO 4.78 K/mm3 (1.96-9.15); NEUTROPHILS PERCENT AUTO 65 % (41-73); Platelet Count 263 K/mm3 (150-400); RDW Coefficient Variation 13.6 % (11.7-14.2); RDW Standard Deviation 53.4 fL (35.1-46.3); Red Blood Cell Count 3.71 M/mm3 (3.80-5.20); White Blood Cell Count 7.33 K/mm3 (4.00-11.30)
[2020-06-10 14:04] LABS: Alanine Aminotransfer (ALT/SGP 42 U/L (12-78); Albumin, Blood 4.1 g/dL (3.4-5.0); Alk Phos 109 U/L (50-136); Anion Gap 11 mmol/L (6-16); Aspartate Aminotrans (AST/SGOT 38 U/L (12-37); Bilirubin, Total 1.1 mg/dL (0.1-1.0); Blood Urea Nitrogen 26 mg/dL (8-24); Bun/Creatinine Ratio 29.5 (12.0-20.0); CO2, Blood 24 mmol/L (21-32); Calcium, Blood 9.5 mg/dL (8.5-10.1); Chloride, Blood 103 mmol/L (98-108); Creatinine, Blood 0.88 mg/dL (0.40-1.00); Globulin, Blood 4.1 g/dL (2.2-4.0); Glomerular Filtration Rate >60 (60-); Glucose, Blood 120 mg/dL (70-99); Potassium, Blood 3.5 mmol/L (3.5-5.5); Sodium, Blood 138 mmol/L (136-145); Total Protein, Blood 8.2 g/dL (6.4-8.2); Troponin I <0.015 ng/mL (0.000-0.040)
[2020-06-10] MEDS ORDERED: SPIR25 PO (14:36)
[2020-06-10] MEDS ORDERED: ALBU90OI INH (14:36)
[2020-06-10] MEDS ORDERED: METO50ER PO (14:37)
[2020-06-10] MEDS ORDERED: LEVSOD75 PO (14:38)
[2020-06-10] MEDS ORDERED: ROXICODONE15 MG PO (14:38)
[2020-06-10] MEDS ORDERED: ZOLP5 PO (14:39)
[2020-06-10] MEDS ORDERED: ISOSORBIDE MONO60 MG PO (14:40)
[2020-06-10] MEDS ORDERED: ELIQUIS5 MG PO (14:40)
[2020-06-10] MEDS ORDERED: GABA300 PO (14:43)
[2020-06-10] MEDS ORDERED: TORSE20 PO (14:44)
[2020-06-10] MEDS ORDERED: LETR2.5 PO (14:45)
[2020-06-10] MEDS ORDERED: CYCL10 PO (14:45)
[2020-06-10] MEDS ORDERED: PANTOPRAZOLE SO40 M2 PO (14:46)
[2020-06-10] MEDS ORDERED: Plavix75 MG PO (14:47)
[2020-06-10] MEDS ORDERED: ATOR80 PO (14:47)
[2020-06-10] MEDS ORDERED: Docusate Sodiu100 M1 PO (15:37)
[2020-06-10] MEDS ORDERED: MULVITA PO (15:38)
[2020-06-10] MEDS ORDERED: CALCIUM 600 +1 EAC7 PO (15:40)
[2020-06-10] MEDS ORDERED: NITR.4SL SL (15:41)
== END 2020-06-10 17:00 | disposition home or self-care (01) ==
LOC: ER 12:08
PROVIDERS: Emergency Medicine
DX: R07.9 Chest pain, unspecified (principal); I25.10 Atherosclerotic heart disease of native coronary artery without angina pectoris; I48.91 Unspecified atrial fibrillation; Z79.899 Other long term (current) drug therapy; Z79.02 Long term (current) use of antithrombotics/antiplatelets; Z88.4 Allergy status to anesthetic agent; Z88.8 Allergy status to other drugs, medicaments and biological substances; Z88.5 Allergy status to narcotic agent; Z88.1 Allergy status to other antibiotic agents; Z91.030 Bee allergy status; Z79.01 Long term (current) use of anticoagulants
CPT/HCPCS: 36415; 71045; 80053; 83880; 84484; 85025; 93005; 93010; 99285-25; J2270; J2405

== ENCOUNTER 2020-09-07 10:23 | Observation (INO) | payer BC ==
[~2020-09-07] VITALS: Ht 167.6 cm; Wt 94.2 kg
[~2020-09-07 10:23] MED LIST changes: +ALBU90OI INH; +CALCIUM 600 +1 EAC7 PO; +Docusate Sodiu100 M1 PO; +ISOSORBIDE MONO60 MG PO; +LETR2.5 PO; +LEVSOD75 PO; +MULVITA PO; +PANTOPRAZOLE SO40 M2 PO; +Plavix75 MG PO; +ROXICODONE15 MG PO; +SPIR25 PO; +TORSE20 PO
[2020-09-07 10:53] LABS: BASOPHILS ABSOLUTE AUTO 0.04 K/mm3 (0.00-0.23); BASOPHILS PERCENT AUTO 1 % (0-2); EOSINOPHILS ABSOLUTE AUTO 0.03 K/mm3 (0.00-0.68); EOSINOPHILS PERCENT AUTO 0 % (0-6); Hematocrit 39.4 % (33.0-51.0); Hemoglobin 13.7 g/dL (11.5-16.0); IMMATURE GRAN ABSOLUTE AUTO 0.02 K/mm3 (0.00-0.10); IMMATURE GRAN PERCENT AUTO 0 % (0-1); LYMPHOCYTES ABSOLUTE AUTO 2.18 K/mm3 (0.84-5.20); LYMPHOCYTES PERCENT AUTO 28 % (21-46); MONOCYTES ABSOLUTE AUTO 0.53 K/mm3 (0.16-1.47); MONOCYTES PERCENT AUTO 7 % (4-13); Mean Corpuscular HGB 34.6 pg (26.0-34.0); Mean Corpuscular HGB Conc 34.8 g/dL (31.5-36.5); Mean Corpuscular Volume 100 fL (80-100); Mean Platelet Volume 9.1 fL (9.1-12.4); NEUTROPHILS ABSOLUTE AUTO 4.87 K/mm3 (1.96-9.15); NEUTROPHILS PERCENT AUTO 64 % (41-73); Platelet Count 267 K/mm3 (150-400); RDW Coefficient Variation 12.1 % (11.7-14.2); RDW Standard Deviation 43.8 fL (35.1-46.3); Red Blood Cell Count 3.96 M/mm3 (3.80-5.20); White Blood Cell Count 7.67 K/mm3 (4.00-11.30)
[2020-09-07 11:07] LABS: Alanine Aminotransfer (ALT/SGP 22 U/L (12-78); Albumin, Blood 3.6 g/dL (3.4-5.0); Albumin/Globulin Ratio 0.9 (0.8-1.8); Alk Phos 113 U/L (50-136); Anion Gap 7 mmol/L (6-16); Aspartate Aminotrans (AST/SGOT 21 U/L (12-37); Bilirubin, Total 0.7 mg/dL (0.1-1.0); Blood Urea Nitrogen 11 mg/dL (8-24); CO2, Blood 30 mmol/L (21-32); Calcium, Blood 9.9 mg/dL (8.5-10.1); Chloride, Blood 99 mmol/L (98-108); Creatinine, Blood 0.65 mg/dL (0.40-1.00); Globulin, Blood 4.2 g/dL (2.2-4.0); Glomerular Filtration Rate >60 (60-); Glucose, Blood 150 mg/dL (70-99); Potassium, Blood 3.4 mmol/L (3.5-5.5); Sodium, Blood 136 mmol/L (136-145); Total Protein, Blood 7.8 g/dL (6.4-8.2); Troponin I 0.016 ng/mL (0.000-0.040)
[2020-09-07 12:33] LABS: International Normalized Ratio 0.95; Prothrombin Time Results 10.3 Sec (9.7-11.5)
--- NOTE | 2020-09-07 19:26 | NUR ---
PT ADMIT TO ER AT 1755. ABLE TO TRANSFER FROM BED TO [facility] VIA SBA. USING WALKER AT BASELINE. ON ROOM AIR SATING ABOVE 94%. TELE SHOWING SINUS TACH WITH HR 100-110'S. CHEST PAIN UPON ARRIVAL AT 10. DESCRIBED PRESSURE RADIATING TO HER RIGHT ARM. DENIED NEED FOR MORPHINE AT THIS TIME. LUNGS SOUNDING CLEAR, ABLE TO EAT DINNER. CHEST PAIN INCREASED TO 6/10 AND MORPHINE AND ZOFRAN GIVEN FOR MODERATE NAUSEA. HEPARIN INFUSING. NEURO WNL. VITAL SIGNS STABLE. REPORTED OFF TO CAKE WRINGER RN.
[2020-09-07] MEDS ORDERED: ZOLP5 PO (20:25)
--- NOTE | 2020-09-07 20:30 | NUR ---
CALLED [facility] STORAGE ADMINISTRATOR REGARDING PT'S CHEST PAIN 09/22. STORAGE ADMINISTRATOR WILL PUT ORDERS IN.
--- NOTE | 2020-09-07 23:32 | NUR ---
CALLED [facility] MANAGER BUDGET REGARDING PT'S CHEST PAIN. ORDERED CHANGE ON MORPHINE AT Q2 2-4MG AND IF NEEDED CAN CHANGE TO Q2 4-8MG.
[2020-09-08 04:26] LABS: Anion Gap 4 mmol/L (6-16); Blood Urea Nitrogen 13 mg/dL (8-24); Bun/Creatinine Ratio 15.1 (12.0-20.0); CO2, Blood 34 mmol/L (21-32); Calcium, Blood 8.7 mg/dL (8.5-10.1); Chloride, Blood 98 mmol/L (98-108); Creatinine, Blood 0.86 mg/dL (0.40-1.00); Glomerular Filtration Rate >60 (60-); Glucose, Blood 121 mg/dL (70-99); Potassium, Blood 3.4 mmol/L (3.5-5.5); Sodium, Blood 136 mmol/L (136-145)
--- NOTE | 2020-09-08 05:39 | NUR ---
SHIFT SUMMARY PT IS ALERT AND ORIENTED WITH NO ACUTE CHANGES. VITALS ARE STABLE. PT REPORTS 5/10 CHEST PAIN AND HAS BEEN MEDICATED WITH MORPHINE. PT STS THAT NITRO DOES NOT WORK TO RELIVE PAIN. PT IS ON ROOM AIR WITH SATS ABOVE 92%, DENIES SOB. AMBULATES SBA TO THE BATHROOM. HEPARIN INFUSING.
--- NOTE | 2020-09-08 17:57 | NUR ---
SHIFT SUMMARY NO ACUTE CHANGES NOTED THROUGH THE DAY. PT REMAINS A&O X4, VSS, ON ROOM AIR. PT C/O CP 5/10, 4 MG IV MORPHINE GIVEN PRN FOR THE PAIN, PT IS TOLERATING PO INTAKE, & VOIDING WNL. SHE IS A STAND BY ASSIST TO THE BTAHROOM USING FWW. PT IS CURRENTLY WAITING FOR A ROOM IN [place] FOR FURTHER INTERVENTION, SHE UNDERSTANDS THE HOSPITAL IS FULL AND IS BEING PATIENT. WCTM & REPORT TO RAZ RN. CALL LIGHT IN REACH, SITTING UP IN BED EATING DINNER AT THIS TIME.
--- NOTE | 2020-09-09 05:14 | NUR ---
SHIFT SUMMARY PT IS ALERT AND ORIENTED. PT'S VITALS ARE STABLE WITH NO ACUTE CHANEGS. DENIES SOB. PT HAS SLEPT WELL THROUGHT THE NIGHT. SHE IS A SBA TO THE BATHROOM WITH A WALKER. HEPARIN INFUSING. USES CALL LIGHT APPROPRIETLY.
--- NOTE | 2020-09-09 12:41 | NUR ---
UDPATE OXYCODONE 15 MG PULLED FROM [place] AND SCANNED, SEE EMAR. MEDICATION PUT INTO MEDICATION CUP AND GIVEN TO PT. PT STATES TO SEE ONLY 2/3 OXYCODONE PILLS. ANOTHER RN PULLED INTO ROOM. SEES ALL 3 OXYCODONE'S SCANNED. LOOKED T/O GARBAGE, FLOOR AND BEDDING. CANNOT FIND THE ONE OXYCODONE THAT WAS DROPPED OR MISPLACED. PT DOES NOT BELIEVE SHE TOOK THE ONE PILL AND LEFT OTHER 2 PILLS IN THE CUP. CLINICAL COORDINATOR INFORMED OF SITUATION. WILL ASSIST PT WITH ADMINISTERING PO NARCOTIC MEDICATIONS.
[2020-09-09 15:16] LABS: Mean Platelet Volume 8.9 fL (9.1-12.4); Platelet Count 238 K/mm3 (150-400)
--- NOTE | 2020-09-09 18:41 | NUR ---
SHIFT SUMMARY PT ALERT AND ORIENTED X 4. HR STABLE. BP STABLE. PT REPORTS CHEST PAIN THAT INCREASES WITH EXERTION. PHYSICIAN AWARE. MEDICATED PER EMAR. PT REPORTS RELIEF. PT SBA TO BATHROOM. HEPARIN GTT, SEE EMAR. PT WAITING COBRA TRANSFER TO [place]. NO BED'S AVAILABLE THIS SHIFT. OXYGEN SATURAITON MAINTAINED ABOVE 92% ON RA. WILL CONTINUE TO MONITOR UNTIL REPORT GIVEN TO NIGHTSHIFT RN.
--- NOTE | 2020-09-10 05:47 | NUR ---
SHIFT SUMMARY PT ALERT AND ORIENTED X4. VSS. PATIENT RESTED WELL T/O SHIFT. PT C/O WORSENING CHEST PAIN UPON EXERTION. MEDICATED PER EMAR. DENIES SOB. PT MAINTAINED O2 SATURATION IN MID 90'S ON ROOM AIR. AWAITING COBRA TRANSFER TO [place]. WILL CONTINUE TO MONITOR UNTIL CHANGE OF SHIFT.
--- NOTE | 2020-09-10 10:45 | NUR ---
PT ALERT AND ORIENTED X4. ON ROOM AIR SATING ABOVE 94%. TELE SHOWING SINUS WITH HR 80'S. CHEST PAIN THIS AM 10, MEDICATED PER EMAR WITH GOOD RELIEF. SBA TO BATHROOM FOR SAFETY. WAITING BED IN [place]. PT ANXIOUS TO GET TRANSFERRED. DENIES OTHER PAINS, VITAL SIGNS STABLE. CHRONIC SWELLING NOTED IN BLE. HEPARIN DRIP INFUSING. WILL CONTINUE TO MONITOR.
--- NOTE | 2020-09-10 18:42 | NUR ---
NO ACUTE CHANGES. PT EPISODES OF CHEST PAIN ELEVATING TO 6/10 AT TIMES. MEDICATED PER EMAR WITH MORPHINE, PROVIDING RELIEF FOR PATIENT. VITAL SIGNS STABLE. TELE SHOWING SINUS WITH HR 80'S. COMPLAINS OF SOME HIP PAIN THIS AFTERNOON, MEDICATED PER EMAR WITH GOOD RELIEF. PT IN TO VISIT. WAITING BED IN [place]. WILL CONTINUE TO MONITOR AND REPORT OFF.
--- NOTE | 2020-09-10 20:46 | NUR ---
REPORT TO ENTIAT 2045 REPORT GIVEN TO AMEYA QUINTANA FOR RM [id number] FOR COBRA TRANSFER. AMBULANCE COMPANY HAS BEEN CALLED, AWAITING THEIR ARRIVAL FOR TRANSPORT. COBRA PPWK COMPLETED BY POLICY ADVISER DAN.
--- NOTE | 2020-09-10 22:21 | NUR ---
2135 [facility] TRANSFER [facility] TO ROOM TO TRANSPORT PT. REPORT GIVEN TO AMBULANCE PERSONNEL. HEPARIN GTT TO CONTINUE TO INFUSE ON TRANSPORT. PT AXO. IN SR. MEDICATED FOR CP PRE TRANSIT. VOIDED PRE TRANSIT W/OUT ISSUE. AND OTHERWISE, RECEIVED 2100 MEDS AND HAD BEEN NRESTING IN BED AWAITING TRANSFER. AMBULANCE CREW TOOK IV PUMP WITH HEPARIN GTT INFUSING. ALL MEDS AND BELONGINGS WITH PT UPON EXITING FACILITY. PT PRESENTS STABLE UPON DC. CREW LEFT [facility] @0878.
== END 2020-09-10 21:39 | disposition short-term general hospital (02) ==
LOC: ER 10:23 → PCU 10:24
PROVIDERS: Emergency Medicine; ADMIT Family Medicine
DX: I25.110 Atherosclerotic heart disease of native coronary artery with unstable angina pectoris (principal); I11.0 Hypertensive heart disease with heart failure; I50.42 Chronic combined systolic (congestive) and diastolic (congestive) heart failure; E87.6 Hypokalemia; I82.409 Acute embolism and thrombosis of unspecified deep veins of unspecified lower extremity; K21.9 Gastro-esophageal reflux disease without esophagitis; Z85.3 Personal history of malignant neoplasm of breast; I48.0 Paroxysmal atrial fibrillation; I21.9 Acute myocardial infarction, unspecified; Z96.653 Presence of artificial knee joint, bilateral; Z79.01 Long term (current) use of anticoagulants; Z79.82 Long term (current) use of aspirin; Z95.5 Presence of coronary angioplasty implant and graft
CPT/HCPCS: 36415; 71045; 80048; 80053; 83880; 84484; 85025; 85049; 85610; 85730; 93005; 93010; 96365; 96366; 96375; 96376; 99285-25; A9270; A9270-GY; G0378; J1644; J2270; J2405

== ENCOUNTER 2020-09-19 18:26 | Emergency (ER) | payer BC, SELFPAY ==
[~2020-09-19] VITALS: Ht 165.1 cm; Wt 89.4 kg
[2020-09-19] MEDS ORDERED: DOCU100 PO (18:56)
[2020-09-19] MEDS ORDERED: Isosorbide Mono30 MG PO (18:57)
[2020-09-19 20:00] LABS: BASOPHILS ABSOLUTE AUTO 0.05 K/mm3 (0.00-0.23); BASOPHILS PERCENT AUTO 1 % (0-2); EOSINOPHILS ABSOLUTE AUTO 0.29 K/mm3 (0.00-0.68); EOSINOPHILS PERCENT AUTO 4 % (0-6); Hematocrit 39.3 % (33.0-51.0); Hemoglobin 13.7 g/dL (11.5-16.0); IMMATURE GRAN ABSOLUTE AUTO 0.03 K/mm3 (0.00-0.10); IMMATURE GRAN PERCENT AUTO 0 % (0-1); LYMPHOCYTES ABSOLUTE AUTO 2.34 K/mm3 (0.84-5.20); LYMPHOCYTES PERCENT AUTO 34 % (21-46); MONOCYTES ABSOLUTE AUTO 0.64 K/mm3 (0.16-1.47); MONOCYTES PERCENT AUTO 9 % (4-13); Mean Corpuscular HGB 34.3 pg (26.0-34.0); Mean Corpuscular HGB Conc 34.9 g/dL (31.5-36.5); Mean Corpuscular Volume 99 fL (80-100); Mean Platelet Volume 9.1 fL (9.1-12.4); NEUTROPHILS ABSOLUTE AUTO 3.61 K/mm3 (1.96-9.15); NEUTROPHILS PERCENT AUTO 52 % (41-73); Platelet Count 319 K/mm3 (150-400); RDW Coefficient Variation 11.9 % (11.7-14.2); RDW Standard Deviation 43.5 fL (35.1-46.3); Red Blood Cell Count 3.99 M/mm3 (3.80-5.20); White Blood Cell Count 6.96 K/mm3 (4.00-11.30)
[2020-09-19 20:15] LABS: Troponin I <0.015 ng/mL (0.000-0.040)
[2020-09-19 20:26] LABS: Alanine Aminotransfer (ALT/SGP 30 U/L (12-78); Albumin/Globulin Ratio 1.1 (0.8-1.8); Alk Phos 111 U/L (50-136); Anion Gap 12 mmol/L (6-16); Aspartate Aminotrans (AST/SGOT 22 U/L (12-37); Bilirubin, Total 0.7 mg/dL (0.1-1.0); Blood Urea Nitrogen 17 mg/dL (8-24); CO2, Blood 22 mmol/L (21-32); Calcium, Blood 8.9 mg/dL (8.5-10.1); Chloride, Blood 102 mmol/L (98-108); Creatinine, Blood 1.06 mg/dL (0.40-1.00); Globulin, Blood 3.8 g/dL (2.2-4.0); Glomerular Filtration Rate 55 (60-); Glucose, Blood 161 mg/dL (70-99); Potassium, Blood 3.2 mmol/L (3.5-5.5); Sodium, Blood 136 mmol/L (136-145); Total Protein, Blood 7.8 g/dL (6.4-8.2)
== END 2020-09-19 20:50 | disposition home or self-care (01) ==
LOC: ER 18:26
PROVIDERS: Emergency Medicine
DX: R68.84 Jaw pain (principal); R07.9 Chest pain, unspecified; I11.0 Hypertensive heart disease with heart failure; I50.32 Chronic diastolic (congestive) heart failure; I48.0 Paroxysmal atrial fibrillation; I25.10 Atherosclerotic heart disease of native coronary artery without angina pectoris; K21.9 Gastro-esophageal reflux disease without esophagitis; Z79.02 Long term (current) use of antithrombotics/antiplatelets; Z79.899 Other long term (current) drug therapy; Z88.8 Allergy status to other drugs, medicaments and biological substances; Z91.030 Bee allergy status; Z79.01 Long term (current) use of anticoagulants; Z86.73 Personal history of transient ischemic attack (TIA), and cerebral infarction without residual deficits; Z88.5 Allergy status to narcotic agent; Z88.4 Allergy status to anesthetic agent
CPT/HCPCS: 71046; 80053; 84484; 85025; 93005; 93010; 96374; 99284-25; J2270

== ENCOUNTER 2020-12-09 12:26 | Emergency (ER) | payer BC ==
[~2020-12-09] VITALS: Ht 165.1 cm; Wt 87.1 kg
[~2020-12-09 12:26] MED LIST changes: +Isosorbide Mono30 MG PO
[2020-12-09 12:53] LABS: BASOPHILS ABSOLUTE AUTO 0.05 K/mm3 (0.00-0.23); BASOPHILS PERCENT AUTO 1 % (0-2); EOSINOPHILS ABSOLUTE AUTO 0.13 K/mm3 (0.00-0.68); EOSINOPHILS PERCENT AUTO 2 % (0-6); IMMATURE GRAN ABSOLUTE AUTO 0.02 K/mm3 (0.00-0.10); IMMATURE GRAN PERCENT AUTO 0 % (0-1); LYMPHOCYTES ABSOLUTE AUTO 1.72 K/mm3 (0.84-5.20); LYMPHOCYTES PERCENT AUTO 23 % (21-46); MONOCYTES ABSOLUTE AUTO 0.95 K/mm3 (0.16-1.47); MONOCYTES PERCENT AUTO 13 % (4-13); Mean Corpuscular HGB 34.8 pg (26.0-34.0); Mean Corpuscular HGB Conc 35.1 g/dL (31.5-36.5); Mean Corpuscular Volume 99 fL (80-100); Mean Platelet Volume 9.3 fL (9.1-12.4); NEUTROPHILS ABSOLUTE AUTO 4.57 K/mm3 (1.96-9.15); NEUTROPHILS PERCENT AUTO 61 % (41-73); Platelet Count 266 K/mm3 (150-400); RDW Coefficient Variation 13.4 % (11.7-14.2); RDW Standard Deviation 48.3 fL (35.1-46.3); Red Blood Cell Count 3.74 M/mm3 (3.80-5.20); White Blood Cell Count 7.44 K/mm3 (4.00-11.30)
[2020-12-09 13:15] LABS: Alanine Aminotransfer (ALT/SGP 29 U/L (12-78); Albumin, Blood 3.4 g/dL (3.4-5.0); Albumin/Globulin Ratio 0.9 (0.8-1.8); Alk Phos 108 U/L (50-136); Anion Gap 8 mmol/L (6-16); Aspartate Aminotrans (AST/SGOT 38 U/L (12-37); Bilirubin, Total 1.8 mg/dL (0.1-1.0); Blood Urea Nitrogen 10 mg/dL (8-24); Bun/Creatinine Ratio 14.8 (12.0-20.0); CO2, Blood 27 mmol/L (21-32); Chloride, Blood 104 mmol/L (98-108); Creatinine, Blood 0.67 mg/dL (0.40-1.00); Globulin, Blood 3.7 g/dL (2.2-4.0); Glomerular Filtration Rate >60 (60-); Glucose, Blood 121 mg/dL (70-99); Potassium, Blood 3.2 mmol/L (3.5-5.5); Sodium, Blood 139 mmol/L (136-145); Total Protein, Blood 7.1 g/dL (6.4-8.2); Troponin I 0.022 ng/mL (0.000-0.040)
== END 2020-12-09 17:26 | disposition home or self-care (01) ==
LOC: ER 12:26
PROVIDERS: Emergency Medicine
DX: R07.9 Chest pain, unspecified (principal); I11.0 Hypertensive heart disease with heart failure; K21.9 Gastro-esophageal reflux disease without esophagitis; I50.42 Chronic combined systolic (congestive) and diastolic (congestive) heart failure; Z79.899 Other long term (current) drug therapy; Z88.7 Allergy status to serum and vaccine; Z88.5 Allergy status to narcotic agent; Z91.030 Bee allergy status; Z79.01 Long term (current) use of anticoagulants; Z79.02 Long term (current) use of antithrombotics/antiplatelets
CPT/HCPCS: 71046; 80053; 84484; 85025; 93005; 93010; 96374; 96375; 96376; 99285-25; J1170; J2270; J2405

== ENCOUNTER → 2021-01-10 | Outpatient (CLI) | payer BC | END | disposition home or self-care (01) | LOC: LAB 13:30 → LAB SHORT 13:30 | DX: R30.9 Painful micturition, unspecified (principal) | CPT/HCPCS: 87086 ==

== ENCOUNTER → 2021-05-01 | Outpatient (CLI) | payer BC ==
[~2021-05-01] MED LIST changes: +DOCUZEN 8.6-501 EACH PO
[2021-05-01 20:23] LABS: Anion Gap 7 mmol/L (6-16); Blood Urea Nitrogen 18 mg/dL (8-24); Bun/Creatinine Ratio 22.4 (12.0-20.0); CO2, Blood 26 mmol/L (21-32); Calcium, Blood 9.5 mg/dL (8.5-10.1); Chloride, Blood 103 mmol/L (98-108); Glomerular Filtration Rate >60 (60-); Glucose, Blood 144 mg/dL (70-99); Potassium, Blood 4.1 mmol/L (3.5-5.5); Sodium, Blood 136 mmol/L (136-145)
== END | disposition home or self-care (01) ==
LOC: LAB SHORT 17:31 → LAB 17:31
PROVIDERS: Nurse Practitioner
DX: R07.9 Chest pain, unspecified (principal)
CPT/HCPCS: 80048

== ENCOUNTER → 2021-09-22 | Outpatient (CLI) | payer BC ==
[2021-09-22 11:43] LABS: BASOPHILS ABSOLUTE AUTO 0.08 K/mm3 (0.00-0.23); BASOPHILS PERCENT AUTO 1 % (0-2); EOSINOPHILS ABSOLUTE AUTO 0.12 K/mm3 (0.00-0.68); EOSINOPHILS PERCENT AUTO 1 % (0-6); Hematocrit 44.8 % (33.0-51.0); Hemoglobin 15.7 g/dL (11.5-16.0); IMMATURE GRAN ABSOLUTE AUTO 0.05 K/mm3 (0.00-0.10); IMMATURE GRAN PERCENT AUTO 1 % (0-1); LYMPHOCYTES PERCENT AUTO 20 % (21-46); MONOCYTES ABSOLUTE AUTO 1.02 K/mm3 (0.16-1.47); MONOCYTES PERCENT AUTO 10 % (4-13); Mean Corpuscular HGB 36.1 pg (26.0-34.0); Mean Corpuscular Volume 103 fL (80-100); Mean Platelet Volume 8.8 fL (9.1-12.4); NEUTROPHILS ABSOLUTE AUTO 7.42 K/mm3 (1.96-9.15); NEUTROPHILS PERCENT AUTO 69 % (41-73); Platelet Count 289 K/mm3 (150-400); RDW Coefficient Variation 13.1 % (11.7-14.2); RDW Standard Deviation 49.5 fL (35.1-46.3); Red Blood Cell Count 4.35 M/mm3 (3.80-5.20); White Blood Cell Count 10.79 K/mm3 (4.00-11.30)
[2021-09-22 11:55] LABS: Albumin, Blood 4.3 g/dL (3.4-5.0); Bun/Creatinine Ratio 22.9 (12.0-20.0); Calcium, Blood 10.2 mg/dL (8.5-10.1); Creatinine, Blood 1.31 mg/dL (0.40-1.00); Globulin, Blood 4.5 g/dL (2.2-4.0); Potassium, Blood 5.1 mmol/L (3.5-5.5); Total Protein, Blood 8.8 g/dL (6.4-8.2)
== END ==
LOC: LAB 11:39 → LAB SHORT 11:39
PROVIDERS: Physician Assistant
DX: R10.9 Unspecified abdominal pain (principal); R07.9 Chest pain, unspecified
CPT/HCPCS: 80053; 84484; 85025; 85379

== ENCOUNTER 2021-12-11 20:32 | Emergency (ER) | payer BC ==
[~2021-12-11] VITALS: Ht 162.6 cm; Wt 81.7 kg
[2021-12-11 21:16] LABS: BASOPHILS ABSOLUTE AUTO 0.04 K/mm3 (0.00-0.23); BASOPHILS PERCENT AUTO 1 % (0-2); EOSINOPHILS ABSOLUTE AUTO 0.11 K/mm3 (0.00-0.68); EOSINOPHILS PERCENT AUTO 2 % (0-6); Hematocrit 36.4 % (33.0-51.0); Hemoglobin 12.5 g/dL (11.5-16.0); IMMATURE GRAN ABSOLUTE AUTO 0.02 K/mm3 (0.00-0.10); IMMATURE GRAN PERCENT AUTO 0 % (0-1); LYMPHOCYTES ABSOLUTE AUTO 1.74 K/mm3 (0.84-5.20); LYMPHOCYTES PERCENT AUTO 26 % (21-46); MONOCYTES ABSOLUTE AUTO 0.64 K/mm3 (0.16-1.47); MONOCYTES PERCENT AUTO 10 % (4-13); Mean Corpuscular HGB 34.2 pg (26.0-34.0); Mean Corpuscular HGB Conc 34.3 g/dL (31.5-36.5); Mean Corpuscular Volume 100 fL (80-100); Mean Platelet Volume 8.7 fL (9.1-12.4); NEUTROPHILS ABSOLUTE AUTO 4.12 K/mm3 (1.96-9.15); NEUTROPHILS PERCENT AUTO 62 % (41-73); Platelet Count 232 K/mm3 (150-400); RDW Standard Deviation 44.1 fL (35.1-46.3); Red Blood Cell Count 3.65 M/mm3 (3.80-5.20); White Blood Cell Count 6.67 K/mm3 (4.00-11.30)
[2021-12-11] MEDS ORDERED: OXYB5 PO (21:26)
[2021-12-11 21:34] LABS: Albumin/Globulin Ratio 0.8 (0.8-1.8); Bilirubin, Total 0.6 mg/dL (0.1-1.0); Bun/Creatinine Ratio 9.3 (12.0-20.0); Creatinine, Blood 1.08 mg/dL (0.40-1.00); Globulin, Blood 3.7 g/dL (2.2-4.0); Potassium, Blood 2.9 mmol/L (3.5-5.5); Total Protein, Blood 6.7 g/dL (6.4-8.2)
[2021-12-11 22:58] LABS: Magnesium, Blood 2.1 mg/dL (1.6-2.4)
== END 2021-12-12 02:15 | disposition home or self-care (01) ==
LOC: ER 20:32
PROVIDERS: Student in an Organized Health Care Education/Training Program
DX: R07.89 Other chest pain (principal); I25.10 Atherosclerotic heart disease of native coronary artery without angina pectoris; I11.0 Hypertensive heart disease with heart failure; I50.42 Chronic combined systolic (congestive) and diastolic (congestive) heart failure; K21.9 Gastro-esophageal reflux disease without esophagitis; I25.2 Old myocardial infarction; Z88.5 Allergy status to narcotic agent; Z88.8 Allergy status to other drugs, medicaments and biological substances; Z91.030 Bee allergy status; Z79.899 Other long term (current) drug therapy; Z79.01 Long term (current) use of anticoagulants; Z86.73 Personal history of transient ischemic attack (TIA), and cerebral infarction without residual deficits; Z95.5 Presence of coronary angioplasty implant and graft
CPT/HCPCS: 36415; 71046; 80053; 83735; 83880; 84484; 85025; 93005; 93010; A9270; J2270; J2405; J3480; J7030

== ENCOUNTER → 2022-01-13 | Outpatient (CLI) | payer BC ==
[~2022-01-13] MED LIST changes: +OXYB5 PO
== END | disposition home or self-care (01) ==
LOC: LAB SHORT 12:30 → LAB 12:30
DX: N39.0 Urinary tract infection, site not specified (principal)
CPT/HCPCS: 87077; 87086; 87186

== ENCOUNTER → 2022-04-01 | Outpatient (CLI) | payer BC ==
[~2022-04-01] MED LIST changes: +LEVOTHYROXINE PO; +METO100ER PO; +SENNA LAXATIVE8.6 MG PO; +SPIR50 PO; +THERA-D2000 UNIT PO; +Ventolin5 MG/1 ML INH
== END ==
LOC: LAB SHORT 15:16 → LAB 15:16
DX: N39.0 Urinary tract infection, site not specified (principal)
CPT/HCPCS: 87086

== ENCOUNTER 2022-04-12 12:02 | Inpatient (IN) | payer BC ==
[~2022-04-12] VITALS: Ht 162.6 cm; Wt 88.3 kg
[~2022-04-12 12:02] MED LIST changes: +EUTHYROX88 MCG PO; -LEVOTHYROXINE PO
[2022-04-12 13:28] LABS: BASOPHILS ABSOLUTE AUTO 0.07 K/mm3 (0.00-0.23); BASOPHILS PERCENT AUTO 1 % (0-2); EOSINOPHILS ABSOLUTE AUTO 0.08 K/mm3 (0.00-0.68); EOSINOPHILS PERCENT AUTO 1 % (0-6); Hematocrit 41.5 % (33.0-51.0); Hemoglobin 14.2 g/dL (11.5-16.0); IMMATURE GRAN ABSOLUTE AUTO 0.06 K/mm3 (0.00-0.10); IMMATURE GRAN PERCENT AUTO 1 % (0-1); LYMPHOCYTES ABSOLUTE AUTO 1.85 K/mm3 (0.84-5.20); LYMPHOCYTES PERCENT AUTO 24 % (21-46); MONOCYTES ABSOLUTE AUTO 0.48 K/mm3 (0.16-1.47); MONOCYTES PERCENT AUTO 6 % (4-13); Mean Corpuscular HGB 35.7 pg (26.0-34.0); Mean Corpuscular HGB Conc 34.2 g/dL (31.5-36.5); Mean Corpuscular Volume 104 fL (80-100); Mean Platelet Volume 9.1 fL (9.1-12.4); NEUTROPHILS ABSOLUTE AUTO 5.26 K/mm3 (1.96-9.15); NEUTROPHILS PERCENT AUTO 67 % (41-73); Platelet Count 361 K/mm3 (150-400); RDW Coefficient Variation 13.3 % (11.7-14.2); RDW Standard Deviation 51.7 fL (35.1-46.3); Red Blood Cell Count 3.98 M/mm3 (3.80-5.20)
[2022-04-12 13:30] LABS: Albumin, Blood 3.8 g/dL (3.4-5.0); Albumin/Globulin Ratio 0.7 (0.8-1.8); Bilirubin, Total 0.9 mg/dL (0.1-1.0); Bun/Creatinine Ratio 20.4 (12.0-20.0); Calcium, Blood 10.8 mg/dL (8.5-10.1); Creatinine, Blood 1.57 mg/dL (0.40-1.00); Globulin, Blood 5.7 g/dL (2.2-4.0); Potassium, Blood 7.1 mmol/L (3.5-5.5); Total Protein, Blood 9.5 g/dL (6.4-8.2)
[2022-04-12 15:32] LABS: Base Excess Venous 0.5 mmol/L; Bicarbonate Venous 23.1 mmol/L (24.0-30.0); PCO2 Venous 50.8 mmHg (38-42); pH Blood Venous 7.33 (7.34-7.37)
[2022-04-12 15:58] LABS: Magnesium, Blood 2.3 mg/dL (1.6-2.4)
[2022-04-12 16:00] LABS: Bun/Creatinine Ratio 19.6 (12.0-20.0); Calcium, Blood 11.4 mg/dL (8.5-10.1); Creatinine, Blood 1.48 mg/dL (0.40-1.00); Potassium, Blood 6.1 mmol/L (3.5-5.5)
[2022-04-12 16:02] LABS: Influenza A Negative (NEGATIVE); Influenza B Negative (NEGATIVE)
[2022-04-12] MEDS ORDERED: ZOLP5 PO (18:30)
--- NOTE | 2022-04-12 18:39 | NUR ---
SHIFT SUMMARY; ARRIVES TO PCU VIA GURNEY FROM ED, MOVES SELF TO [place]. 1500ML FLUID BOLUS INFUSING ON ARRIVAL FROM ED. CONTINUING TO INFUSE AT SHIFT CHANGE. PHONE CALL TO DR. SMITH REGARDING MOST RECENT POTASSIUM OF 6.1 WHILE IN ED. VERBAL ORDERS GIVEN FOR 10 UNITS IV REGULAR INSULIN AND 1 AMP D50 WHEN PT ARRIVES TO PCU. MEDICATED PER ORDERS ON ARRIVAL. A/A/OX4, VSS, MOVES [place]ELF ON [place], 1 PERSON ASSIST IN ROOM. MULTIPLE BRUISES NOTED ON BACK, PT STATES HAS BEEN RECENTLY FALLING ALOT AT HOME. DINNER TRAY PROVIDED. WILL CONTINUE TO MONITOR UNTIL CHANGE OF SHIFT.
[2022-04-12 21:56] LABS: Bun/Creatinine Ratio 20.4 (12.0-20.0); Creatinine, Blood 1.57 mg/dL (0.40-1.00); Potassium, Blood 6.5 mmol/L (3.5-5.5)
[2022-04-13 03:44] LABS: BASOPHILS ABSOLUTE AUTO 0.06 K/mm3 (0.00-0.23); BASOPHILS PERCENT AUTO 1 % (0-2); EOSINOPHILS ABSOLUTE AUTO 0.11 K/mm3 (0.00-0.68); EOSINOPHILS PERCENT AUTO 2 % (0-6); Hematocrit 34.3 % (33.0-51.0); Hemoglobin 11.8 g/dL (11.5-16.0); IMMATURE GRAN ABSOLUTE AUTO 0.06 K/mm3 (0.00-0.10); IMMATURE GRAN PERCENT AUTO 1 % (0-1); LYMPHOCYTES ABSOLUTE AUTO 1.56 K/mm3 (0.84-5.20); LYMPHOCYTES PERCENT AUTO 25 % (21-46); MONOCYTES ABSOLUTE AUTO 0.71 K/mm3 (0.16-1.47); MONOCYTES PERCENT AUTO 11 % (4-13); Mean Corpuscular HGB 35.5 pg (26.0-34.0); Mean Corpuscular HGB Conc 34.4 g/dL (31.5-36.5); Mean Corpuscular Volume 103 fL (80-100); NEUTROPHILS ABSOLUTE AUTO 3.72 K/mm3 (1.96-9.15); NEUTROPHILS PERCENT AUTO 60 % (41-73); Platelet Count 246 K/mm3 (150-400); RDW Coefficient Variation 13.5 % (11.7-14.2); RDW Standard Deviation 51.7 fL (35.1-46.3); Red Blood Cell Count 3.32 M/mm3 (3.80-5.20); White Blood Cell Count 6.22 K/mm3 (4.00-11.30)
[2022-04-13 04:04] LABS: Magnesium, Blood 1.8 mg/dL (1.6-2.4)
[2022-04-13 04:07] LABS: Albumin/Globulin Ratio 0.7 (0.8-1.8); Bilirubin, Total 0.6 mg/dL (0.1-1.0); Calcium, Blood 9.7 mg/dL (8.5-10.1); Creatinine, Blood 1.47 mg/dL (0.40-1.00); Globulin, Blood 4.1 g/dL (2.2-4.0); Potassium, Blood 5.7 mmol/L (3.5-5.5)
[2022-04-13 04:08] LABS: Total Protein, Blood 7.1 g/dL (6.4-8.2)
--- NOTE | 2022-04-13 16:21 | NUR ---
SHIFT SUMMARY: PT REMAINS ALERT AND ORIENTED X4, ABLE TO FOLLOW COMMANDS AND MAKE NEEDS KNOWN. BP AND HR STABLE. AFEBRILE. SATING >94% ON RA. PT WORKED WITH PT/OT THIS AFTERNOON, ABLE TO TRANSFER TO [facility] VIA ONE PERSON ASSIST. NO BM. NS GTT @150 ML/HR. PT COMPLAINED OF CHRONIC HIP PAIN THROUGHOUT THE DAY, MEDICATED PER EMAR. NO COMPLAINTS OF CP/PRESSURE/SOB. BED IN LOW, CALL LIGHT IN REACH, WILL REPORT TO ONCOMING RN.
[2022-04-14 04:41] LABS: Albumin, Blood 2.7 g/dL (3.4-5.0); Anion Gap 6 mmol/L (6-16); Blood Urea Nitrogen 17 mg/dL (8-24); Bun/Creatinine Ratio 17.4 (12.0-20.0); CO2, Blood 21 mmol/L (21-32); Calcium, Blood 8.6 mg/dL (8.5-10.1); Chloride, Blood 105 mmol/L (98-108); Creatinine, Blood 0.98 mg/dL (0.40-1.00); Glomerular Filtration Rate 63 (60-); Glucose, Blood 120 mg/dL (70-99); Phosphorus, Blood 2.5 mg/dL (2.5-4.9); Potassium, Blood 4.3 mmol/L (3.5-5.5); Sodium, Blood 132 mmol/L (136-145)
--- NOTE | 2022-04-14 05:59 | NUR ---
SHIFT SUMMARY ASSUMED CARE OF PT AT 1900. PT WAS A/OX4 FOR MOST OF THE SHIFT EXCEPT FOR WAKING UP AT 0030 CONFUSED AND NOT REMEMBERING WHERE SHE WAS OR WHY SHE WAS AT THE HOSPITAL. PT WAS SCARED AND THOUGHT SOMEONE WAS GOING TO COME AND BEAT HER UP. AT 0300 WHEN SHE AWOKE AGAIN, SHE SAID SHE REMEMBERED SOMETHINGS AND THIS NURSE BUT STILL DOES NOT FEEL HER BEST. NO OTHER ACUTE EVENTS. PT IS A 1P SBA TO BSC. PT C/O PAIN DUE TO ARTHRITIS, MEDICATED PER EMAR.
--- NOTE | 2022-04-14 07:39 | NUR ---
Bedside report received from MARIANO De Guzman. The pt is awakened easily and inadvertently. She c/o left hip pain, on which she is lying this morning. Asked if she would like position change, and said that she would not like to as she has been lying on the right side all night. She requests her pain medication at this time. I am told that she normally takes 15 mg oxycodone at home, but that her dose here in the hospital is only 5 mg q 4 prn. Last dose given per eMAR was around 0330.
--- NOTE | 2022-04-14 08:15 | NUR ---
Sitting up in bed, eating breakfast. Medicated for arthritic pain in hips and ankles. States that she had an awful night, that she woke up completely disoriented and anxious. STates it took about 2-3 hours then to get back to her normal self. She is eager to go home.
== END 2022-04-14 12:50 | disposition home or self-care (01) | DRG 682 ==
LOC: ER 12:02 → PCU 15:20 → ERHOLD 15:20 → PCU 17:35
PROVIDERS: Emergency Medicine; Internal Medicine; Nurse Practitioner Acute Care; Physician Assistant; ADMIT Hospitalist
DX: N17.9 Acute kidney failure, unspecified (principal); G92.8 Other toxic encephalopathy; I50.42 Chronic combined systolic (congestive) and diastolic (congestive) heart failure; F11.20 Opioid dependence, uncomplicated; E87.1 Hypo-osmolality and hyponatremia; E87.5 Hyperkalemia; I11.0 Hypertensive heart disease with heart failure; I48.0 Paroxysmal atrial fibrillation; I25.10 Atherosclerotic heart disease of native coronary artery without angina pectoris; I35.0 Nonrheumatic aortic (valve) stenosis; M19.90 Unspecified osteoarthritis, unspecified site; E03.9 Hypothyroidism, unspecified; K21.9 Gastro-esophageal reflux disease without esophagitis; E78.5 Hyperlipidemia, unspecified; G89.29 Other chronic pain; N32.81 Overactive bladder; M14.679 Charcot's joint, unspecified ankle and foot; Z96.653 Presence of artificial knee joint, bilateral; Z95.2 Presence of prosthetic heart valve; Z85.3 Personal history of malignant neoplasm of breast; Z86.73 Personal history of transient ischemic attack (TIA), and cerebral infarction without residual deficits; Z95.5 Presence of coronary angioplasty implant and graft; Z98.890 Other specified postprocedural states; Z92.21 Personal history of antineoplastic chemotherapy; Z92.3 Personal history of irradiation; Z88.8 Allergy status to other drugs, medicaments and biological substances; Z88.5 Allergy status to narcotic agent; Z91.038 Other insect allergy status; Z79.51 Long term (current) use of inhaled steroids; Z79.01 Long term (current) use of anticoagulants; Z79.02 Long term (current) use of antithrombotics/antiplatelets; Z79.899 Other long term (current) drug therapy; I25.2 Old myocardial infarction; Z90.49 Acquired absence of other specified parts of digestive tract; Z90.710 Acquired absence of both cervix and uterus
CPT/HCPCS: 36415; 71046; 76770; 80048; 80053; 80069; 82550; 82803; 82947; 83605; 83690; 83735; 83880; 84484; 85025; 87804; 93005; 93010; 94640; 94644; 94664; 94762; 97166; 97530; 97535; A9270; J0610; J1815; J7030; J7040; J7799

== ENCOUNTER → 2022-04-26 | Outpatient (CLI) | payer MEDICARE, BC ==
[2022-04-26 16:52] LABS: BASOPHILS ABSOLUTE AUTO 0.04 K/mm3 (0.00-0.23); BASOPHILS PERCENT AUTO 0 % (0-2); EOSINOPHILS ABSOLUTE AUTO 0.16 K/mm3 (0.00-0.68); EOSINOPHILS PERCENT AUTO 2 % (0-6); Hematocrit 39.7 % (33.0-51.0); Hemoglobin 13.6 g/dL (11.5-16.0); IMMATURE GRAN ABSOLUTE AUTO 0.03 K/mm3 (0.00-0.10); IMMATURE GRAN PERCENT AUTO 0 % (0-1); LYMPHOCYTES ABSOLUTE AUTO 1.94 K/mm3 (0.84-5.20); LYMPHOCYTES PERCENT AUTO 21 % (21-46); MONOCYTES ABSOLUTE AUTO 0.87 K/mm3 (0.16-1.47); MONOCYTES PERCENT AUTO 9 % (4-13); Mean Corpuscular HGB 35.1 pg (26.0-34.0); Mean Corpuscular HGB Conc 34.3 g/dL (31.5-36.5); Mean Corpuscular Volume 102 fL (80-100); NEUTROPHILS ABSOLUTE AUTO 6.23 K/mm3 (1.96-9.15); NEUTROPHILS PERCENT AUTO 67 % (41-73); Platelet Count 268 K/mm3 (150-400); RDW Coefficient Variation 12.7 % (11.7-14.2); RDW Standard Deviation 47.5 fL (35.1-46.3); Red Blood Cell Count 3.88 M/mm3 (3.80-5.20); White Blood Cell Count 9.27 K/mm3 (4.00-11.30)
[2022-04-26 17:02] LABS: Albumin, Blood 3.4 g/dL (3.4-5.0); Albumin/Globulin Ratio 0.7 (0.8-1.8); Bilirubin, Total 0.9 mg/dL (0.1-1.0); Bun/Creatinine Ratio 10.9 (12.0-20.0); Calcium, Blood 8.8 mg/dL (8.5-10.1); Creatinine, Blood 1.1 mg/dL (0.40-1.00); Globulin, Blood 4.8 g/dL (2.2-4.0); Potassium, Blood 3.3 mmol/L (3.5-5.5); Total Protein, Blood 8.2 g/dL (6.4-8.2)
== END | disposition home or self-care (01) ==
LOC: LAB SHORT 16:47
PROVIDERS: Physician Assistant
DX: R06.00 Dyspnea, unspecified (principal)
CPT/HCPCS: 80053; 83880; 85025

== ENCOUNTER 2022-10-20 15:50 | Inpatient (IN) | payer MEDICARE, BC ==
[~2022-10-20] VITALS: Ht 167.6 cm; Wt 87.9 kg
[~2022-10-20 15:50] MED LIST changes: -CEPH500 PO; -FAMO20 PO; -METOPROLOL SUCC25 MG PO; -POTA8 PO
[2022-10-20 16:12] LABS: BASOPHILS ABSOLUTE AUTO 0.03 K/mm3 (0.00-0.23); BASOPHILS PERCENT AUTO 0 % (0-2); EOSINOPHILS PERCENT AUTO 0 % (0-6); Hematocrit 33.4 % (33.0-51.0); Hemoglobin 12.4 g/dL (11.5-16.0); IMMATURE GRAN ABSOLUTE AUTO 0.12 K/mm3 (0.00-0.10); IMMATURE GRAN PERCENT AUTO 1 % (0-1); LYMPHOCYTES ABSOLUTE AUTO 1.03 K/mm3 (0.84-5.20); LYMPHOCYTES PERCENT AUTO 12 % (21-46); MONOCYTES ABSOLUTE AUTO 0.78 K/mm3 (0.16-1.47); MONOCYTES PERCENT AUTO 9 % (4-13); Mean Corpuscular HGB 35.9 pg (26.0-34.0); Mean Corpuscular HGB Conc 37.1 g/dL (31.5-36.5); Mean Corpuscular Volume 97 fL (80-100); Mean Platelet Volume 9.4 fL (9.1-12.4); NEUTROPHILS ABSOLUTE AUTO 6.57 K/mm3 (1.96-9.15); NEUTROPHILS PERCENT AUTO 77 % (41-73); Platelet Count 259 K/mm3 (150-400); RDW Coefficient Variation 14.5 % (11.7-14.2); RDW Standard Deviation 51.4 fL (35.1-46.3); Red Blood Cell Count 3.45 M/mm3 (3.80-5.20); White Blood Cell Count 8.53 K/mm3 (4.00-11.30)
[2022-10-20 16:33] LABS: Magnesium, Blood 2.5 mg/dL (1.6-2.4)
[2022-10-20 16:41] LABS: Albumin, Blood 2.3 g/dL (3.4-5.0); Albumin/Globulin Ratio 0.5 (0.8-1.8); Bilirubin, Total 1.4 mg/dL (0.1-1.0); Bun/Creatinine Ratio 17.9 (12.0-20.0); Calcium, Blood 9.4 mg/dL (8.5-10.1); Creatinine, Blood 0.78 mg/dL (0.40-1.00); Globulin, Blood 4.9 g/dL (2.2-4.0); Potassium, Blood 2.8 mmol/L (3.5-5.5); Total Protein, Blood 7.2 g/dL (6.4-8.2)
[2022-10-20] MEDS ORDERED: FAMO20 PO (17:29)
[2022-10-20] MEDS ORDERED: METOPROLOL SUCC25 MG PO (17:29)
[2022-10-20] MEDS ORDERED: DIPATR PO (17:30)
[2022-10-20] MEDS ORDERED: CYCL10 PO (17:30)
[2022-10-20] MEDS ORDERED: POTA8 PO (17:30)
[2022-10-20] MEDS ORDERED: ZOLP5 PO (17:31)
[2022-10-20 21:59] VITALS: BP 123/61
[2022-10-20 22:31] LABS: Base Excess Venous 21.1 mmol/L; Bicarbonate Venous 42.7 mmol/L (24.0-30.0); PCO2 Venous 43.3 mmHg (38-42)
--- NOTE | 2022-10-20 23:36 | NUR ---
TRANSFER NOTE/PATIENT UPDATE THIS RN RECEIVED REPORT FROM NIKO QUINTANA IN THE ED VIA PHONE. PATIENT ARRIVED TO UNIT AT 2145. PATIENT ENDORSES WEAKNESS, PATIENT TRANSFERRED VIA SLIDE FROM [facility] TO BED. PATIENT REPORTING NAUSEA AFTER ARRIVAL; MEDICATED PER EMAR. PATIENT ALERT AND ORIENTED FULLY, ABLE TO MAKE NEEDS KNOWN. PATIENT AND ENSORSE N/V AND DIARRHEA AT HOME; UNCLEAR OF HOW OFTEN D/T DIFFERING STORIES BETWEEN PATIENT AND . AFIB NOTED ON MONITOR WITH HR 100-120'S. DENIES CHEST PAIN/PRESSURE; TRENDING TROPONINS. BP STABLE. SPO2 >92% ON RA. AFEBRILE. 1L FLUID BOLUS INFUSED PER EMAR. CALL PLACED TO MD CHINO REGARDING CRITICAL VBG PH. NO NEW ORDERS. CALL PLACED TO MD CHINO REGARDING INABILITY TO TAKE PO POTASSIUM D/T NAUSEA/VOMITING; ORDERS FOR IV POTASSIUM PLACED. BED IN LOWEST POSITION AND CALL LIGHT WITHIN REACH.
[2022-10-20 23:53] VITALS: BP 118/68
[2022-10-21 04:28] VITALS: BP 118/68
[2022-10-21 04:42] LABS: PCO2 Venous 47.5 mmHg (38-42); pH Blood Venous 7.54 (7.34-7.37)
[2022-10-21 04:49] LABS: BASOPHILS ABSOLUTE AUTO 0.01 K/mm3 (0.00-0.23); BASOPHILS PERCENT AUTO 0 % (0-2); EOSINOPHILS ABSOLUTE AUTO 0.02 K/mm3 (0.00-0.68); EOSINOPHILS PERCENT AUTO 0 % (0-6); Hematocrit 27.7 % (33.0-51.0); Hemoglobin 9.9 g/dL (11.5-16.0); IMMATURE GRAN ABSOLUTE AUTO 0.05 K/mm3 (0.00-0.10); IMMATURE GRAN PERCENT AUTO 1 % (0-1); LYMPHOCYTES ABSOLUTE AUTO 0.76 K/mm3 (0.84-5.20); LYMPHOCYTES PERCENT AUTO 14 % (21-46); MONOCYTES ABSOLUTE AUTO 0.58 K/mm3 (0.16-1.47); MONOCYTES PERCENT AUTO 11 % (4-13); Mean Corpuscular HGB 35.6 pg (26.0-34.0); Mean Corpuscular HGB Conc 35.7 g/dL (31.5-36.5); Mean Corpuscular Volume 100 fL (80-100); Mean Platelet Volume 9.4 fL (9.1-12.4); NEUTROPHILS ABSOLUTE AUTO 4.08 K/mm3 (1.96-9.15); NEUTROPHILS PERCENT AUTO 74 % (41-73); Platelet Count 204 K/mm3 (150-400); RDW Coefficient Variation 14.7 % (11.7-14.2); RDW Standard Deviation 54.4 fL (35.1-46.3); Red Blood Cell Count 2.78 M/mm3 (3.80-5.20)
[2022-10-21 05:25] LABS: Magnesium, Blood 2.2 mg/dL (1.6-2.4)
[2022-10-21 05:37] LABS: Albumin, Blood 1.9 g/dL (3.4-5.0); Albumin/Globulin Ratio 0.5 (0.8-1.8); Calcium, Blood 7.2 mg/dL (8.5-10.1); Creatinine, Blood 0.73 mg/dL (0.40-1.00); Globulin, Blood 3.7 g/dL (2.2-4.0); Potassium, Blood 3.3 mmol/L (3.5-5.5); Total Protein, Blood 5.6 g/dL (6.4-8.2)
[2022-10-21 06:14] LABS: Source, Urine Clean Catch
[2022-10-21 06:18] LABS: Appearance, Urine Hazy (Clear); Bilirubin, Urine Neg (Neg); Blood, Urine 2+ (Neg); Color, Urine Amber (P-Yellow); Glucose Qualitative, Urine Neg (Neg); Ketones, Urine 2+ (Neg); Leukocyte Esterase, Urine 3+ (Neg); Nitrite, Urine Pos (Neg); Protein, Urine 2+ (Neg); Urobilinogen, Urine 1+ (Normal); pH, Urine 6.5 (5.0-8.0)
[2022-10-21 06:30] LABS: Squamous Epithelial Cells Rare /hpf (Few)
[2022-10-21 06:31] LABS: Bacteria Many /hpf; Red Blood Cells, Urine 25-50 /hpf (0-2); White Blood Cells, Urine 25-50 /hpf (0-5)
[2022-10-21 06:32] LABS: Renal Epithelial Rare /hpf (0-Rare); Transitional Epithelial Cells Rare /hpf (0-Rare)
[2022-10-21 07:36] VITALS: BP 116/69
[2022-10-21 12:02] VITALS: BP 89/60
--- NOTE | 2022-10-21 14:26 | NUR ---
RN/ DAY SHIFT SUMMARY MORNING SHIFT REPORT RECIEVED AT BEDSIDE DURING MORNING GREETING. THE PATIENT WAS ASSESSED AND MEDICATIONS WHERE PASSES WITH NO COMPLICATIONS. THE PATIENT WAS RECEIVING POTASSIUM VIA IV AND THE PROVIDER WAS NOTIFIED ONCE THE POTASSIUM FINISHED ALONG WITH WOUNDS THAT WERE HEALING ON BOTH FEET. THE PROVIDER WILL ORDER A REPEAT POTASSIUM FOR CONSIDERATION FOR DC VERSUS OVERNIGHT STAY. WILL CONTINUE TO MONITOR.
[2022-10-21 16:26] VITALS: BP 132/66
[2022-10-21 18:58] VITALS: BP 141/97
[2022-10-22 04:26] LABS: BASOPHILS ABSOLUTE AUTO 0.01 K/mm3 (0.00-0.23); BASOPHILS PERCENT AUTO 0 % (0-2); EOSINOPHILS ABSOLUTE AUTO 0.03 K/mm3 (0.00-0.68); EOSINOPHILS PERCENT AUTO 1 % (0-6); Hemoglobin 9.4 g/dL (11.5-16.0); IMMATURE GRAN ABSOLUTE AUTO 0.05 K/mm3 (0.00-0.10); IMMATURE GRAN PERCENT AUTO 1 % (0-1); LYMPHOCYTES ABSOLUTE AUTO 1.22 K/mm3 (0.84-5.20); LYMPHOCYTES PERCENT AUTO 26 % (21-46); MONOCYTES ABSOLUTE AUTO 0.61 K/mm3 (0.16-1.47); MONOCYTES PERCENT AUTO 13 % (4-13); Mean Corpuscular HGB 35.6 pg (26.0-34.0); Mean Corpuscular HGB Conc 34.8 g/dL (31.5-36.5); Mean Corpuscular Volume 102 fL (80-100); Mean Platelet Volume 8.8 fL (9.1-12.4); NEUTROPHILS ABSOLUTE AUTO 2.82 K/mm3 (1.96-9.15); NEUTROPHILS PERCENT AUTO 60 % (41-73); Platelet Count 181 K/mm3 (150-400); RDW Standard Deviation 56.3 fL (35.1-46.3); Red Blood Cell Count 2.64 M/mm3 (3.80-5.20); White Blood Cell Count 4.74 K/mm3 (4.00-11.30)
[2022-10-22 04:27] VITALS: BP 94/59
[2022-10-22 04:57] LABS: Albumin, Blood 1.9 g/dL (3.4-5.0); Anion Gap 5 mmol/L (6-16); Blood Urea Nitrogen 11 mg/dL (8-24); Bun/Creatinine Ratio 14.7 (12.0-20.0); CO2, Blood 33 mmol/L (21-32); Calcium, Blood 7.7 mg/dL (8.5-10.1); Chloride, Blood 95 mmol/L (98-108); Creatinine, Blood 0.75 mg/dL (0.40-1.00); Ferritin, Serum 368 ng/mL (8-252); Glomerular Filtration Rate 86 (60-); Glucose, Blood 102 mg/dL (70-99); Iron Serum 44 ug/dL (50-170); Magnesium, Blood 2.3 mg/dL (1.6-2.4); Percent Saturation 31.4 % (15.0-50.0); Phosphorus, Blood 1.1 mg/dL (2.5-4.9); Potassium, Blood 3.5 mmol/L (3.5-5.5); Sodium, Blood 133 mmol/L (136-145); Total Iron Binding Capacity 140 ug/dL (250-450)
--- NOTE | 2022-10-22 05:08 | NUR ---
102.0 TEMP, TYLENOL GIVEN. WILL MONITOR AND REASSESS.
--- NOTE | 2022-10-22 05:09 | NUR ---
SHIFT SUMMARY TRANSFER FROM PCU, POSS. UTI AND AFIB W/ RVR. PT REMAINS ST@101. PT PLEASANTLY CONFUSED AT TIMES, NON IMPULSIVE. VSS W/ ELEVATED TEMP THIS A.M. MEDICATED W/ TYLENOL. DENIES PAIN, N/T, N/V, OR SOB. INCONTINENT OF URINE, AMB TO ASSIST/ WALKER TO BATHROOM. SLEPT T/O NIGHT. REQUESTING SOCIAL CONSULT FOR ASSISTANCE IN HOME.INFORMATION GIVEN FOR SENIORS/ DISABILITY SERVICES. PT HOPING FOR DISCHARGE TODAY. WILL REPORT OFF TO DAY SHIFT STAFF.
[2022-10-22 07:03] VITALS: BP 97/68
[2022-10-22] MEDS ORDERED: CEPH500 PO (12:02)
--- NOTE | 2022-10-22 13:39 | NUR ---
1310 discharged to home with , pt upin room with standby assist, denies pain or sob. pt in agreement with plan to discharge home with home health follow up. radha po food and fluids without nausea. voiding clear heidy urine. incontinent at times and attends in place
== END 2022-10-22 15:13 | disposition home or self-care (01) | DRG 641 ==
LOC: ER 15:50 → PCU 15:51 → ER 15:51 → PCU 15:51 → SURS 10-21 14:46 → PCU 10-21 14:46 → SURS 10-21 18:54
PROVIDERS: Emergency Medicine; Internal Medicine; Nurse Practitioner Acute Care; ADMIT Student in an Organized Health Care Education/Training Program
DX: E87.6 Hypokalemia (principal); F11.20 Opioid dependence, uncomplicated; I50.42 Chronic combined systolic (congestive) and diastolic (congestive) heart failure; N39.0 Urinary tract infection, site not specified; I48.0 Paroxysmal atrial fibrillation; E87.1 Hypo-osmolality and hyponatremia; I11.0 Hypertensive heart disease with heart failure; I25.10 Atherosclerotic heart disease of native coronary artery without angina pectoris; E86.0 Dehydration; G89.29 Other chronic pain; K21.9 Gastro-esophageal reflux disease without esophagitis; B96.20 Unspecified Escherichia coli [E. coli] as the cause of diseases classified elsewhere; M19.90 Unspecified osteoarthritis, unspecified site; D63.8 Anemia in other chronic diseases classified elsewhere; E78.5 Hyperlipidemia, unspecified; E03.9 Hypothyroidism, unspecified; E86.1 Hypovolemia; N32.81 Overactive bladder; Z88.8 Allergy status to other drugs, medicaments and biological substances; Z91.030 Bee allergy status; Z79.01 Long term (current) use of anticoagulants; Z79.02 Long term (current) use of antithrombotics/antiplatelets; Z79.51 Long term (current) use of inhaled steroids; Z79.890 Hormone replacement therapy; Z79.899 Other long term (current) drug therapy; Z86.73 Personal history of transient ischemic attack (TIA), and cerebral infarction without residual deficits; I25.2 Old myocardial infarction; Z95.2 Presence of prosthetic heart valve; Z95.5 Presence of coronary angioplasty implant and graft; Z90.710 Acquired absence of both cervix and uterus; Z90.49 Acquired absence of other specified parts of digestive tract; Z90.89 Acquired absence of other organs; Z98.890 Other specified postprocedural states; Z85.3 Personal history of malignant neoplasm of breast; Z90.12 Acquired absence of left breast and nipple; Z85.51 Personal history of malignant neoplasm of bladder; Z86.79 Personal history of other diseases of the circulatory system
CPT/HCPCS: 36415; 71045; 80053; 80069; 81001; 82728; 82803; 83540; 83550; 83605; 83735; 83880; 84132; 84443; 84484; 85025; 87086; 93005; 93010; 94760; 96365; 96366; 96367; 96368; 96375; 96376; 99284-25; A9270; G0378; J0696; J2405; J3480; J7030; J7050; J7060

== ENCOUNTER → 2022-10-20 | Outpatient (CLI) | payer BC ==
[~2022-10-20] MED LIST changes: +CEPH500 PO; +FAMO20 PO; +METOPROLOL SUCC25 MG PO; +POTA8 PO
[2022-10-20 14:43] LABS: BASOPHILS ABSOLUTE AUTO 0.04 K/mm3 (0.00-0.23); BASOPHILS PERCENT AUTO 1 % (0-2); EOSINOPHILS ABSOLUTE AUTO 0.01 K/mm3 (0.00-0.68); EOSINOPHILS PERCENT AUTO 0 % (0-6); Hematocrit 38.2 % (33.0-51.0); Hemoglobin 14.3 g/dL (11.5-16.0); IMMATURE GRAN ABSOLUTE AUTO 0.05 K/mm3 (0.00-0.10); IMMATURE GRAN PERCENT AUTO 1 % (0-1); LYMPHOCYTES ABSOLUTE AUTO 1.01 K/mm3 (0.84-5.20); LYMPHOCYTES PERCENT AUTO 12 % (21-46); MONOCYTES ABSOLUTE AUTO 0.67 K/mm3 (0.16-1.47); MONOCYTES PERCENT AUTO 8 % (4-13); Mean Corpuscular HGB 36.6 pg (26.0-34.0); Mean Corpuscular HGB Conc 37.4 g/dL (31.5-36.5); Mean Corpuscular Volume 98 fL (80-100); Mean Platelet Volume 9.1 fL (9.1-12.4); NEUTROPHILS ABSOLUTE AUTO 6.71 K/mm3 (1.96-9.15); NEUTROPHILS PERCENT AUTO 79 % (41-73); Platelet Count 256 K/mm3 (150-400); RDW Coefficient Variation 14.4 % (11.7-14.2); Red Blood Cell Count 3.91 M/mm3 (3.80-5.20); White Blood Cell Count 8.49 K/mm3 (4.00-11.30)
[2022-10-20 14:55] LABS: Albumin, Blood 2.7 g/dL (3.4-5.0); Albumin/Globulin Ratio 0.5 (0.8-1.8); Bilirubin, Total 1.4 mg/dL (0.1-1.0); Bun/Creatinine Ratio 10.3 (12.0-20.0); Calcium, Blood 9.1 mg/dL (8.5-10.1); Creatinine, Blood 1.17 mg/dL (0.40-1.00); Globulin, Blood 5.3 g/dL (2.2-4.0)
[2022-10-20 14:57] LABS: Potassium, Blood 2.4 mmol/L (3.5-5.5)
== END | disposition home or self-care (01) ==
LOC: LAB 14:39 → LAB SHORT 14:39
PROVIDERS: Physician Assistant
DX: R53.83 Other fatigue (principal); R32 Unspecified urinary incontinence
CPT/HCPCS: 80053; 85025; 87077; 87086; 87186

== ENCOUNTER 2022-11-29 20:48 | Observation (INO) | payer MEDICARE, BC ==
[~2022-11-29] VITALS: Ht 167.6 cm; Wt 89.1 kg
[~2022-11-29 20:48] MED LIST changes: +CEPH500 PO; +FAMO20 PO; +METOPROLOL SUCC25 MG PO; +POTA8 PO
[2022-11-29 21:19] LABS: BASOPHILS ABSOLUTE AUTO 0.01 K/mm3 (0.00-0.23); BASOPHILS PERCENT AUTO 0 % (0-2); EOSINOPHILS ABSOLUTE AUTO 0.01 K/mm3 (0.00-0.68); EOSINOPHILS PERCENT AUTO 0 % (0-6); Hematocrit 32.8 % (33.0-51.0); Hemoglobin 11.2 g/dL (11.5-16.0); IMMATURE GRAN ABSOLUTE AUTO 0.04 K/mm3 (0.00-0.10); IMMATURE GRAN PERCENT AUTO 1 % (0-1); LYMPHOCYTES ABSOLUTE AUTO 1.08 K/mm3 (0.84-5.20); LYMPHOCYTES PERCENT AUTO 19 % (21-46); MONOCYTES ABSOLUTE AUTO 0.57 K/mm3 (0.16-1.47); MONOCYTES PERCENT AUTO 10 % (4-13); Mean Corpuscular HGB 36.1 pg (26.0-34.0); Mean Corpuscular HGB Conc 34.1 g/dL (31.5-36.5); Mean Corpuscular Volume 106 fL (80-100); Mean Platelet Volume 10.1 fL (9.1-12.4); NEUTROPHILS ABSOLUTE AUTO 4.12 K/mm3 (1.96-9.15); NEUTROPHILS PERCENT AUTO 71 % (41-73); Platelet Count 149 K/mm3 (150-400); RDW Standard Deviation 58.8 fL (35.1-46.3); White Blood Cell Count 5.83 K/mm3 (4.00-11.30)
[2022-11-29 21:34] LABS: Acetaminophen, Random <2.0 ug/mL (10.0-30.0); Magnesium, Blood 2.2 mg/dL (1.6-2.4)
[2022-11-29 21:48] LABS: U Opiates Screen DETECTED; U Oxycodone Screen DETECTED
[2022-11-29 21:49] LABS: U Amphetamine Screen Not Detected; U Barbituate Screen Not Detected; U Benzodiazapine Screen Not Detected; U Buprenorphine Screen Not Detected; U Cannabinoids Screen Not Detected; U Cocaine Screen Not Detected; U Methadone Screen Not Detected; U Methamphetamine Screen Not Detected; U Phencyclidine Screen Not Detected; U Propoxyphene Screen Not Detected
[2022-11-29 21:53] LABS: Base Excess Venous 1.1 mmol/L; Bicarbonate Venous 25.6 mmol/L (24.0-30.0); PCO2 Venous 32.9 mmHg (38-42); pH Blood Venous 7.48 (7.34-7.37)
[2022-11-29 22:16] LABS: Alanine Aminotransfer (ALT/SGP 40 U/L (12-78); Albumin, Blood 1.8 g/dL (3.4-5.0); Albumin/Globulin Ratio 0.4 (0.8-1.8); Alk Phos 389 U/L (50-136); Anion Gap 9 mmol/L (6-16); Aspartate Aminotrans (AST/SGOT 118 U/L (12-37); Bilirubin, Total 1.5 mg/dL (0.1-1.0); Blood Urea Nitrogen 12 mg/dL (8-24); Bun/Creatinine Ratio 13.5 (12.0-20.0); CO2, Blood 24 mmol/L (21-32); Calcium, Blood 8.3 mg/dL (8.5-10.1); Chloride, Blood 100 mmol/L (98-108); Creatinine, Blood 0.89 mg/dL (0.40-1.00); Ethanol (Alcohol), Blood, Med <3 mg/dL; Globulin, Blood 4.5 g/dL (2.2-4.0); Glomerular Filtration Rate 70 (60-); Glucose, Blood 136 mg/dL (70-99); Potassium, Blood 3.6 mmol/L (3.5-5.5); Sodium, Blood 133 mmol/L (136-145); Total Protein, Blood 6.3 g/dL (6.4-8.2)
[2022-11-29 22:19] LABS: Salicylate <1.7 mg/dL (2.8-20.0)
[2022-11-29 23:43] LABS: Free Thyroxine 1.47 ng/dL (0.70-1.60)
[2022-11-29 23:48] LABS: Thyroid Stimulating Hormone 2.35 uIU/mL (0.360-4.800)
[2022-11-30] VITALS (32 sets, daily range): BP systolic 93–148; BP diastolic 36–92
[2022-11-30] MEDS ORDERED: ISODIN20 PO (00:50)
--- NOTE | 2022-11-30 01:56 | NUR ---
PT ARRIVED FROM ED AT 0005 A/OX4, PLEASANT AND COOPERATIVE. SR 60'S-70'S. BP SOFT, LEVOPHED INFUSING AT 6 UPON ARRIVAL. LUNGS CTA, ROOM AIR, SP02 > 94%. SIPS OF WATER, NO DIFFICULTY SWALLOWING, DENIES NAUSEA, BS NORMOACTIVE. PT REPORTS BASELINE IS 1-2 LOOSE STOOLS DAILY, TAKES ROUTINE LAXATIVE. VOIDS, STRAIGHT CATH IN ER, NO UO SINCE ARRIVAL TO ICU. SKIN LARGELY INTACT WITH OPEN AREA TO BOTTOM OF RIGHT FOOT AND LEFT GREAT TOE. PIV TO LEFT AC AND RIGHT UPPER ARM, BOTH FLUSH WELL AND DRAW BLOOD. SON DROPPED OFF BELONGINGS TO BEDSIDE. PT EDUCATED ON IGNITION SOURCES, SHE DENIES SMOKING, NO IGNITION SOURCES IDENTIFIED IN BELONGINGS. RN TO CONTINUE TO MONITOR.
[2022-11-30 02:08] LABS: International Normalized Ratio 1.3; Prothrombin Time Results 13.4 Sec (9.7-11.5)
[2022-11-30 02:15] LABS: Albumin, Blood 2.1 g/dL (3.4-5.0); Albumin/Globulin Ratio 0.6 (0.8-1.8); Bilirubin, Total 1.5 mg/dL (0.1-1.0); Bun/Creatinine Ratio 13.4 (12.0-20.0); Calcium, Blood 7.8 mg/dL (8.5-10.1); Creatinine, Blood 0.75 mg/dL (0.40-1.00); Globulin, Blood 3.4 g/dL (2.2-4.0); Potassium, Blood 3.1 mmol/L (3.5-5.5); Total Protein, Blood 5.5 g/dL (6.4-8.2)
[2022-11-30 02:18] LABS: BASOPHILS ABSOLUTE AUTO 0.03 K/mm3 (0.00-0.23); BASOPHILS PERCENT AUTO 1 % (0-2); EOSINOPHILS ABSOLUTE AUTO 0.01 K/mm3 (0.00-0.68); EOSINOPHILS PERCENT AUTO 0 % (0-6); Hematocrit 27.6 % (33.0-51.0); Hemoglobin 9.3 g/dL (11.5-16.0); IMMATURE GRAN ABSOLUTE AUTO 0.06 K/mm3 (0.00-0.10); IMMATURE GRAN PERCENT AUTO 1 % (0-1); LYMPHOCYTES ABSOLUTE AUTO 1.45 K/mm3 (0.84-5.20); LYMPHOCYTES PERCENT AUTO 25 % (21-46); MONOCYTES ABSOLUTE AUTO 0.49 K/mm3 (0.16-1.47); MONOCYTES PERCENT AUTO 8 % (4-13); Mean Corpuscular HGB 35.5 pg (26.0-34.0); Mean Corpuscular HGB Conc 33.7 g/dL (31.5-36.5); Mean Corpuscular Volume 105 fL (80-100); NEUTROPHILS ABSOLUTE AUTO 3.77 K/mm3 (1.96-9.15); NEUTROPHILS PERCENT AUTO 65 % (41-73); Platelet Count 126 K/mm3 (150-400); RDW Coefficient Variation 15.2 % (11.7-14.2); Red Blood Cell Count 2.62 M/mm3 (3.80-5.20); White Blood Cell Count 5.81 K/mm3 (4.00-11.30)
--- NOTE | 2022-11-30 06:24 | NUR ---
NOC SHIFT SUMMARY A/O X4, PLEASANT AND COOPERATIVE. SR, BP STABLE, LEVOPHED WEANED OFF. ROOM AIR, OX SAT > 95%. DENIES NAUSEA, TOLERATING WATER, NO ISSUES SWALLOWING. PUREWICK IN PLACE. SKIN INTACT. PIV X2 BOTH FLUSH AND WITHDRAW BLOOD. PT UPDATING FAMILY VIA PERSONAL CELL. ALL QUESTIONS ANSWERED. PT IS HOPING TO GO HOME TODAY. DISCUSSED NEED FOR PLAN AROUND HER NARCOTIC PAIN MEDICATION TO MAINTAIN HER SAFETY. PT STATES HER SON WILL BE TAKING CONTROL OF HER MEDICATION AND GIVING THEM TO HER APPROPRIATELY. HER SON LIVES NEXT DOOR. RN TO CONTINUE TO MONITOR.
[2022-11-30 06:41] LABS: Source, Urine Clean Catch
[2022-11-30 07:31] LABS: Appearance, Urine Turbid (Clear); Blood, Urine 1+ (Neg); Color, Urine Amber (P-Yellow); Glucose Qualitative, Urine Neg (Neg); Ketones, Urine Neg (Neg); Leukocyte Esterase, Urine Neg (Neg); Nitrite, Urine Neg (Neg); Protein, Urine 2+ (Neg); Urobilinogen, Urine 1+ (Normal)
[2022-11-30 08:12] LABS: Bilirubin, Urine 1+ (Neg)
[2022-11-30 08:13] LABS: Squamous Epithelial Cells Few /hpf (Few)
[2022-11-30 08:14] LABS: Bacteria Many /hpf; Mucus Light (0-Heavy)
[2022-11-30 08:15] LABS: Amorphous Heavy (0-Heavy)
--- NOTE | 2022-11-30 08:25 | NUR ---
ASSUMED CARE: REPORT RECEIVED FROM [place] Mariee RN. ASSUMED CARE OF THIS PT AT APPROX 0700. ON ASSESSMENT, THE PT IS A&O, PLEASANT & COOPERATIVE W/ CARE. EXCELLENT HISTORIAN REGARDING MEDICAL HX, WAS A NURSE PRIOR TO RETIRING. SHE CONTINUES TO DENY SI R/T OPIATE OVERDOSE OF PRESCRIBED OXYCODONE. LS W/ FINE CRACKLES IN LLL. DEEP BREATHING & COUGHING ENCOURAGED. PT ON RA W/ O2 SATS > 95%. MONITOR SHOWS SR W/ HR 60s, BP STABLE W/ SBP 100s & MAP > 65. PT HAS A HIATAL HERNIA & DIFFICULTY EATING LARGE PORTIONS, BUT STS BEING HUNGRY. ORDERS OBTAINED FOR CARDIAC DIET & SHE WILL ATTEMPT TO EAT THIS AM. URINARY FREQUENCY NOTED, PUREWICK IN PLACE W/ DARK YELLOW URINE NOTED IN CANISTER. SKIN OVERALL INTACT, FRAGILE. SMALL OPEN AREAS TO BILAT FEET NOTED THAT PT STS ARE CHRONIC, WELL-DRESSED W/ BANDAGES IN PLACE. Q2H REPOSITIONING TO MAINTAIN SKIN INTEGRITY. WILL CONTINUE TO MONITOR & UPDATE NEEDED.
--- NOTE | 2022-11-30 09:45 | NUR ---
DR CALVERT: PROVIDER AT BEDSIDE THIS AM TO EVAL PT. SHE STS THE PT IS OKAY TO BE MEDICAL STATUS W/ NO TELE. THE PT CONTINUES TO DENY ANY SI. DR SMITH CONSULT ORDERED TO ENSURE THAT PT IS SAFE FOR DISCHARGE HOME. IF CLEARED BY DR SMITH, THE PT MAY BE DISCHARGED THIS EVENING. PANTOPRAZOLE ORDERED PER HOME DOSING AT PT REQUEST. NO OTHER CHANGES AT THIS TIME.
--- NOTE | 2022-11-30 16:21 | NUR ---
Pt. is awake in bed and welcomes my visit. Pt. is pleasant. 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 Pt. is unsettled by the implications of a hiatal hernia she has had for years. Listen with empathy, interest and a calming presence. Rapport is established and Pt. displays evidence of confidence and trust. Prayed with Pt. Pt. verbalized gratitude for the spiritual care visit.
--- NOTE | 2022-11-30 17:40 | NUR ---
DISCHARGE TO HOME: DISCHARGE EDUCATION HAS BEEN COMPLETED W/ THE PT & HER , ALEX. THEY VERBALIZE UNDERSTANDING OF INSTRUCTIONS & STATE NO FURTHER QUESTIONS. PIVs & ALL MONITORS HAVE BEEN REMOVED. THE PT HAS BEEN TAKEN OUT VIA WC AT APPROX 1740 W/ ALL BELONGINGS.
== END 2022-11-30 17:40 | disposition home or self-care (01) ==
LOC: ER 20:48 → ICUE 20:49
PROVIDERS: Student in an Organized Health Care Education/Training Program; ADMIT Internal Medicine
DX: T40.2X1A Poisoning by other opioids, accidental (unintentional), initial encounter (principal); F43.21 Adjustment disorder with depressed mood; I25.10 Atherosclerotic heart disease of native coronary artery without angina pectoris; I50.42 Chronic combined systolic (congestive) and diastolic (congestive) heart failure; I11.0 Hypertensive heart disease with heart failure; I25.2 Old myocardial infarction; E03.9 Hypothyroidism, unspecified; E87.6 Hypokalemia; D64.9 Anemia, unspecified; E87.1 Hypo-osmolality and hyponatremia; D69.6 Thrombocytopenia, unspecified; Z88.6 Allergy status to analgesic agent; Z88.8 Allergy status to other drugs, medicaments and biological substances; Z86.73 Personal history of transient ischemic attack (TIA), and cerebral infarction without residual deficits
CPT/HCPCS: 36415; 51701; 80053; 81001; 82803; 83735; 83880; 84439; 84443; 85025; 85610; 93005; 93010; 96361; 96365; 96367; 96372; 99285-25; A9270; G0378; G0480; J1650; J2310; J7030; J7060; P9047

== ENCOUNTER 2022-12-03 12:27 | Inpatient (IN) | payer MEDICARE, BC ==
[2022-12-03] VITALS (14 sets, daily range): BP systolic 60–103; BP diastolic 49–73
[~2022-12-03] VITALS: Ht 162.6 cm; Wt 93.0 kg
[~2022-12-03 12:27] MED LIST changes: +ISODIN20 PO
[2022-12-03 13:41] LABS: BASOPHILS ABSOLUTE AUTO 0.03 K/mm3 (0.00-0.23); BASOPHILS PERCENT AUTO 0 % (0-2); EOSINOPHILS ABSOLUTE AUTO 0.02 K/mm3 (0.00-0.68); EOSINOPHILS PERCENT AUTO 0 % (0-6); Hematocrit 34.7 % (33.0-51.0); Hemoglobin 11.5 g/dL (11.5-16.0); IMMATURE GRAN ABSOLUTE AUTO 0.06 K/mm3 (0.00-0.10); IMMATURE GRAN PERCENT AUTO 1 % (0-1); LYMPHOCYTES ABSOLUTE AUTO 1.45 K/mm3 (0.84-5.20); LYMPHOCYTES PERCENT AUTO 17 % (21-46); MONOCYTES ABSOLUTE AUTO 0.74 K/mm3 (0.16-1.47); MONOCYTES PERCENT AUTO 9 % (4-13); Mean Corpuscular HGB 35.6 pg (26.0-34.0); Mean Corpuscular HGB Conc 33.1 g/dL (31.5-36.5); Mean Corpuscular Volume 107 fL (80-100); Mean Platelet Volume 10.6 fL (9.1-12.4); NEUTROPHILS ABSOLUTE AUTO 6.27 K/mm3 (1.96-9.15); NEUTROPHILS PERCENT AUTO 73 % (41-73); Platelet Count 141 K/mm3 (150-400); RDW Coefficient Variation 14.8 % (11.7-14.2); RDW Standard Deviation 58.6 fL (35.1-46.3); Red Blood Cell Count 3.23 M/mm3 (3.80-5.20); White Blood Cell Count 8.57 K/mm3 (4.00-11.30)
[2022-12-03 13:57] LABS: Albumin, Blood 1.9 g/dL (3.4-5.0); Albumin/Globulin Ratio 0.4 (0.8-1.8); Bilirubin, Total 2.1 mg/dL (0.1-1.0); Bun/Creatinine Ratio 12.8 (12.0-20.0); Calcium, Blood 8.3 mg/dL (8.5-10.1); Creatinine, Blood 0.78 mg/dL (0.40-1.00); Globulin, Blood 4.5 g/dL (2.2-4.0); Potassium, Blood 3.7 mmol/L (3.5-5.5); Total Protein, Blood 6.4 g/dL (6.4-8.2)
[2022-12-03 18:47] LABS: Source, Urine Clean Catch
[2022-12-03 18:52] LABS: Appearance, Urine Hazy (Clear); Bilirubin, Urine Neg (Neg); Blood, Urine Neg (Neg); Color, Urine Yellow (P-Yellow); Glucose Qualitative, Urine Neg (Neg); Ketones, Urine Neg (Neg); Leukocyte Esterase, Urine 3+ (Neg); Nitrite, Urine Pos (Neg); Protein, Urine Neg (Neg); Specific Gravity, Urine 1.015 (1.003-1.022); Urobilinogen, Urine NORM (Normal)
[2022-12-03 19:02] LABS: Bacteria Many /hpf; Red Blood Cells, Urine Not Seen /hpf (0-2); Squamous Epithelial Cells Rare /hpf (Few); White Blood Cells, Urine 25-50 /hpf (0-5)
--- NOTE | 2022-12-03 21:00 | NUR ---
PT ADMITTED TO ROOM ICU 2 FROM ED ARRIVING AT 2030 THIS EVENING. PT ALERT AND ORIENTED. PLEASANT AND COOPERATIVE WITH CARE AND ASSESSMENT. SLIDE TRANSFERRED TO BED FROM [facility]. LEVOPHED PLACED TO ICU PUMP INITIALLY AT 3 MCG'S/MIN. HAVE SUBSEQUENTLY INCREASED TO 5 MCG'S/MIN. BLOOD PRESSURES NOW MAINTAINING WITH MAP > 65. WILL REVIEW CHART AND PLAN OF CARE FOR THIS PT.
[2022-12-03] MEDS ORDERED: CENTRUM SILVER1 EAC2 PO (22:17)
[2022-12-04] VITALS (61 sets, daily range): BP systolic 85–121; BP diastolic 49–98
--- NOTE | 2022-12-04 | NUR ---
PT HAS PUREWICK IN PLACE. HAS VOIDED 220 ML URINE. PT STATES THAT SHE HAS BECOME INCONTINIENT TO URINE OVER PAST FEW WEEKS. HAS HAD VERY POOR APPETITE. STATES THAT SHE HAS A HIATAL HERNIA WHICH HAS MADE IT HARDER FOR HER TO SWALLOW. PT ABLE TO EAT SEVERAL CUPS OF JELLO. 1/2 CONTAINER OF ENSURE CLEAR. LEVOPHED MAINTAINED AT 5 MCG'S/MIN. WILL CONTINUE TO MONITOR.
[2022-12-04 05:19] LABS: Hematocrit 24.5 % (33.0-51.0); Hemoglobin 7.9 g/dL (11.5-16.0); Mean Corpuscular HGB 35.1 pg (26.0-34.0); Mean Corpuscular HGB Conc 32.2 g/dL (31.5-36.5); Mean Corpuscular Volume 109 fL (80-100); Platelet Count 116 K/mm3 (150-400); RDW Coefficient Variation 15.1 % (11.7-14.2); RDW Standard Deviation 60.3 fL (35.1-46.3); Red Blood Cell Count 2.25 M/mm3 (3.80-5.20); White Blood Cell Count 5.86 K/mm3 (4.00-11.30)
[2022-12-04 05:42] LABS: Magnesium, Blood 1.9 mg/dL (1.6-2.4)
[2022-12-04 05:54] LABS: Albumin, Blood 2.1 g/dL (3.4-5.0); Albumin/Globulin Ratio 0.7 (0.8-1.8); Bilirubin, Total 1.3 mg/dL (0.1-1.0); Bun/Creatinine Ratio 14.8 (12.0-20.0); Creatinine, Blood 0.68 mg/dL (0.40-1.00); Potassium, Blood 2.4 mmol/L (3.5-5.5); Total Protein, Blood 5.1 g/dL (6.4-8.2)
--- NOTE | 2022-12-04 06:30 | NUR ---
CALL MADE TO DR DUGAN WITH AM LABS. CONCERNING POTASSIUM AT 2.4 AND HGB DROPPING TO 7.9. ORDERS RECEIVED. PT HAS NO S/S BLEEDING AT THIS TIME. HAS BEEN INFORMED OF HER LOW POTASSIUM LEVEL AND HER DROPPING HGB. PT ADMITS THAT SHE HAS ONGOING ISSUES WITH LOW POTASSIUM. WILL CONTINUE TO MONITOR PT, AND WILL REPORT OFF TO ONCOMING RN.
--- NOTE | 2022-12-04 07:00 | NUR ---
ASSUMPTION OF CARE PT IS RECEIVING LEVOPHED 3MCG/MIN AND NS 150ML/HR. SHE IS ALERT AND ORIENTED DURING BEDSIDE REPORT. ON RA WITH SPO2 >95%. SINUS RHTYHM WITH OCCASIONAL PACS ON MONITOR, RATE 60S-70S. SBP 100S-110S WITH LEVOPHED, WILL TITRATE NEEDED. PT REQUESTING CUP TO "SPIT IN". SHE STS SHE OFTEN DOES THIS AT HOME. SHE DENIES NAUSEA BUT ADMITS TO DECREASED APPETITE AND DIFFICULTY SWALLOWING FOOD AND PILLS. PUREWICK IN PLACE WITH DARK YELLOW URINE IN CANISTER. CALL LIGHT WITHIN REACH, SEE SHIFT ASSESSMENT.
--- NOTE | 2022-12-04 08:22 | NUR ---
DYSPHAGIA PT REPORTS DYSPHAGIA AT BASELINE BUT DENIES AN ALTERNATIVE DIET WHEN OFFERED. PT GIVEN BREAKFAST TRAY AND MONITORED. AFTER APPROX 3 BITES, PT BEGINS TO COUGH AND SPIT INTO CUP. SHE REPORTS THIS "HAPPENS ALOT" AT HOME. MEAL TRAY DISCARDED. SPO2 >95% ON RA, LUNG SOUNDS UNCHANGED.
[2022-12-04 13:10] LABS: Hematocrit 26.6 % (33.0-51.0); Hemoglobin 8.7 g/dL (11.5-16.0)
--- NOTE | 2022-12-04 15:40 | NUR ---
TRANSFER TO PCU PT TRANSFERRED TO PCU 10 WITH BELONGINGS. NO CLOTHES IN ROOM AND ASKED PT IF HER SPOUSE TOOK HER CLOTHING AND SHE REPLIED "OH HE PROBABLY DID". , SAM, UPDATED ON TRANSFER.
--- NOTE | 2022-12-04 16:15 | NUR ---
PT ARRIVED TO PCU 10. PT NOTED ASSESSMENT PT NOTED TO HAVE A PILL IN HER ATTENDS, PILL APPEARS TO BE POTASSIUM, BUT IS IN HALF SO I CAN NOT DETERMINE FOR SURE THE PILL IDENTIFICATION. ATTEMPTED PO MEDICATIONS PT BEGINS TO GURGLE AND COUGH THEN REGURGITATES WATER INTO EMESIS BAG. DR BLAND IS CALLED AND UPDATED THAT PO MEDS ARE NOT SAFELY PASSING ORALLY. PROTONIX IS CHANGED TO IV AT THIS TIME FOR ASPIRATION PRECAUTION, PT WILL REMAIN NPO AT THIS TIME
--- NOTE | 2022-12-04 17:32 | NUR ---
VSS. PUREWICK IN PLACE. PO FLUIDS AND MEDS WILL BE HELD PT ASPIRATES ON FLUIDS, DR BLAND AWARE. SPEECH THERAPY CONSULT IS IN PLACE, SPEECH THERAPY WILL NOT BE AVAILABLE UNTIL TUESDAY. FAMILY AT BEDSIDE. PT AGREES NOT TO USE ANY INGITION SOURCES IN ROOM, AND WILL NOT USE TOBACCO OF ANY KIND IN ROOM.
[2022-12-05 00:43] VITALS: BP 131/98
[2022-12-05 02:21] VITALS: BP 138/110
[2022-12-05 04:08] LABS: Hematocrit 31.8 % (33.0-51.0); Hemoglobin 10.2 g/dL (11.5-16.0); Mean Corpuscular HGB 35.2 pg (26.0-34.0); Mean Corpuscular HGB Conc 32.1 g/dL (31.5-36.5); Mean Corpuscular Volume 110 fL (80-100); Mean Platelet Volume 9.9 fL (9.1-12.4); Platelet Count 132 K/mm3 (150-400); RDW Coefficient Variation 15.2 % (11.7-14.2); RDW Standard Deviation 61.7 fL (35.1-46.3); White Blood Cell Count 5.45 K/mm3 (4.00-11.30)
[2022-12-05 04:44] LABS: Albumin, Blood 2.3 g/dL (3.4-5.0); Albumin/Globulin Ratio 0.6 (0.8-1.8); Bilirubin, Total 1.6 mg/dL (0.1-1.0); Bun/Creatinine Ratio 11.7 (12.0-20.0); Calcium, Blood 7.5 mg/dL (8.5-10.1); Creatinine, Blood 0.68 mg/dL (0.40-1.00); Potassium, Blood 3.8 mmol/L (3.5-5.5); Total Protein, Blood 6.3 g/dL (6.4-8.2)
--- NOTE | 2022-12-05 07:20 | NUR ---
NOC SHIFT SUMMARY PT SLEPT WELL OVERNIGHT, WOKE UP WITH SOME CONFUSION AND REORIENTED. ON RA, VSS PER PT TREND. DENIES CP OR PRESSURE. MARGINAL UOP, DARK. PW IN PLACE. BLADDER SCAN SHOWED 350ML, PT THEN VOIDED 250. ST ON TELEMETRY. WILL PASS ON TO DAY RN
[2022-12-05 07:52] VITALS: BP 109/82
--- NOTE | 2022-12-05 10:00 | NUR ---
AM NOTES; PT WAS MORE ALERT AND TALKING MORE AT BASELINE, ALERT AND ORIENTED X3, PT STATED "I DIDNT EVEN KNOW I WAS IN THE HOSPITAL TIL THIS MORNING". PT ABLE TO ANSWER QUESTIONS APPROPRIATELY, VITALS HRR SR 80'S, SBP 100-130'S, SATS ABOVE 95% ON RA, AFEBRILE. PT HAS SHOULDER PAIN THAT WAS MEDICATED WITH TYLENOL. PT HAS DYSPHAGIA AT BASELINE ST EVAL ORDERED AWAITING TIL TOMORROW FOR EVAL. PT WAS ABLE TO TOLERATE MEDS WHOLE WITH APPLESAUCE AND THIN LIQUIDS PT STATED SHE DIFFICULTY SWALLOWING AT HOME AT TIMES DUE TO HIATAL HERNIA. DISCUSSED ISSUES WITH DR PARDEEP VASQUEZ TO START PT ON SOFT DIET. FOR FURTHER EVAL IN AM BY SPEECH THEAPIST. FLUIDS WERE STOPPED DUE TO HX OF HF TO PREVENT FLUID OVERLOAD. PT STILL HAS PENDING GI PANEL PT HASNT HAD ANY BM SINCE ADMISSION. PT'S AND SON AT THE BEDSIDE THIS MORNING WAS GIVEN UPDATE REGARDING PT'S STATUS. NO OTHER ISSUES ENCOUNTERED. BED BATH WAS COMPLETED THIS MORNING. PT REPOSITIONED IN BED FOR COMFORT. WILL CONTINUE TO MONITOR
[2022-12-05 11:53] VITALS: BP 127/74
--- NOTE | 2022-12-05 12:29 | NUR ---
PT TRANSITIONED TO MEDICAL STATUS NO TELE. REPORT GIVEN TO CALI QUINTANA. ALL BELONGINGS SENT WITH THE PT, AT THE BEDSIDE DURING THE TRANSFER.
--- NOTE | 2022-12-05 12:32 | NUR ---
PT ARRIVED TO MEDICAL FLOOR @1135AM ACCOMPANIED BY , SAM. PATIENT IMMEDIATELY REQUESTED BE REMOVED FROM ROOM WHILE SHE HAD TITA OBTAINED AND DID NOT WANT IT WRITTEN ON WHITEBOARD STATING HE WOULD "HECKLE HER ABOUT IT". TRIED A FEW BITES OF JELLO AND IMMEDIATELY BECAME NAUSEA; 4MG ZOFRAN IV ADMINISTERED. CONTINUES TO C/O "HIATAL HERNIA PAIN"; NOT TIME FOR APAP YET AND DOES NOT HAVE ALTERNATIVE PAIN MEDS AVAILABLE D/T Hx OPIOID OD. ENCOURAGED SMALL, THOROUGH BITES OF FOOD.
[2022-12-05 15:53] VITALS: BP 132/86
--- NOTE | 2022-12-05 17:46 | NUR ---
ISOLATION ORDER DC'D: PT >72H NO BOWEL MOVEMENT R/O C-DIFF
[2022-12-05 19:37] VITALS: BP 126/88
--- NOTE | 2022-12-05 20:01 | NUR ---
DAY SHIFT SUMMARY: A&Ox4. PLEASANT AND COOPERATIVE WITH CARE. CONTINUES TO REMAIN BEDFAST; PUREWICK FOR URINATION. DID NOT MOVE BOWELS TODAY; HYPOACTIVE BOWEL TONES SHE ATTRIBUTES TO TAKING LOPERAMIDE BEFORE PRESENTING TO ED. SCATTERED BRUISING IN VARIOUS STAGES OF HEALING SHE ATTRIBUTES TO FALLING. REPORT TO ONCOMING RN.
--- NOTE | 2022-12-06 03:00 | NUR ---
shift summery pt resting in bed, pt earlier had requested soemhing to drink, pt had been choaking on her drinks. pt was given a honey thick apple juice and pt did very well with it and requested a second drink. pt voiding with purewick on. Fire safety reviewed. call light in reach.
[2022-12-06 05:05] VITALS: BP 125/97
[2022-12-06 07:36] VITALS: BP 127/106
--- NOTE | 2022-12-06 07:57 | NUR ---
Pt with increase BP and HR. HR irregular. Pt denies chest pain or any other sx. Dr Pfeiffer informed and will review home meds for further orders.
[2022-12-06 13:50] VITALS: BP 136/93
[2022-12-06 16:25] VITALS: BP 124/91
--- NOTE | 2022-12-06 16:43 | NUR ---
Tele placed on pt and has had 4 runs of SVT per telephonic nurse case manager. Pt asymptomatic. Dr. Pfeiffer made aware. Will continue to monitor.
--- NOTE | 2022-12-06 17:35 | NUR ---
SHIFT SUMMARY: Pt remains A&O X3 this shift. Generalized weakness noted. Increased HR 166 this am with new order to give po BB. HR decreased to 90-100. Pt asymptomatic. Tele reordered and is ST. See previous note. LSCTA, diminished. Incontinent of urine, purewick in place. No BM this shift. Able to swallow whole pills in pudding without difficulty. ST eval complete, diet changed to mech soft. Nausea resolved with meds as ordered. Repositioned for comfort, HOB elevated with oral intake. Call light in reach. Dr. Pfeiffer at bedside 1500 to answer all pt and spouse questions. No further needs id or verbalized at this time. Will continue to monitor this shift.
[2022-12-06 19:40] VITALS: BP 136/90
[2022-12-07 02:53] VITALS: BP 127/82
[2022-12-07 04:06] LABS: Stool Occult Blood Guaiac 1 Pos (Neg)
[2022-12-07 04:55] LABS: Hematocrit 30.4 % (33.0-51.0); Hemoglobin 9.8 g/dL (11.5-16.0); Mean Corpuscular HGB 34.8 pg (26.0-34.0); Mean Corpuscular HGB Conc 32.2 g/dL (31.5-36.5); Mean Corpuscular Volume 108 fL (80-100); Mean Platelet Volume 9.7 fL (9.1-12.4); Platelet Count 157 K/mm3 (150-400); RDW Standard Deviation 59.7 fL (35.1-46.3); Red Blood Cell Count 2.82 M/mm3 (3.80-5.20); White Blood Cell Count 5.53 K/mm3 (4.00-11.30)
[2022-12-07 05:20] LABS: Bun/Creatinine Ratio 9.3 (12.0-20.0); Calcium, Blood 7.9 mg/dL (8.5-10.1); Creatinine, Blood 0.65 mg/dL (0.40-1.00); Potassium, Blood 3.9 mmol/L (3.5-5.5)
[2022-12-07 06:02] LABS: Campylobacter Sp Not Detected (NOT DETECT); Cryptosporidium Not Detected (NOT DETECT); Cyclospora Cayetanensis Not Detected (NOT DETECT); E. Coli O157 Not Detected (NOT DETECT); Entamoeba Histolytica Not Detected (NOT DETECT); Enteroaggregative E. coli-EAEC Not Detected (NOT DETECT); Enteropathogenic E. coli-EPEC Not Detected (NOT DETECT); Enterotoxigenic E. coli-ETEC Not Detected (NOT DETECT); Giardia Lamblia Not Detected (NOT DETECT); Plesiomonas Shigelloides Not Detected (NOT DETECT); Salmonella Sp Not Detected (NOT DETECT); Shiga Toxin-prod E. coli-STEC Not Detected (NOT DETECT); Shigella/Enteroin E. coli-EIEC Not Detected (NOT DETECT); Vibrio Cholerae Not Detected (NOT DETECT); Vibrio Sp Not Detected (NOT DETECT); Yersinia Enterocolitica Not Detected (NOT DETECT)
[2022-12-07 06:03] LABS: Adenovirus F 40/41 Not Detected (NOT DETECT); Astrovirus Not Detected (NOT DETECT); Norovirus GI/GII Not Detected (NOT DETECT); Rotavirus A Not Detected (NOT DETECT); Sapovirus Not Detected (NOT DETECT)
--- NOTE | 2022-12-07 06:11 | NUR ---
SHIFT SUMMARY A/OX4, BEDREST AT THIS TIME. SPO2 >92% ON RA. TELE SR/ST 80-110 WITH SMALL RUNS OF SVT, PT ASYMPTOMATIC, DENIES CHEST PAIN/PRESSURE. INCONT, PUREWICK IN PLACE. BM THIS SHIFT SENT TO LAB, GUAIC STOOL POSITIVE, NO ACTIVE SIGNS OF BLEEDING. VSS, NO ACUTE CHANGES AT THIS TIME. BED IN LOWEST POSITION WITH CALL LIGHT IN REACH. WILL CONTINUE TO MONITOR AND REPORT TO ONCOMING RN.
[2022-12-07 07:59] VITALS: BP 124/82
--- NOTE | 2022-12-07 12:45 | NUR ---
THIS RN ASSUMED CARE OF PT AT THIS TIME
[2022-12-07 14:21] LABS: Hematocrit 33.1 % (33.0-51.0); Hemoglobin 10.7 g/dL (11.5-16.0)
[2022-12-07 15:32] VITALS: BP 117/84
--- NOTE | 2022-12-07 16:04 | NUR ---
"Spiritual Care Visit | Pt. request Pt. is awake in bed and welcomes my visit. Pt. is unsettled by pain in her abdomen. Listen with empathy and a calming presence. Pt. verbalizes that her main support is her . Pt. displayed evidence of being lonely so I facilitated a short life review. Pt. displayed evidence of awarenss and engagement. Prayed with Pt. Pt. 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
--- NOTE | 2022-12-07 18:15 | NUR ---
SHIFT SUMMARY PT A&OX4 AND IN PLEASENT MOOD T/O SHIFT. POWERGLIDE PLACED THIS SHIFT-ELISEO. PLAN FOR SCOPE TOMORROW PER VASQUEZ. PT ABLE TO EAT [facility] SOFT DIET-C/O N/V IMMEDIATLY AFTER CONSUMING MEC SOFT DIET. CALL LIGHT W/IN REACH. VSS.
[2022-12-07 19:53] VITALS: BP 115/77
[2022-12-08] VITALS (27 sets, daily range): BP systolic 75–154; BP diastolic 42–121
--- NOTE | 2022-12-08 00:32 | NUR ---
HR 160 TO 190 PT NOT IN DISTRESS STATES SHE CANT FEEL HER HEART RATE INCREASING. O2 98 RA, BP 110/89. MD AWARE LOPRESSOR 5MG PUSHED AT 0030, WILL CONTACT MD IF HR DOES NOT CONTROL.
--- NOTE | 2022-12-08 04:44 | NUR ---
SHIFT ASSESSMENT. A/O BUT HEEART RATE HIGH NO C/O PAIN NO DISTRESS. HEART RATE JUMPING INTO THE 190 S, PT DOES NOT SEEN TO NOTICE. MD NOTIFIED AND MEDICATION WAS PRESCRIBED, ADMINISTERED AND WILL MONITOR PT FOR DECREASED HEART RATE. HEART RATE CONTROLLED FOR A SHORT PERIOD THEN RETURNED TO HIGHER NUMBER. MD NOTIFIED AND BOLUS WAS ORDERED ALONG WITH TYLENOL FOR SLIGHT ELEVATION IN TEMP. PT DARRIN WELL SHOWS NO DISTRESS. CONTINOUSE CALLS FROM SR. MEDIA MANAGER TO VERIFY HEART RATE, PT ADDITIONAL VITALS ARE STABLE BUT I GAVE PRN HEART MED AND NOTIFIED THE MD, NO NEW ORDERED RECIEVED.
--- NOTE | 2022-12-08 06:39 | NUR ---
THOUGH HEART RATE HAS BEEN IN THE 90s AT TIMES IT HAS GONE UP TO 170-180 PT SHOWS NO DISTRESSVERT TIRED AND TRYING TO SLEEP. ASKING ABOUT EGD THIS MORNING BUT I HAVE NO ADDITONAL INFORMATION REGARDING THAT. WILL REPORT OFF TO DAY SHIFT
--- NOTE | 2022-12-08 15:01 | NUR ---
EXTENDED DWELL CATHETER TO LEFT UPPER ARM FLUSHES WELL AND DRESSING C/D/I.
--- NOTE | 2022-12-08 15:02 | NUR ---
INTO [facility] VIA [employer].HISTORY, ALLERGIES, AND MEDICATION LIST REVIEWED. NPO STATUS CONFIRMED. LUNGS CLEAR. NO NOTED SOB, BUT PT DOES HAVE MOIST, NON-PRODUCTIVE COUGH. SATS 100% ON RA. PT REQUESTS THAT DR. WU CONTACT HER ALEX AFTER THE PROCEDURE.
--- NOTE | 2022-12-08 16:14 | NUR ---
12/08/22 1614 Jesus Melo HISTORY, CHART, MEDICATIONS AND ALLERGIES REVIEWED BEFORE START OF PROCEDURE. PATIENT CONFIRMS NPO STATUS AND AGREES WITH SCHEDULED PROCEDURE. 3-LEAD EKG REVIEWED WITH PHYSICIAN PRIOR TO START OF PROCEDURE. MONITOR INTACT WITH CONTINUOUS PULSE OXIMETRY,CAPNOGRAPHY, 3-LEAD EKG, INTERMITTENT BP. SUPPLEMENTAL O2 TO BE TITRATED THROUGHOUT PROCEDURE TO MAINTAIN O2 SATURATION ABOVE 90%. PATIENT DETERMINED TO BE ASA APPROPRIATE FOR PROPOFOL SEDATION PRIOR TO START OF PROCEDURE BY DR. WU.
--- NOTE | 2022-12-08 19:09 | NUR ---
SPOKE TO DR WU- POST PROCEDURE DR WU CAME TO SEE THE PT AND CALL THE SPOUSE HE STATED THE PT HAS SUCH A SMALL OPENING IN HER STOMACH SHE CAN NOT TAKE PILLS. ALL MEDS NEED TO BE CRUSHED OR IN LIQUID FORM. PT HAS METOPROLOL SUCCINATE THAT CAN NOT BE CRUSHED. OK TO GIVE THAT AT THIS TIME, HOWEVER A CRUSHABLE VERSION IS NEEDED. SPOKE TO BA IN PHARMACY AND THE ONLY MEDS THAT CAN NOT BE CRUSHED IS THE GABAPENTIN AND THE AMOXICILLIN (OTHER THAN THE METOPROLOL XL). CONSUELO COSME IS GOING TO SWITCH TO LIQUID FORMS OFTHESE MEDS.
--- NOTE | 2022-12-08 20:20 | NUR ---
SHIFT SUMMARY- PT ALERT AND ORIENTED. UPPER SCOPE WAS COMPLETED TODAY, BP'S WERE SOFT T/O THE DAY. MORNING DOSE OF BETA BLOCKERS HELD D/T LOW BP AND PT NPO STATUS. SBP WAS [address] WU OK TO GIVE THE EVENING METOPROLOL WITH PUDDING, SHE WILL NEED TO BE SWITCHED TO A CRUSHABLE VERSION. PER DR WU PT MEDS THAT CAN NOT BE CRUSHED WILL HAVE TO BE IN LIQUID FORM. CALLED PHARMACY AND GOT THESE MED SWITCHED TO LIQUID FORM. PT SWITCHED TO FULL LIQUID DIET. BEDSIDE REPORT COMPLETED WITH NIGHT RN, PT IN BED, CALL LIGHT IN REACH NO S&S OF DISTRESSA T THE TIME OF REPORT.
[2022-12-09] VITALS (58 sets, daily range): BP systolic 82–155; BP diastolic 16–113
--- NOTE | 2022-12-09 03:15 | NUR ---
CALLED REGARDING PTS HEART RATE. PTS HEART RATE WAS A-FIB 177 DESPITE RECIEVING 5MG OF IV LOPRESSOR. PER GIVEN 15MG OF IV CARDIZEM AND IF HEART RATE DOES NOT COME DOWN TO UNDER 120 CALL BACK.
--- NOTE | 2022-12-09 04:05 | NUR ---
CALLED REGARDING PTS HEART RATE, A-FIB 140'S. WELL THE PTS BLOOD PRESSURE IS 93/39, THE PT IS DIAPHORETIC AND THE PTS BREATHING IS LABORED. PER TRANSFER PT TO PCU TO START A CARDIZEM DRIP. O2 THERAPY INITIATED AT THIS TIME.
--- NOTE | 2022-12-09 04:15 | NUR ---
REPORT GIVEN TO MARIANO QUESADA IN ICU. PT TRANSFERING TO ICU NOW.
[2022-12-09 04:51] LABS: Hematocrit 35.5 % (33.0-51.0); Hemoglobin 11.1 g/dL (11.5-16.0); Mean Corpuscular HGB 35.4 pg (26.0-34.0); Mean Corpuscular HGB Conc 31.3 g/dL (31.5-36.5); Mean Platelet Volume 10.5 fL (9.1-12.4); NRBC ABSOLUTE 0.06 K/mm3 (0.00-0.02); NRBC Auto 0.5 /100 WBC (0.0-0.2); Platelet Count 176 K/mm3 (150-400); RDW Coefficient Variation 15.7 % (11.7-14.2); RDW Standard Deviation 65.2 fL (35.1-46.3); Red Blood Cell Count 3.14 M/mm3 (3.80-5.20); White Blood Cell Count 11.37 K/mm3 (4.00-11.30)
[2022-12-09 04:56] LABS: Mean Corpuscular Volume 113 fL (80-100)
[2022-12-09 04:59] LABS: PO2 Arterial 252 mmHg (80-100)
[2022-12-09 05:00] LABS: pH Blood Arterial 7.28 (7.35-7.45)
[2022-12-09 05:01] LABS: PCO2 Arterial 18.5 mmHg (35-45)
[2022-12-09 05:11] LABS: Bun/Creatinine Ratio 11.8 (12.0-20.0); Calcium, Blood 8.2 mg/dL (8.5-10.1); Creatinine, Blood 0.85 mg/dL (0.40-1.00); Potassium, Blood 4.5 mmol/L (3.5-5.5)
--- NOTE | 2022-12-09 05:15 | NUR ---
CALLED PT SPOUSE TO NOTIFY THEM THAT THE PT HAD BEEN TRANSFERED TO ICU, PTS SPOUSE ALREADY AWARE.
--- NOTE | 2022-12-09 06:12 | NUR ---
ARRIVED TO ICU AT 0430 PT TRANSFERED TO ICU FROM MEDICAL FLOOR. PT WAS DIAPHORETIC, HYPOTENSIVE, AND TACHYCARDIC. DR MEDLEY PLACED SEVERAL ORDERS WHEN SHE FIRST ARRIVED. PT IS A/O X4 BUT TACHYPINIC AND CAN ONLY SAY 1-2 WORDS AT A TIME. AFEBRILE. SHE WAS BROUGHT DOWN ON 3L NC AND TITRATED UP TO 6L NC AND PLACED ON NON-REBREATHER; VERY CHALLENGING TO GET A SPO2 READING; AFTER ABC COMPLETED, DECREASED O2 TO 3LNC. AFTER INTERVENTIONS INCLUDING 500ML BOLUS, INCREASE IN CRACKLES HEARD, PT PLACED ON CPAP 10, FIO2 40%; RR CONT TO BE HIGH 30'S TO LOW 40'S. HR SINCE ARRIVAL TO ICU CONT TO BE 140-150'S; AMIODERONE GTT STARTED AT 1MCG/MIN. CHALLENGING TO RECORD AN ACCURATE BP, WITH CUFF ON RT LEG, SBP 110-120; LEVOPHED ORDERED BUT NOT STARTED. BLADDER SCAN COMPLETED THAT SHOWED 75ML'S; WAITING TO GET UA. MOTTLING NOTED TO BUE AND BILATERAL FEET; PT IS PALE. DR MEDLEY AT BEDSIDE AT ONE TIME. ADDITIONAL PIV PLACED BY ULTRASOUND. NS INFUSING NOW AT 150ML/HR. WILL REPORT TO AM RN WHEN AVIALBLE.
[2022-12-09 06:50] LABS: Albumin/Globulin Ratio 0.5 (0.8-1.8); Bilirubin, Total 1.6 mg/dL (0.1-1.0); Bun/Creatinine Ratio 12.4 (12.0-20.0); Calcium, Blood 8.4 mg/dL (8.5-10.1); Creatinine, Blood 0.8 mg/dL (0.40-1.00); Globulin, Blood 4.2 g/dL (2.2-4.0); Potassium, Blood 4.4 mmol/L (3.5-5.5); Total Protein, Blood 6.2 g/dL (6.4-8.2)
--- NOTE | 2022-12-09 07:00 | NUR ---
ASSUMPTION OF CARE PT RECEIVING AMIODARONE 1MG/MIN AND NS 150ML/HR. CPAP IN PLACE BUT TRANSITIONED TO 3L NC FOR SPEECH THERAPY EVAL. PT IS ALERT AND PARTICIPATING IN CONVERSATION. LUNGS ARE CLEAR AND DIMINISHED. AFIB ON MONITOR WITH RATE 110S-140S. SBP 110S. BED IN LOW POSITION AND CALL LIGHT WITHIN REACH. SEE SHIFT ASSESSMENT.
--- NOTE | 2022-12-09 09:35 | NUR ---
Pt feeling nauseous immediately after morning med pass. Pt heaving and vomited up small amount of applesauce. No medications visible in emesis. Pt medicated with Zofran with relief of nausea.
--- NOTE | 2022-12-09 09:44 | NUR ---
Dr. Bangura at bedside rounding on pt. New orders received.
--- NOTE | 2022-12-09 09:46 | NUR ---
infrastructure tech at bedside.
--- NOTE | 2022-12-09 12:04 | NUR ---
Pt lying in bed for our visit. She is alert, oriented and pleasant. She lives at home with her Alberto. They've been 43 years, and Alberto does help with pt's care as he is able. He is currently looking for in home caregivers for the pt, as she states she will not be going to SNF for rehab. She states she will rehab better at home. Pt states she does suffer from mild depression at times r/t loss of movility, declining health. 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 She remains a full code, but states her AD states she would not want to live on life support, or with a trach and PEG. However, she does state she would be willing to live with a feeding tube if need be, related to her esophageal stricture. She states she feels comfortable with her current plan of care, and does not wish to make any changes at this time. Palliative care will remain available.
[2022-12-09 13:41] LABS: Source, Urine Foley catheter
[2022-12-09 13:56] LABS: Appearance, Urine Hazy (Clear); Blood, Urine 1+ (Neg); Color, Urine Amber (P-Yellow); Glucose Qualitative, Urine Neg (Neg); Ketones, Urine 1+ (Neg); Leukocyte Esterase, Urine 3+ (Neg); Nitrite, Urine Neg (Neg); Protein, Urine 2+ (Neg); Urobilinogen, Urine NORM (Normal)
[2022-12-09 14:10] LABS: Bilirubin, Urine 1+ (Neg)
[2022-12-09 14:12] LABS: Amorphous Light (0-Heavy); Mucus Mod (0-Heavy); Red Blood Cells, Urine 0-2 /hpf (0-2); Squamous Epithelial Cells Few /hpf (Few); Transitional Epithelial Cells Few /hpf (0-Rare); White Blood Cells, Urine TNTC /hpf (0-5)
[2022-12-09 14:13] LABS: Bacteria Many /hpf
--- NOTE | 2022-12-09 17:49 | NUR ---
SHIFT SUMMARY PT RECEIVING AMIODARONE 0.5MG/MIN. RATE DECREASED TO MAINTENANCE DOSE AT 11:17. PT IS ALERT AND ORIENTED. SHE PARTICIPATES IN CONVERSATION AND HAS A PLEASANT AFFECT. SHE ASSISTS WITH CARE CAPABLE. SHE IS ON RA WITH SPO2 >95%. CPAP REMAINS AT BEDSIDE. PT DENIES SOB. LUNGS ARE CLEAR/DIMINISHED. PT TOLERATED LIQUID MEDS AND CRUSHED MEDS WITH APPLESAUCE. PT HAD ONE EPISODE OF EMESIS THIS AM. MEDICATED PER EMAR WITH RELIEF. PT C/O GENERALIZED ALL OVER PAIN, MEDICATED PER EMAR. ABDOMEN SOFT. 1 BM THIS SHIFT. CLEANING PLACED THIS SHIFT FOR CRITICAL I/O, DARK [place] URINE. ONE DOSE OF LASIX GIVEN. URINE IS NOW CLEAR YELLOW WITH SHIFT OUPTUT 1950ML. PT EDUCATED REGARDING IGNITION SOURCES AND ROUNDED HOURLY FOR SAFETY. BED IN LOW POSITION, CALL LIGHT WITHIN REACH.
--- NOTE | 2022-12-09 17:55 | NUR ---
Met with pt and her along with manager paper this afternoon. The pt and her were extremely focused on making short term plans with caregivers and HH support. We then focused on planning for the future. Both pt and her spouse were open to the discussion. They admitted they have thought about pt's declining health, but have never verbalized it. They agree to spend some time discussing goals of care. Pt stated today she wants a "meaningful life" as opposed to a "long life". They both verbalized appreciation for the conversation, and pt asked for another visit with this RN tomorrow.
--- NOTE | 2022-12-09 22:00 | NUR ---
ASSUMED CARE AT 1900 PT LAYING IN BED WATCHING TV AT SHIFT CHANGE. SHE IS A/O X4 AND USES CALL LIGHT APPROPRIATLY; MILD DYSPHAGIA NOTED WHEN TALKING TO HER. SPO2 CHALLENGING TO READ; WHEN READING COME THROUGH, SPO2 >98% ON 1L MC; NO C/O DYSPNIA; DRY COUGH NOTED. AFERBILE. SHE IS EITHER IN NSR OR SINUS ARRHYTHMIA WITH RATE 70-80'S; AMIODERONE INFUSING AT 0.5MCG/MIN. SBP 130-150'S. CLEANING IN PLACE AND DRAINING TO GRAVITY. SEE SHIFT ASSESSMENT FOR FULL ASSESSMENT.
[2022-12-10] VITALS (59 sets, daily range): BP systolic 77–142; BP diastolic 54–117
--- NOTE | 2022-12-10 02:11 | NUR ---
UPDATE AT 0120 PT RHYTHM CHANGED TO IRREGULAR TACHYCARDIA WITH RATE 130-140'S. SHE IS ASYMPTOMATIC AND WAS SLEEPING WHEN THIS OCCURED. PRN PUSH OF METOPROLOL GIVEN WITH OUT RELIEF. BP STABLE WITH SBP 120. WCTM.
[2022-12-10 04:36] LABS: Hematocrit 30.9 % (33.0-51.0); Mean Corpuscular HGB 34.8 pg (26.0-34.0); Mean Corpuscular HGB Conc 32.4 g/dL (31.5-36.5); Mean Corpuscular Volume 108 fL (80-100); Mean Platelet Volume 11.3 fL (9.1-12.4); NRBC ABSOLUTE 0.03 K/mm3 (0.00-0.02); NRBC Auto 0.4 /100 WBC (0.0-0.2); Platelet Count 126 K/mm3 (150-400); RDW Coefficient Variation 15.8 % (11.7-14.2); RDW Standard Deviation 61.6 fL (35.1-46.3); Red Blood Cell Count 2.87 M/mm3 (3.80-5.20); White Blood Cell Count 6.91 K/mm3 (4.00-11.30)
[2022-12-10 05:11] LABS: Albumin, Blood 1.8 g/dL (3.4-5.0); Albumin/Globulin Ratio 0.5 (0.8-1.8); Bilirubin, Total 1.3 mg/dL (0.1-1.0); Bun/Creatinine Ratio 14.2 (12.0-20.0); Calcium, Blood 7.9 mg/dL (8.5-10.1); Creatinine, Blood 0.77 mg/dL (0.40-1.00); Globulin, Blood 3.8 g/dL (2.2-4.0); Magnesium, Blood 1.3 mg/dL (1.6-2.4); Phosphorus, Blood 2.2 mg/dL (2.5-4.9); Potassium, Blood 3.6 mmol/L (3.5-5.5); Total Protein, Blood 5.6 g/dL (6.4-8.2)
--- NOTE | 2022-12-10 06:48 | NUR ---
END OF SHIFT SUMMARY PT WAS ABLE TO SLEEP SINCE 0. SHE IS A/O X4 AND USES CALL LIGHT APPROPRIATLY. SPO2 CHALLENGING TO READ, WHEN A READING IS AVAILABLE SPO2 >98% ON RA; NO C/O DYSPNEA; RR LOW 20'S. PT IN TACHYCARDIA FROM 0120 TO 0510, SWITCHED BACK TO NRS/SINUS ARRHYTHMIA AND THEN BACK TO TACHYCARDIA AND CONT TO BE IN TACHYCARDIA WITH RATE IN 130-150'S; AMIODERONE CONT TO INFUSE AT 0.5MCG/MIN. BP STABLE DURING THESE TRANSITIONS WITH SBP 110-140'S. ONE SMALL BM THIS SHIFT. CLEANING IN PLACE AND DRAINING TO GRAVITY. WILL REPORT TO AM RN WHEN AVAILABLE.
--- NOTE | 2022-12-10 07:33 | NUR ---
Assumed care of pt at 0700. Report received from Malka QUINTANA. Pt A&O x 4. Answers questions, follows commands, verbalizes needs. Pleasant and cooperative with care. Pt's son visiting with patient.
--- NOTE | 2022-12-10 11:11 | NUR ---
Patient did not get amiodarone bolus or drip. Pt lost PIV to R arm and only had powerglide to L side. Plan for PICC line, however PICC nurse is not available. Prioritized giving potassium phosphate and magnesium. ICU provider aware. Pt converted back to normal sinus rhtyhm at 0930. Notified Dr Mahajan. Provider stated that amiodarone can be discontinued. Updated Dr Dc.
--- NOTE | 2022-12-10 17:45 | NUR ---
Patient had 7 beat run of vtach. Dr Dc aware. Pt asymptomtic. Labs ordered
[2022-12-10 17:59] LABS: Magnesium, Blood 1.5 mg/dL (1.6-2.4); Phosphorus, Blood 2.3 mg/dL (2.5-4.9); Potassium, Blood 2.9 mmol/L (3.5-5.5)
--- NOTE | 2022-12-10 18:25 | NUR ---
SUMMARY Neuro: Patient is A&O x 4. Answers questions, follows commands, verbalizes needs. Pleasant and cooperative with care. Moves all extremities with equal strength and range of motion. Required 2 doses pain medication for "joint pain" related to osteoarthritis. Pt takes pain meds at baseline. Musc/ADLs: Requires assist with all ADLs including repositioning. Worked with physical therapy today and pt reports she was able to stand on either side of the bed. Received CHG bath, linen change. Resp: SpO2 90% or greater with RA. Lungs clear t/o. Cardiac: Unchanged edema. New PICC line this shift as PIV infiltrated this morning. Small amount of bleeding noted to insertion site. Amiodarone stopped early this morning and was never restarted. Converted back to sinus rhythm around 0930 and has remained in sinus rhtyhm with PACs since (other than run of vta, see previous note) GI: Tolerating full liquid diet well. No BM this shift. : Good urine output from [facility] today. Skin: Unchanged from initial assessment. Psych: Pleasant and cooperative. Spouse in to see patient today.
--- NOTE | 2022-12-10 20:00 | NUR ---
ASSUMPTION OF CARE PT RESTING COMFORTABLY AT BEGINNING OF SHIFT. A&OX4, PLEASANT AND COOPERATIVE. RESP WNL. HEART RATE IN 60S-70S SINUS WITH PACS. EDEMATOUS THROUGHOUT. CLEANING IN PLACE AND DRAINING TO GRAVITY. COMPLAINS OF CHRONIC PAIN IN JOINTS. MEDICATED WITH HOME DOSE OF OXYCODONE. EDUCATED ON POLICIES REGARDING SMOKING IN HOSPITAL. PT VERBALIZES UNDERSTANDING.
[2022-12-11] VITALS (41 sets, daily range): BP systolic 81–127; BP diastolic 58–101
[2022-12-11 03:35] LABS: BASOPHILS ABSOLUTE AUTO 0.06 K/mm3 (0.00-0.23); BASOPHILS PERCENT AUTO 1 % (0-2); EOSINOPHILS ABSOLUTE AUTO 0.17 K/mm3 (0.00-0.68); EOSINOPHILS PERCENT AUTO 3 % (0-6); Hematocrit 30.3 % (33.0-51.0); IMMATURE GRAN ABSOLUTE AUTO 0.03 K/mm3 (0.00-0.10); IMMATURE GRAN PERCENT AUTO 1 % (0-1); LYMPHOCYTES ABSOLUTE AUTO 1.09 K/mm3 (0.84-5.20); LYMPHOCYTES PERCENT AUTO 21 % (21-46); MONOCYTES ABSOLUTE AUTO 0.33 K/mm3 (0.16-1.47); MONOCYTES PERCENT AUTO 6 % (4-13); Mean Corpuscular HGB 35.5 pg (26.0-34.0); Mean Corpuscular Volume 107 fL (80-100); Mean Platelet Volume 11.5 fL (9.1-12.4); NEUTROPHILS ABSOLUTE AUTO 3.56 K/mm3 (1.96-9.15); NEUTROPHILS PERCENT AUTO 68 % (41-73); NRBC ABSOLUTE 0.03 K/mm3 (0.00-0.02); NRBC Auto 0.6 /100 WBC (0.0-0.2); Platelet Count 108 K/mm3 (150-400); RDW Coefficient Variation 15.7 % (11.7-14.2); RDW Standard Deviation 61.4 fL (35.1-46.3); Red Blood Cell Count 2.82 M/mm3 (3.80-5.20); White Blood Cell Count 5.24 K/mm3 (4.00-11.30)
[2022-12-11 03:51] LABS: Albumin, Blood 1.6 g/dL (3.4-5.0); Albumin/Globulin Ratio 0.4 (0.8-1.8); Bilirubin, Total 1.1 mg/dL (0.1-1.0); Bun/Creatinine Ratio 13.2 (12.0-20.0); Calcium, Blood 7.7 mg/dL (8.5-10.1); Creatinine, Blood 0.76 mg/dL (0.40-1.00); Globulin, Blood 3.6 g/dL (2.2-4.0); Magnesium, Blood 1.5 mg/dL (1.6-2.4); Phosphorus, Blood 2.6 mg/dL (2.5-4.9); Potassium, Blood 3.9 mmol/L (3.5-5.5); Total Protein, Blood 5.2 g/dL (6.4-8.2)
--- NOTE | 2022-12-11 05:07 | NUR ---
SHIFT SUMMARY NO ACUTE EVENTS OVERNIGHT. NEURO STATUS REMAINS INTACT. REMAINED IN SINUS RYTHYM WITH PACS RATE IN THE 70S. BPS MID 90S/60S WHILE SLEEPING. DIFFICULT TO GET CONSISTANT SPO2 READINGS. ALL SPOT CHECKS SPO2 WERE >95%. PT SEEMED TO GET A LOT OF SLEEP TONIGHT. DID REFUSE MOST TURNS BUT DOES SHIFT HER OWN WEIGHT FROM TIME TO TIME WHEN SLEEPING. PICC DRESSING CHANGED. MAGNESIUM REPLACEMENT CURRENTLY RUNNING. NEXT ELECTROLYTE LABS SET FOR 1200 ON 12/11
--- NOTE | 2022-12-11 07:35 | NUR ---
AM NOTE... ASSUMED CARE OF PT AT 0700. PT IS A&Ox4 AT THE TIME OF THIS ASSESSMENT. SHE IS IN SR w/PACs IN THE 70'S, BP IS STABLE WITH MAPS >65. PT HAS 2+ EDEMA NOTED TO HER BUE AND 3+ TO HER BLE. SHE DENIES ANY CHEST PAIN OR SOB. SHE IS ON RA WITH O2 SATS >92% L/S CLEAR IN THE UPPER LOBES WITH FINE CRACKLES NOTED TO THE MID AND LOWER LOBES BILATERALLY. TEMP IS 98.3. BT PRESENT AND NORMOACTIVE, ABD IS SOFT AND NONTENDER TO PALPATION. CLEANING IS PATENT AND DRAINING TO GRAVITY. CALL LIGHT IN REACH WILL CONTINUE TO MONITOR.
--- NOTE | 2022-12-11 09:23 | NUR ---
PT UPDATE.... STARTING AT APROX 0900 THE PT STARTED TO FLIP BETWEEN SR IN THE 70'S TO AFIB W/RVR IN THE 140'S-170'S. PT'S BP IS SOFT BUT STABLE WITH MAPS >65. PT C/O OF SOME SOB AND CHEST TIGHTNESS OF 7/10 WITH RVR. SET UP PERSON WAS CALLED AND NOTIFIED. NO NEW ORDERS. WILL CONTINUE TO MONITOR.
[2022-12-11 09:43] LABS: Albumin, Blood 1.7 g/dL (3.4-5.0); Albumin/Globulin Ratio 0.4 (0.8-1.8); Bilirubin, Total 1.4 mg/dL (0.1-1.0); Bun/Creatinine Ratio 16.1 (12.0-20.0); Calcium, Blood 7.6 mg/dL (8.5-10.1); Creatinine, Blood 0.56 mg/dL (0.40-1.00); Potassium, Blood 3.8 mmol/L (3.5-5.5); Total Protein, Blood 5.7 g/dL (6.4-8.2)
[2022-12-11 12:50] LABS: Albumin, Blood 1.7 g/dL (3.4-5.0); Albumin/Globulin Ratio 0.4 (0.8-1.8); Bilirubin, Total 1.4 mg/dL (0.1-1.0); Bun/Creatinine Ratio 13.6 (12.0-20.0); Calcium, Blood 7.6 mg/dL (8.5-10.1); Creatinine, Blood 0.66 mg/dL (0.40-1.00); Globulin, Blood 4.1 g/dL (2.2-4.0); Magnesium, Blood 1.8 mg/dL (1.6-2.4); Potassium, Blood 4.1 mmol/L (3.5-5.5); Total Protein, Blood 5.8 g/dL (6.4-8.2)
--- NOTE | 2022-12-11 14:34 | NUR ---
Assumed care at approximately 1400. Bedside report received. Pt resting in bed at time of report, denies needs. Amiodarone infusing at 1mg/min. Pt on room air. HR variable between 120-160s, VS otherwise stable. Will continue to monitor.
--- NOTE | 2022-12-11 18:16 | NUR ---
Shift summary. Pt rested in bed this afternoon, no acute events. Pt intermittently switching from Afib w/rvr to sinus rhythm. Pt asymptomatic when in Afib. Hourly rounding done to assess fire risk, nothing noted. Will report off to nightshift RN.
--- NOTE | 2022-12-11 19:00 | NUR ---
ASSUMPTION OF CARE PT RESTING COMFORTABLY AT BEGINNING OF SHIFT TALKING WITH SPOUSE AND SON IN ROOM. A&OX4 BUT FORGETFUL AT TIMES. VERY PLEASANT AND COOPERATIVE. CURRENTLY IN AFIB 140S-150S, AMIO GTT AT .5MG/HR. PT STATES SHE IS NOT SYMPTOMATIC AT THIS TIME. BP LOW 100S/70S. VERY EDEMATOUS AND DIFFICULT TO GET ACCURATE READS WITH BP CUFF. PT DID RECIEVE LASIX TODAY WITH GOOD URINE OUTPUT. CLEANING DRAINING TO GRAVITY. SATTING WELL ON ROOM AIR.
--- NOTE | 2022-12-11 20:59 | NUR ---
ASSUMPTION OF CARE PT RESTING COMFORTABLY IN ROOM WITH SPOUSE AND SON. CURRENTLY IN AFIB 140S. AMIO GTT AT .5MG/HR. REPORTS SHE IS NOT SYMPTOMATIC AT THIS TIME. VERY EDEMATOUS IN EXTREMITIES, RECIEVED LASIX TODAY WITH GOOD URINE OUTPUT, CLEANING DRAINING TO GRAVITY A&OX4 BUT FORGETFUL AT TIMES. SATTING WELL ON ROOM AIR. CHRONIC PAIN TREATED WITH OXYCODONE Q4.
--- NOTE | 2022-12-11 21:00 | NUR ---
UPDATE HR CONTINUES TO STAY LONGER IN 160S-170S. ON JUL IT WAS NOTED THAT 1600 METOP WAS NOT GIVEN D/T LOW BP. CALL MADE TO DR. DUGAN, WITH AN OK TO GIVE [address] CROUCH ALSO ORDERED REPEAT, POTASSIUM, MAG AND PHOSPHATE.
--- NOTE | 2022-12-11 22:00 | NUR ---
UPDATE PT CONVERTED TO SUSTAINED SINUS RYTHYM FOR LAST 20 MINUTES WITH OCCASIONAL PACS.
[2022-12-11 22:24] LABS: Magnesium, Blood 1.7 mg/dL (1.6-2.4); Phosphorus, Blood 1.9 mg/dL (2.5-4.9)
[2022-12-12] VITALS (17 sets, daily range): BP systolic 89–137; BP diastolic 51–81
[2022-12-12 03:33] LABS: BASOPHILS ABSOLUTE AUTO 0.05 K/mm3 (0.00-0.23); BASOPHILS PERCENT AUTO 1 % (0-2); EOSINOPHILS ABSOLUTE AUTO 0.12 K/mm3 (0.00-0.68); EOSINOPHILS PERCENT AUTO 2 % (0-6); Hematocrit 31.5 % (33.0-51.0); Hemoglobin 10.3 g/dL (11.5-16.0); IMMATURE GRAN ABSOLUTE AUTO 0.02 K/mm3 (0.00-0.10); IMMATURE GRAN PERCENT AUTO 0 % (0-1); LYMPHOCYTES ABSOLUTE AUTO 1.57 K/mm3 (0.84-5.20); LYMPHOCYTES PERCENT AUTO 28 % (21-46); MONOCYTES ABSOLUTE AUTO 0.38 K/mm3 (0.16-1.47); MONOCYTES PERCENT AUTO 7 % (4-13); Mean Corpuscular HGB 35.3 pg (26.0-34.0); Mean Corpuscular HGB Conc 32.7 g/dL (31.5-36.5); Mean Corpuscular Volume 108 fL (80-100); Mean Platelet Volume 11.2 fL (9.1-12.4); NEUTROPHILS ABSOLUTE AUTO 3.38 K/mm3 (1.96-9.15); NEUTROPHILS PERCENT AUTO 61 % (41-73); Platelet Count 95 K/mm3 (150-400); RDW Coefficient Variation 15.9 % (11.7-14.2); RDW Standard Deviation 62.5 fL (35.1-46.3); Red Blood Cell Count 2.92 M/mm3 (3.80-5.20); White Blood Cell Count 5.52 K/mm3 (4.00-11.30)
[2022-12-12 03:49] LABS: Albumin, Blood 1.4 g/dL (3.4-5.0); Albumin/Globulin Ratio 0.4 (0.8-1.8); Bilirubin, Total 1.2 mg/dL (0.1-1.0); Bun/Creatinine Ratio 11.1 (12.0-20.0); Creatinine, Blood 0.72 mg/dL (0.40-1.00); Globulin, Blood 3.7 g/dL (2.2-4.0); Magnesium, Blood 1.6 mg/dL (1.6-2.4); Phosphorus, Blood 2.7 mg/dL (2.5-4.9); Potassium, Blood 3.8 mmol/L (3.5-5.5); Total Protein, Blood 5.1 g/dL (6.4-8.2)
--- NOTE | 2022-12-12 05:24 | NUR ---
SHIFT SUMMARY PT HAS STAYED IN SINUS RYTHM WITH OCCASIONAL PACS SINCE AROUND 2200 THIS SHIFT. BPS AROUND LOW 100S/70S FOR MOST OF THIS SHIFT WELL. NO CHANGE TO MENTATION. DID PUT PT ON 1L NC OVERNIGHT FOR AN OCCASIONAL DESAT WHEN SLEEPING. PT DOES NOT REPORT LESLIE. DID SOME PHOSPHATE REPLACEMENT THIS SHIFT. AMIO GTT REMAINS AT .5MG/HR. GOOD URINE OUTPUT WITH CLEANING DRAINING TO GRAVITY. DID HAVE A MOMENT AROUND 0500 WHERE PT DID REPORT SOB. UPON ASSESSMENT THERE WAS NO CHANGE TO LUNG SOUNDS, SATS REMAIN IN HIGH 90S. DID REPOSITION PT IN BED AND SHE REPORTS TO FEELING BETTER AFTERWARD.
--- NOTE | 2022-12-12 07:09 | NUR ---
Assumed care. Bedside report received from nightshift RN. Pt resting comfortably, A&O, on RA. HR sinus rhythm, VS stable. Pt denies needs att, will continue to monitor.
--- NOTE | 2022-12-12 21:58 | NUR ---
UPDATE PT TRANSFERED TO [facility] WITH BELONGINGS. FAMILY NOTIFIED
[2022-12-13] VITALS (41 sets, daily range): BP systolic 54–123; BP diastolic 38–96
[2022-12-13 05:00] LABS: Hematocrit 33.4 % (33.0-51.0); Hemoglobin 11.1 g/dL (11.5-16.0)
[2022-12-13 05:20] LABS: Bun/Creatinine Ratio 11.7 (12.0-20.0); Calcium, Blood 7.5 mg/dL (8.5-10.1); Creatinine, Blood 0.6 mg/dL (0.40-1.00); Potassium, Blood 3.9 mmol/L (3.5-5.5)
--- NOTE | 2022-12-13 05:25 | NUR ---
PT IS A&O3 FORGETFUL AT TIMES, BEDREST. PURIWICK IN PLACE, RA, VSS, PRN PAIN MEDICATION GIVEN X2 PER JUL, HR HAS BEEN STABLE IN SR THROUGHOUT THE SHIFT, FIRE SAETY EDUCATION PROVIDED, NO ACUTE OVERNIGHT EVENTS, CONTINUE POC
--- NOTE | 2022-12-13 18:00 | NUR ---
SHIFT SUMMARY PT ALERT, ORIENTED x4; CALM AND COOPERATIVE WITH CARE. PT RESTING IN BED, REPOSITIONS SELF IND. PT REPORTS BACK PAIN, MEDICATED PER EMAR. PT DENIES CHEST PAIN/PRESSURE, SOB, NAUSEA, DIZZINESS AND NUMB/TINGLING. SPO2 >90% ON RA, BREATHING EVEN AND UNLABORED. TELE SINUS 80-100'S, JUMPING UP TO 150-180, BP WNL THIS AM. NOTIFIED DR MEDLEY THIS AM, PT ON TOPROL XL AND ARE UNABLE TO CRUSH, NEW ORDERS FOR LOPRESSOR 50 MG Q8, ADMINISTERED FIRST DOSE. DR MEDLEY AND DR NARAYAN AT BEDSIDE, DISCUSSING MEDICATION CHANGES, NEW ORDERS FOR BISOPROLOL OR BYSTOLIC, NOTIFIED MDs THOSE MEDICATIONS ARE NOT AVALIABLE THROUGH PHARMACY, NEW ORDERS FOR COREG 12.5 MG PO BIDM, CLARIFIED FIRST DOSE NOW SINCE PT HAD LOPRESSER, OK TO GIVE FIRST DOSE NOW, LOSARTAN 25MG PO DAILY AT 1200, AND AMIODARONE 400 TID FOR 3 DAY, 400MG BID FOR 4 DAYS AND 200 MG DAILY AFTER THAT. APPROX 1115, BP SOFT, MAP LESS THAN 65, NOTIFIED DR MEDLEY, NEW ORDER FOR 500CC BOLUS, BP TRENDING UP FOR SHORT TIME, NOTIFIED DR MEDLEY, NEW ORDERS FOR ADDITIONAL BOLUS. PT CONTINUES TO HAVE SOFT BP, WILL CONTINUE TO MONITOR, DR MEDLEY AWARE. ABD SOFT NONTENDER. EDEMA NOTE BLE. OTHER VSS. NO OTHER ACUTE CHANGES NOTED. WILL CONTINUE TO MONITOR.
[2022-12-14] VITALS (8 sets, daily range): BP systolic 99–129; BP diastolic 56–76
--- NOTE | 2022-12-14 00:53 | NUR ---
SAFETY & EDUCATION PT & FAMILY EDUCATED RE: IGNITION SOURCES AND RISK OF INJURY WHILE OXYGEN IS IN USE. PT DENIES SMOKING & PT AND FAMILY VERBALIZE UNDERSTANDING.
[2022-12-14 04:19] LABS: Hematocrit 27.9 % (33.0-51.0); Hemoglobin 9.2 g/dL (11.5-16.0); Mean Corpuscular HGB 35.4 pg (26.0-34.0); Mean Corpuscular Volume 107 fL (80-100); Mean Platelet Volume 11.4 fL (9.1-12.4); Platelet Count 71 K/mm3 (150-400); RDW Coefficient Variation 15.8 % (11.7-14.2); RDW Standard Deviation 62.3 fL (35.1-46.3); White Blood Cell Count 5.42 K/mm3 (4.00-11.30)
[2022-12-14 04:33] LABS: Bun/Creatinine Ratio 13.8 (12.0-20.0); Calcium, Blood 7.3 mg/dL (8.5-10.1); Creatinine, Blood 0.65 mg/dL (0.40-1.00); Potassium, Blood 3.9 mmol/L (3.5-5.5)
--- NOTE | 2022-12-14 04:45 | NUR ---
SHIFT SUMMARY PT A&Ox4, CALLS AND COMMUNICATES NEEDS APPROPRIATELY. BP SOFT WITH SBP 90's, MAP> 65, ASYMPTOMATIC. SINUS 70's, DENIES CP/PRESSURE. SpO2> 92% RA, DENIES SOB. PT REQUESTS TO HAVE PURECATY, D/T INCONTINENCE AT TIMES. NPO AT 0000. MANAGED PT's PAIN PER EMAR. NO OTHER EVENTS, WILL REPORT TO ONCOMING RN.
--- NOTE | 2022-12-14 11:48 | NUR ---
Spiritual Care Visit. Pt. is awake in bed and welcomes my visit. Pt. is pleasant and displays an attitude of awareness and engagement, and verbalized wanting to do whatever it takes to improve her health. Pt. verbalized how difficult her illness has been on her . Listen with empathy and a calming presence. Pt. displays evidence of trust and a hopeful attitude. Pryaed with Pt. and Pt. verbalized gratitude for the spiritual care visit.
--- NOTE | 2022-12-14 18:57 | NUR ---
SHIFT SUMMARY PT ALERT, ORIENTED x4 CALM AND COOPERTIVE WITH CARE. PT RESTING IN BED, UP TO BSC SEVERAL TIMES DUIRNG SHIFT WITH 1 PERSON ASSIST. PT REPORTING CHRONIC PAIN T/O JOINTS DURING SHIFT, MEDICATED PER EMAR. PT DENIES CHEST PAIN/PRESSURE, SOB, NAUSEA, DIZZINESS AND NUMB/TINGLING. TELE SINUS 70-90'S, BP WNL, STALBE. SPO2 >90% ON RA, BREATHING EVEN AND UNLABORED. ABD SOFT NONTENDER, BM DURING SHIFT. EDEMA NOTED TO BLE. OTHER VSS. NO OTHER ACUTE CHANGES NOTED. WILL CONTINUE TO MONITOR.
[2022-12-15 03:25] VITALS: BP 125/68
[2022-12-15 03:49] LABS: Hemoglobin 9.1 g/dL (11.5-16.0); Mean Corpuscular HGB 35.3 pg (26.0-34.0); Mean Corpuscular HGB Conc 32.5 g/dL (31.5-36.5); Mean Corpuscular Volume 109 fL (80-100); Mean Platelet Volume 11.6 fL (9.1-12.4); Platelet Count 84 K/mm3 (150-400); RDW Coefficient Variation 15.8 % (11.7-14.2); RDW Standard Deviation 62.8 fL (35.1-46.3); Red Blood Cell Count 2.58 M/mm3 (3.80-5.20); White Blood Cell Count 6.04 K/mm3 (4.00-11.30)
[2022-12-15 04:16] LABS: Bun/Creatinine Ratio 17.6 (12.0-20.0); Calcium, Blood 7.5 mg/dL (8.5-10.1); Creatinine, Blood 0.62 mg/dL (0.40-1.00); Potassium, Blood 4.1 mmol/L (3.5-5.5)
--- NOTE | 2022-12-15 04:41 | NUR ---
SHIFT SUMMARY SEE PREVIOUS NOTE. PT A&Ox4, CALLS AND COMMUNICATES NEEDS APPROPRIATELY. BP STABLE, SINUS 70's, DENIES CP/PRESSURE. SpO2> 92% RA, DENIES SOB. PT REQUESTS TO HAVE PUREDAVYCK, D/T INCONTINENCE AT TIMES. MANAGED PT's PAIN PER EMAR. NO OTHER EVENTS, WILL REPORT TO ONCOMING RN.
[2022-12-15 07:41] VITALS: BP 115/61
[2022-12-15] MEDS ORDERED: AMIODARONE HCL400 M2 PO (12:38)
[2022-12-15] MEDS ORDERED: CARV6.25 PO (12:46)
[2022-12-15] MEDS ORDERED: MELATONIN5 M1 PO (12:47)
[2022-12-15] MEDS ORDERED: LOSA25 PO (12:47)
[2022-12-15] MEDS ORDERED: FURO40 PO (12:48)
[2022-12-15] MEDS ORDERED: POTA20LUD PO (12:48)
[2022-12-15] MEDS ORDERED: MORP20L PO (12:49)
[2022-12-15 13:14] VITALS: BP 101/75
[2022-12-15] MEDS ORDERED: KONVOMEP 2-84 M90 ML PO (13:50)
--- NOTE | 2022-12-15 16:03 | NUR ---
PT DISCHARGE TO HOME WITH DISCHARGE ORDERS WITH HOME HEALTH. AT THE [facility] DISCHARGE INFORMATION WAS DISCLOSED WITH THE PT. PT HAS BEEN MEDICATED FOR LOW BACK PAIN TWICE FOR THE SHIFT. VITALS HRR SR 80'S, SBP 100-120'S, SATS ABOVE 95% ON RA, AFEBRILE. PT TO FF-UP WITH GI, PCP AND MEDICAL TECHNOLOGIST CLINICAL PER DC INSTRUCTION BOTH AND PT VERBALIZED UNDERSTANDING. PT TO CONTINUE PUREE AND LIQUID DIET. NO OTHER ISSUES REPORTED. ACCOMPANIED VIA WHEELCHAIR FOR TRANSPORT ALL BELONGINGS SENT WITH THE PT
== END 2022-12-15 14:37 | disposition home or self-care (01) | DRG 291 ==
LOC: ER 12:27 → ICUE 20:17 → MEDS 20:17 → PCU 20:17 → ICUE 20:27 → MEDS 20:30 → ICUE 12-04 14:32 → PCU 12-04 15:44 → MEDS 12-05 11:36 → ICUE 12-09 04:28 → PCU 12-12 22:11
PROVIDERS: Emergency Medicine; Internal Medicine; Internal Medicine Critical Care Medicine; Nurse Practitioner Acute Care; Student in an Organized Health Care Education/Training Program; ADMIT Hospitalist
PROC: 02HV33Z Insertion of Infusion Device into Superior Vena Cava, Percutaneous Approach (ICD-10-PCS; principal; 2022-12-03)
PROC: 4A033R1 Measurement of Arterial Saturation, Peripheral, Percutaneous Approach (ICD-10-PCS; 2022-12-03)
PROC: 3E033XZ Introduction of Vasopressor into Peripheral Vein, Percutaneous Approach (ICD-10-PCS; 2022-12-03)
PROC: 30233J1 Transfusion of Nonautologous Serum Albumin into Peripheral Vein, Percutaneous Approach (ICD-10-PCS; 2022-12-03)
PROC: B548ZZA Ultrasonography of Superior Vena Cava, Guidance (ICD-10-PCS; 2022-12-03)
PROC: 0DJ08ZZ Inspection of Upper Intestinal Tract, Via Natural or Artificial Opening Endoscopic (ICD-10-PCS; 2022-12-08)
PROC: 5A09357 Assistance with Respiratory Ventilation, Less than 24 Consecutive Hours, Continuous Positive Airway Pressure (ICD-10-PCS; 2022-12-09)
PROC: 0T9B70Z Drainage of Bladder with Drainage Device, Via Natural or Artificial Opening (ICD-10-PCS; 2022-12-09)
PROC: 02HV33Z Insertion of Infusion Device into Superior Vena Cava, Percutaneous Approach (ICD-10-PCS; 2022-12-11)
DX: R57.0 Cardiogenic shock (principal); I50.23 Acute on chronic systolic (congestive) heart failure; J96.00 Acute respiratory failure, unspecified whether with hypoxia or hypercapnia; K22.10 Ulcer of esophagus without bleeding; N39.0 Urinary tract infection, site not specified; F11.20 Opioid dependence, uncomplicated; I13.0 Hypertensive heart and chronic kidney disease with heart failure and stage 1 through stage 4 chronic kidney disease, or unspecified chronic kidney disease; Z68.1 Body mass index [BMI] 19.9 or less, adult; I48.19 Other persistent atrial fibrillation; I50.32 Chronic diastolic (congestive) heart failure; I48.0 Paroxysmal atrial fibrillation; E03.9 Hypothyroidism, unspecified; I25.10 Atherosclerotic heart disease of native coronary artery without angina pectoris; K21.9 Gastro-esophageal reflux disease without esophagitis; R13.10 Dysphagia, unspecified; G89.29 Other chronic pain; I25.5 Ischemic cardiomyopathy; K22.2 Esophageal obstruction; D69.6 Thrombocytopenia, unspecified; M19.90 Unspecified osteoarthritis, unspecified site; B96.20 Unspecified Escherichia coli [E. coli] as the cause of diseases classified elsewhere; N18.9 Chronic kidney disease, unspecified; E78.5 Hyperlipidemia, unspecified; D63.1 Anemia in chronic kidney disease; I35.0 Nonrheumatic aortic (valve) stenosis; R74.01 Elevation of levels of liver transaminase levels; G47.00 Insomnia, unspecified; E86.0 Dehydration; R63.0 Anorexia; R19.5 Other fecal abnormalities; E87.6 Hypokalemia; Z96.653 Presence of artificial knee joint, bilateral; M54.9 Dorsalgia, unspecified; E86.1 Hypovolemia; K44.9 Diaphragmatic hernia without obstruction or gangrene; Z85.3 Personal history of malignant neoplasm of breast; Z95.2 Presence of prosthetic heart valve; Z79.01 Long term (current) use of anticoagulants; Z79.02 Long term (current) use of antithrombotics/antiplatelets; Z88.8 Allergy status to other drugs, medicaments and biological substances; Z88.5 Allergy status to narcotic agent; Z91.038 Other insect allergy status; Z79.899 Other long term (current) drug therapy; Z79.890 Hormone replacement therapy; I25.2 Old myocardial infarction; Z90.49 Acquired absence of other specified parts of digestive tract; Z86.73 Personal history of transient ischemic attack (TIA), and cerebral infarction without residual deficits; Z90.710 Acquired absence of both cervix and uterus; Z90.89 Acquired absence of other organs; Z98.891 History of uterine scar from previous surgery; Z98.890 Other specified postprocedural states; Z95.5 Presence of coronary angioplasty implant and graft; Z87.442 Personal history of urinary calculi; Z98.1 Arthrodesis status; Z90.722 Acquired absence of ovaries, bilateral; Z79.51 Long term (current) use of inhaled steroids
CPT/HCPCS: 36415; 36556; 36600; 51701; 51702; 71045; 74176; 80048; 80053; 81001; 82272; 82803; 82947; 83605; 83690; 83735; 83880; 84100; 84132; 84145; 84443; 84484; 85014; 85018; 85025; 85027; 86850; 86900; 86901; 87040; 87077; 87086; 87186; 87507; 92526; 92610; 93005; 93010; 93306; 94660; 94760; 96361-59; 96365-59; 96366-59; 96368; 96375-59; 97110; 97162; 97530; 99291-25; A9270; C1751; C9113; J0282; J0696; J1650; J1940; J2405; J2704; J3475; J3480; J7030; J7040; J7050; J7060; J7120; P9047

== ENCOUNTER 2023-01-13 12:35 | Emergency (ER) | payer BC ==
[~2023-01-13] VITALS: Ht 167.6 cm; Wt 78.0 kg
[~2023-01-13 12:35] MED LIST changes: +AMIODARONE HCL400 M2 PO; +CARV6.25 PO; +CENTRUM SILVER1 EAC2 PO; +KONVOMEP 2-84 M90 ML PO; +MELATONIN5 M1 PO; +MORP20L PO; +POTA20LUD PO
[2023-01-13 13:07] LABS: BASOPHILS ABSOLUTE AUTO 0.03 K/mm3 (0.00-0.23); BASOPHILS PERCENT AUTO 1 % (0-2); EOSINOPHILS ABSOLUTE AUTO 0.01 K/mm3 (0.00-0.68); EOSINOPHILS PERCENT AUTO 0 % (0-6); Hemoglobin 10.7 g/dL (11.5-16.0); IMMATURE GRAN ABSOLUTE AUTO 0.02 K/mm3 (0.00-0.10); IMMATURE GRAN PERCENT AUTO 0 % (0-1); LYMPHOCYTES ABSOLUTE AUTO 1.59 K/mm3 (0.84-5.20); LYMPHOCYTES PERCENT AUTO 25 % (21-46); MONOCYTES ABSOLUTE AUTO 0.91 K/mm3 (0.16-1.47); MONOCYTES PERCENT AUTO 14 % (4-13); Mean Corpuscular HGB 34.6 pg (26.0-34.0); Mean Corpuscular HGB Conc 34.5 g/dL (31.5-36.5); Mean Corpuscular Volume 100 fL (80-100); Mean Platelet Volume 9.5 fL (9.1-12.4); NEUTROPHILS ABSOLUTE AUTO 3.75 K/mm3 (1.96-9.15); NEUTROPHILS PERCENT AUTO 59 % (41-73); Platelet Count 191 K/mm3 (150-400); RDW Standard Deviation 47.6 fL (35.1-46.3); Red Blood Cell Count 3.09 M/mm3 (3.80-5.20); White Blood Cell Count 6.31 K/mm3 (4.00-11.30)
[2023-01-13 13:35] LABS: Albumin, Blood 1.8 g/dL (3.4-5.0); Albumin/Globulin Ratio 0.4 (0.8-1.8); Bun/Creatinine Ratio 12.1 (12.0-20.0); Calcium, Blood 7.3 mg/dL (8.5-10.1); Creatinine, Blood 0.58 mg/dL (0.40-1.00); Globulin, Blood 4.5 g/dL (2.2-4.0); Magnesium, Blood 1.5 mg/dL (1.6-2.4); Potassium, Blood 3.2 mmol/L (3.5-5.5); Thyroid Stimulating Hormone 2.04 uIU/mL (0.360-4.800); Total Protein, Blood 6.3 g/dL (6.4-8.2)
[2023-01-13 15:59] LABS: Source, Urine Clean Catch
[2023-01-13 16:12] LABS: Appearance, Urine Cloudy (Clear); Bilirubin, Urine Neg (Neg); Blood, Urine 2+ (Neg); Color, Urine Yellow (P-Yellow); Glucose Qualitative, Urine Neg (Neg); Ketones, Urine Neg (Neg); Leukocyte Esterase, Urine 3+ (Neg); Nitrite, Urine Pos (Neg); Protein, Urine 2+ (Neg); Urobilinogen, Urine 2+ (Normal)
[2023-01-13 16:22] LABS: Bacteria Many /hpf; Squamous Epithelial Cells Few /hpf (Few); White Blood Cells, Urine TNTC /hpf (0-5)
[2023-01-13] MEDS ORDERED: SULTRIDS PO (16:32)
[2023-01-13 17:05] VITALS: BP 95/66
== END 2023-01-13 17:32 | disposition home or self-care (01) ==
LOC: ER 12:35
PROVIDERS: Emergency Medicine
DX: I95.9 Hypotension, unspecified (principal); N39.0 Urinary tract infection, site not specified; E86.0 Dehydration; R00.0 Tachycardia, unspecified; E87.6 Hypokalemia; E83.42 Hypomagnesemia; E83.51 Hypocalcemia; I48.0 Paroxysmal atrial fibrillation; I25.10 Atherosclerotic heart disease of native coronary artery without angina pectoris; I11.0 Hypertensive heart disease with heart failure; I50.42 Chronic combined systolic (congestive) and diastolic (congestive) heart failure; M19.90 Unspecified osteoarthritis, unspecified site; K21.9 Gastro-esophageal reflux disease without esophagitis; Z85.3 Personal history of malignant neoplasm of breast; I25.2 Old myocardial infarction
CPT/HCPCS: 80053; 81001; 83735; 84443; 85025; 87077; 87086; 87186; 93005; 93010; 99285-25; A9270